=== PATIENT | female | born 1955 | race African-American/Black ===

== ENCOUNTER → 2016-09-04 | Outpatient (CLI) | payer OTHER ==
[~2016-09-04] MED LIST: REGADENOSON INJ 0.4 MG/5 ML DISP.SYRIN IV ONE
== END ==
LOC: RAD 07:32
DX: R06.00 Dyspnea, unspecified (principal); I10 Essential (primary) hypertension; I50.9 Heart failure, unspecified
CPT/HCPCS: 93017; 78452; A9500; J2785; Q9969

== ENCOUNTER 2016-11-06 21:18 | Emergency (ER) | payer OTHER ==
--- NOTE | 2016-11-07 01:53 | ER Document Report ---
HPI - HPI Patient complains to provider of: fall, hip and back pain Pain Level: 5 Context: Patient is a 61-year-old female that comes emergency department for chief complaint of pain in her lower back and in her left hip and leg. Patient states about 2 days ago she was moving boxes outside and lost her balance, she states she landed on a hard surface on her left hip/buttocks. She states the pain is worsened. She took ibuprofen with no relief. She denies bowel or bladder incontinence or retention, she denies focal numbness or weakness, her only complaint is pain in the areas she struck on the ground. She denies a blood thinner. - REPRODUCTIVE Reproductive: DENIES: : - DERM Skin Color: Normal Past Medical History - General Information source: Patient - Social History Smoking Status: Never Smoker Chew tobacco use (# tins/day): No Frequency of alcohol use: None Drug Abuse: None Lives with: Family Family History: Reviewed & Not Pertinent Patient has suicidal ideation: No Patient has homicidal ideation: No - Past Medical History Cardiac Medical History: Reports: Hx Congestive Heart Failure, Hx Heart Attack, Hx Hypercholesterolemia, Hx Hypertension Denies: Hx Coronary Artery Disease Pulmonary Medical History: Reports: Hx Asthma, Hx COPD Denies: Hx Bronchitis, Hx Pneumonia, Hx Tuberculosis Neurological Medical History: Denies: Hx Cerebrovascular Accident, Hx Seizures Endocrine Medical History: Reports: Hx Diabetes Mellitus Type 2 Renal/ Medical History: Denies: Hx Peritoneal Dialysis Malignancy Medical History: Reports: Hx Ovarian Cancer, Hx Renal (Kidney) Cancer GI Medical History: Reports: Hx Irritable Bowel Musculoskeltal Medical History: Denies Hx Arthritis Past Surgical History: Reports: Hx Abdominal Surgery - bladder suspension, mass removal, Hx Appendectomy, Hx Section, Hx Cholecystectomy, Hx Gynecologic Surgery - tubal and hysterectomy mass removed from retroperitoneal, Hx Hysterectomy, Hx Orthopedic Surgery - back, Hx Tonsillectomy. Denies: Hx Pacemaker - Immunizations Hx Diphtheria, Pertussis, Tetanus Vaccination: No Vertical Provider Document - CONSTITUTIONAL General Appearance: No Apparent Distress - Patient in no distress, when she moves she moves somewhat uncomfortably, Obese - INFECTION CONTROL TRAVEL OUTSIDE OF THE [place] IN LAST 30 DAYS: No - HEENT HEENT: Atraumatic, Normocephalic - NECK Neck: Normal Inspection - RESPIRATORY Respiratory: Breath Sounds Normal, No Respiratory Distress O2 Sat by Pulse Oximetry: 97 - CARDIOVASCULAR Cardiovascular: Regular Rate, Regular Rhythm - GI/ABDOMEN Gastrointestinal: Abdomen Soft, Abdomen Non-Tender - BACK Back: Abnormal Inspection - Patient with tenderness in the bilateral lumbar paraspinal musculature, mild midline tenderness, no saddle anesthesia, normal cervical and thoracic exam, normal upper and lower extremity range of motion, strength, distal neurovascular exam. Patient has painful passive and active elevation of the legs from lying down (mildly positive straight leg raise on both sides). - MUSCULOSKELETAL/EXTREMETIES Musculoskeletal/Extremeties: MAEW, FROM, Tender - Patient with tenderness over the left proximal femoral trochanter extending to the proximal thigh, no swelling or trauma noted - NEURO Level of Consciousness: Awake, Alert, Appropriate Motor/Sensory: No Motor Deficit, No Sensory Deficit - DERM Integumentary: Warm, Dry, No Rash Course - Re-evaluation Re-evalutation: Imaging with no acute abnormalities, patient instructed to stop taking ibuprofen because of history of diabetes, hypertension, and acute renal failure , advised to drink plenty of fluids, take the pain medication, rest, follow-up with primary care. Discussed return precautions in detail. Patient states understanding and agreement. - Vital Signs Vital signs: Temp Pulse Resp BP Pulse Ox 98.1 F 61 20 151/81 H 97 11/06/16 22:10 11/06/16 22:10 11/06/16 22:10 11/06/16 22:10 11/06/16 22:10 - Diagnostic Test Radiology reviewed: Image reviewed, Reports reviewed Discharge - Discharge Clinical Impression: Left hip pain Lower back pain Qualifiers: Chronicity: acute Back pain laterality: bilateral Sciatica presence: without sciatica Qualified Code(s): M54.5 - Low back pain Condition: Stable Disposition: HOME, SELF-CARE Additional Instructions: X-rays do not show any new findings. Rest, apply heat to the area, take pain medication as directed, avoid lifting/ twisting for now. Follow-up with primary care. Take stool softener to avoid constipation on the pain medication. Return to the emergency department for any concerning or worsening symptoms including severe pain, numbness, loss of bowel or bladder control, fever, etc. Prescriptions: Docusate Sodium [Colace 100 mg Capsule] 100 mg PO DAILY #30 capsule Oxycodone HCl/Acetaminophen [Percocet 5-325 mg Tablet] 1 - 2 tab PO Q4H PRN #20 tablet PRN Reason: Forms: Elevated Blood Pressure Referrals: [facility] [Primary Care Provider] - Follow up as needed
[2016-11-07] MEDS ORDERED: HYDROCODONE/ACETAMINOPHEN 5-325 MG 6 TAB/DSPK PO PRN (03:27)
[2016-11-07 04:22] VITALS: BP 151/68
== END 2016-11-07 04:22 | disposition home or self-care (01) ==
LOC: ER 21:18
DX: M54.5 Low back pain (principal); M25.552 Pain in left hip; M79.605 Pain in left leg; W19.XXXA Unspecified fall, initial encounter; Y93.89 Activity, other specified; I25.2 Old myocardial infarction; I10 Essential (primary) hypertension; J44.9 Chronic obstructive pulmonary disease, unspecified; J45.909 Unspecified asthma, uncomplicated; E11.9 Type 2 diabetes mellitus without complications; Z98.890 Other specified postprocedural states
CPT/HCPCS: 72110; 99284

== ENCOUNTER → 2016-11-20 | Outpatient (CLI) | payer OTHER ==
[~2016-11-20] MED LIST changes: +ALBUTEROL SULFATE 0.083% NEB 2.5 MG/3 ML AMPUL NEB ONE; -REGADENOSON INJ 0.4 MG/5 ML DISP.SYRIN IV ONE
--- NOTE | 2016-11-22 09:45 | PULMONARY FUNCTION TEST ---
DATE OF SERVICE: 11/20/2016 THE VITAL CAPACITY IS SLIGHTLY DECREASED. THE EXPIRATORY FLOW RATES ARE SLIGHTLY DECREASED. THE FEV1/VC IS 78%, PREDICTED: 82% AFTER BRONCHODILATOR, EXPIRATORY FLOW RATES SHOW NO SIGNIFICANT CHANGE. IMPRESSION: GOOD PATIENT EFFORT. SLIGHT OBSTRUCTIVE DEFECT. CC: TIMUR MOYA MD > JOJO
== END ==
LOC: RT 09:07
PROVIDERS: ATTEND Internal Medicine
DX: R06.09 Other forms of dyspnea (principal)
CPT/HCPCS: 94060

== ENCOUNTER → 2017-01-31 | Outpatient (CLI) | payer OTHER ==
--- NOTE | 2017-01-31 08:43 | RADIOLOGY REPORT (SQ) ---
EXAM DESCRIPTION: LUMBAR SPINE COMPLETE COMPLETED DATE/TIME: 01/31/2017 7:54 am REASON FOR STUDY: S/P BACK SURGERY BACK PAIN COMPARISON: 11/07/2016. NUMBER OF VIEWS: Five views including obliques. TECHNIQUE: AP, lateral, oblique, and sacral radiographic images acquired of the lumbar spine. LIMITATIONS: None. FINDINGS: MINERALIZATION: Normal. SEGMENTATION: Normal. No transitional anatomy. ALIGNMENT: Normal. VERTEBRAE: Maintained height. No fracture or worrisome bone lesion. DISCS: Multilevel disc space narrowing with osteophytes. POSTERIOR ELEMENTS: Pedicles and facets are intact. No pars defect or posterior arch defects. Marke d Facet arthropathy is present. HARDWARE: Postsurgical changes noted lower lumbar spine from prior decompression. PARASPINAL SOFT TISSUES: Normal. PELVIS: Intact as visualized. No fractures or worrisome bone lesions. SI joints intact. OTHER: No other significant finding. IMPRESSION: Advanced multilevel degenerative disc disease, spondylosis, and facet arthropathy, simil ar to prior study. Postsurgical changes in the lower lumbar spine, unchanged. TECHNICAL DOCUMENTATION: JOB ID: [id number] [employer]- All Rights Reserved
== END ==
LOC: CCC 07:23
DX: M54.9 Dorsalgia, unspecified (principal); E55.9 Vitamin D deficiency, unspecified
CPT/HCPCS: 36415; 72110; 82306

== ENCOUNTER 2017-02-12 22:35 | Emergency (ER) | payer OTHER ==
[2017-02-13 00:19] LABS: ABSOLUTE EOSINOPHILS # (AUTO) 0.1 10^3/uL (0.0-0.6); ABSOLUTE LYMPHOCYTES (AUTO) 1.5 10^3/uL (0.5-4.7); ABSOLUTE MONOCYTES (AUTO) 0.5 10^3/uL (0.1-1.4); ABSOLUTE NEUT (AUTO) 3.4 10^3/uL (1.7-8.2); BASOPHILS % (AUTO) 0.5 % (0-2); EOSINOPHILS % (AUTO) 2.3 % (0-6); HEMATOCRIT 36.8 % (36.0-47.0); HEMOGLOBIN 11.5 g/dL (12.0-15.5); HGB HCT DIFFERENCE -2.3; LYMPHOCYTES % (AUTO) 26.4 % (13-45); MEAN CORPUSCULAR HEMOGLOBIN 22.3 pg (27.0-33.4); MEAN CORPUSCULAR HGB CONC 31.2 g/dL (32.0-36.0); MEAN CORPUSCULAR VOLUME 72 fl (80-97); MONOCYTES % (AUTO) 9.7 % (3-13); RED BLOOD COUNT 5.14 10^6/uL (3.72-5.28); RED CELL DISTRIBUTION WIDTH 15.5 % (11.5-14.0); SEGMENTED NEUTROPHILS % (AUTO) 61.1 % (42-78); WHITE BLOOD COUNT 5.6 10^3/uL (4.0-10.5)
--- NOTE | 2017-02-13 00:20 | RADIOLOGY REPORT (SQ) ---
EXAM DESCRIPTION: CHEST SINGLE VIEW COMPLETED DATE/TIME: 02/13/2017 12:05 am REASON FOR STUDY: shortness of breath COMPARISON: 11.20.16 EXAM PARAMETERS: NUMBER OF VIEWS: One view. TECHNIQUE: Single frontal radiographic view of the chest acquired. RADIATION DOSE: NA LIMITATIONS: None. FINDINGS: LUNGS AND PLEURA: No opacities, masses or pneumothorax. No pleural effusion. MEDIASTINUM AND HILAR STRUCTURES: No masses. Contour normal. HEART AND VASCULAR STRUCTURES: Heart normal in size. Normal vasculature. BONES: No acute findings. HARDWARE: Left central line tip at the proximal left brachiocephalic vein, stable. OTHER: No other significant finding. IMPRESSION: No acute cardiopulmonary findings. TECHNICAL DOCUMENTATION: JOB ID: [id number]
[2017-02-13 00:33] LABS: ALANINE AMINOTRANSFERASE 29 U/L (9-52); ALKALINE PHOSPHATASE 84 U/L (38-126); ANION GAP 12 (5-19); ASPARTATE AMINO TRANSFERASE 13 U/L (14-36); BILIRUBIN,DIRECT 0.3 mg/dL (0.0-0.4); BILIRUBIN,TOTAL 0.5 mg/dL (0.2-1.3); BLOOD UREA NITROGEN 17 mg/dL (7-20); CALCIUM 9.1 mg/dL (8.4-10.2); CARBON DIOXIDE 27 mmol/L (22-30); CHLORIDE 104 mmol/L (98-107); CREATININE RESULT 0.67 mg/dL (0.52-1.25); GLUCOSE 109 mg/dL (75-110); POTASSIUM 3.7 mmol/L (3.6-5.0); TOTAL PROTEIN 7.1 g/dL (6.3-8.2)
[2017-02-13] MEDS ORDERED: PREDNISONE 20 MG TABLET PO ONE (00:35)
[2017-02-13] MEDS ORDERED: IPRATROPIUM/ALBUTEROL 0.5-2.5 MG/3 ML AMPUL NEB ONE (00:36)
[2017-02-13] MEDS ORDERED: AZITHROMYCIN 250 MG TABLET PO ONE (00:39)
--- NOTE | 2017-02-13 00:41 | ER Document Report ---
ED General - General Chief Complaint: Shortness Of Breath Stated Complaint: HEADACHE Time Seen by Provider: 02/13/17 00:03 Notes: Patient is a 61-year-old female who presents with 1 months of progressively worsening shortness of breath. Describes as difficulty getting air out. She has been trying her inhalers at home without any significant improvement of her symptoms. She does have a history of COPD and asthma. She has not seen a primary care doctor regarding today's concerns. Denies any acute worsening of her symptoms today but states that she was tired of feeling this way so came to the emergency department. She has never required intubation or hospitalization for COPD. She has not had any fever, chest pain, syncope or lower extremity edema. Notes that when her breathing gets bad she tends to get a diffuse, throbbing, mild headache. Denies any headache at the time of my assessment although states she had one earlier today. TRAVEL OUTSIDE OF THE [place] IN LAST 30 DAYS: No - Related Data Allergies/Adverse Reactions: levofloxacin [From Levaquin] Allergy (Severe, Verified 11/06/16 22:16) Shortness of Breath carisoprodol [From Soma] Allergy (Verified 11/06/16 22:16) Past Medical History - General Information source: Patient - Social History Smoking Status: Former Smoker Frequency of alcohol use: None Drug Abuse: None Lives with: Spouse/Significant other Family History: Reviewed & Not Pertinent Patient has suicidal ideation: No Patient has homicidal ideation: No - Past Medical History Cardiac Medical History: Reports: Hx Congestive Heart Failure, Hx Heart Attack, Hx Hypercholesterolemia, Hx Hypertension Denies: Hx Coronary Artery Disease Pulmonary Medical History: Reports: Hx Asthma, Hx COPD Denies: Hx Bronchitis, Hx Pneumonia, Hx Tuberculosis Neurological Medical History: Denies: Hx Cerebrovascular Accident, Hx Seizures Endocrine Medical History: Reports: Hx Diabetes Mellitus Type 2 Renal/ Medical History: Denies: Hx Peritoneal Dialysis Malignancy Medical History: Reports: Hx Ovarian Cancer, Hx Renal (Kidney) Cancer GI Medical History: Reports: Hx Irritable Bowel Musculoskeltal Medical History: Denies Hx Arthritis Past Surgical History: Reports: Hx Abdominal Surgery - bladder suspension, mass removal, Hx Appendectomy, Hx Section, Hx Cholecystectomy, Hx Gynecologic Surgery - tubal and hysterectomy mass removed from retroperitoneal, Hx Hysterectomy, Hx Orthopedic Surgery - back, Hx Tonsillectomy. Denies: Hx Pacemaker - Immunizations Hx Diphtheria, Pertussis, Tetanus Vaccination: No Review of Systems - Review of Systems Notes: Constitutional: Negative for fever. HENT: Negative for sore throat. Eyes: Negative for visual changes. Cardiovascular: Negative for chest pain. Respiratory: Positive for shortness of breath. Gastrointestinal: Negative for abdominal pain, vomiting or diarrhea. Genitourinary: Negative for dysuria. Musculoskeletal: Negative for back pain. Skin: Negative for rash. Neurological: Negative for headaches, weakness or numbness. 10 point ROS negative except as marked above and in HPI. Physical Exam - Vital signs Vitals: Temp Pulse Resp BP Pulse Ox 98.1 F 80 20 184/88 H 95 02/12/17 22:39 02/12/17 22:39 02/12/17 22:39 02/12/17 22:39 02/12/17 22:39 Interpretation: Hypertensive Notes: PHYSICAL EXAMINATION: GENERAL: Well-appearing, well-nourished and in no acute distress. HEAD: Atraumatic, normocephalic. EYES: Pupils equal round and reactive to light, extraocular movements intact, sclera anicteric, conjunctiva are normal. ENT: nares patent, oropharynx clear without exudates. Moist mucous membranes. NECK: Normal range of motion, supple without lymphadenopathy LUNGS: Breath sounds clear to auscultation bilaterally and equal. Expiratory wheezing in all lung hummel HEART: Regular rate and rhythm without murmurs ABDOMEN: Soft, nontender, normoactive bowel sounds. No guarding, no rebound. No masses appreciated. EXTREMITIES: Normal range of motion, no pitting or edema. No cyanosis. NEUROLOGICAL: No focal neurological deficits. Moves all extremities spontaneously and on command. PSYCH: Normal mood, normal affect. SKIN: Warm, Dry, normal turgor, no rashes or lesions noted. Course - Re-evaluation Re-evalutation: 02/13/17 00:39 Patient presents with a mild exacerbation of their baseline COPD. Mild wheezing at time of presentation but vitals do not show significant hypoxemia or tachypnea. No retractions. Patient did clinically improve after receiving nebulizers here in the emergency department. Chest x-ray without evidence of an acute pneumonia. Laboratories do not show acute kidney injury or significant leukocytosis. Patient able to ambulate without any respiratory distress. Based on patient's overall reassuring assessment, I believe they are stable for outpatient management with steroids and oral antibiotics. Patient has nebulizers at home. I do not suspect an acute alternative pathology at this time based on history and exam including acute pulmonary embolus, ACS, pneumothorax, or aortic dissection. At this time will discharge with return precautions and follow-up recommendations. Verbal discharge instructions given a the bedside and opportunity for questions given. Medication warnings reviewed. Patient is in agreement with this plan and has verbalized understanding of return precautions and the need for primary care follow-up in the next 24-72 hours. - Vital Signs Vital signs: Temp Pulse Resp BP Pulse Ox 98.3 F 80 13 134/73 H 97 02/13/17 00:07 02/12/17 22:39 02/13/17 01:01 02/13/17 01:01 02/13/17 01:01 - Laboratory Result Diagrams: 02/13/17 00:05 02/13/17 00:05 Laboratory results interpreted by me: 02/13/17 02/13/17 00:05 00:05 Hgb 11.5 L MCV 72 L MCH 22.3 L MCHC 31.2 L RDW 15.5 H AST 13 L - Diagnostic Test Radiology reviewed: Image reviewed, Reports reviewed Radiology results interpreted by me: 02/13/17 00:42 Chest x-ray: No acute infiltrate or pneumothorax Discharge - Discharge Clinical Impression: COPD exacerbation Condition: Good Disposition: HOME, SELF-CARE Additional Instructions: You were seen for a COPD exacerbation. Your symptoms improved with treatment here in the emergency department. However, it is very important that you return to the emergency department immediately if you began to have worsening difficulty breathing that does not respond to your normal home nebulizers. You are also being sent home on a five-day course of steroids that you should start taking tomorrow. Please also take the antibiotics as prescribed. Please also follow closely with your primary care physician. You should eturn to emergency department if you develop fever greater than 101, persistent cough, persistent vomiting, pass out, or any other symptoms that are concerning to you. Prescriptions: Azithromycin 250 mg PO DAILY #4 tablet Prednisone [Deltasone 20 mg Tablet] 3 tab PO DAILY 5 Days
[2017-02-13 01:15] VITALS: BP 134/73
--- NOTE | 2017-02-13 08:31 | EKG REPORT ---
SEVERITY:- ABNORMAL ECG - SINUS RHYTHM LEFT VENTRICULAR HYPERTROPHY : Confirmed by: María De Leon 13-Feb-2017 08:30:32
== END 2017-02-13 01:15 | disposition home or self-care (01) ==
LOC: ER 22:35
DX: J44.1 Chronic obstructive pulmonary disease with (acute) exacerbation (principal); R06.02 Shortness of breath; R51 Headache; Z87.891 Personal history of nicotine dependence
CPT/HCPCS: 93005; 94640; 99285; 36415; 85025; 80053; 83880; 71010; 93010; J7512; J7620

== ENCOUNTER → 2017-05-01 | Outpatient (CLI) | payer OTHER ==
--- NOTE | 2017-05-01 15:58 | XCELERA REPORT ---
[address] [address] Lower Extremity Venous Evaluation Name: MAXINE DON Age: 61 yrs Gender: Female : 1955 Patient Status: Outpatient Patient Location: Study Date: 05/01/2017 11:09 AM Procedure: Color flow and duplex imaging bilaterally of the veins of the lower extremities as well as the Common Femoral veins. Reason For Study: BLE EDEMA Ordering Physician: KARLI CONNELLY Performed By: Cindy Will Right Sided Venous Evaluation Normal vessel filling wall to wall, compression and augmentation as well as Colour flow down to the infrageniculate veins. Left Sided Venous Evaluation Normal vessel filling wall to wall, compression and augmentation as well as Colour flow down to the infrageniculate veins. Interpretation Summary No duplex evidence of DVT or obstruction in the bilateral lower extremities. : KARLI CONNELLY > Magdaleno Jefferson
== END ==
LOC: SP 10:54
PROVIDERS: ATTEND Family Medicine
DX: R60.1 Generalized edema (principal)
CPT/HCPCS: 93970

== ENCOUNTER 2017-05-03 21:27 | Inpatient (IN) | payer OTHER ==
[2017-05-03] MEDS ORDERED: IPRATROPIUM/ALBUTEROL 0.5-2.5 MG/3 ML AMPUL NEB ONE (22:24)
[2017-05-03] MEDS ORDERED: METHYLPREDNISOLONE INJ 125 MG/2 ML SDV IV ONE (22:24)
[2017-05-03 22:58] LABS: ABSOLUTE EOSINOPHILS # (AUTO) 0.2 10^3/uL (0.0-0.6); ABSOLUTE LYMPHOCYTES (AUTO) 1.4 10^3/uL (0.5-4.7); ABSOLUTE MONOCYTES (AUTO) 0.6 10^3/uL (0.1-1.4); ABSOLUTE NEUT (AUTO) 2.5 10^3/uL (1.7-8.2); EOSINOPHILS % (AUTO) 5.1 % (0-6); HEMOGLOBIN 11.4 g/dL (12.0-15.5); HGB HCT DIFFERENCE -1.8; LYMPHOCYTES % (AUTO) 29.7 % (13-45); MEAN CORPUSCULAR HEMOGLOBIN 23.2 pg (27.0-33.4); MEAN CORPUSCULAR HGB CONC 31.6 g/dL (32.0-36.0); MEAN CORPUSCULAR VOLUME 73 fl (80-97); MONOCYTES % (AUTO) 11.6 % (3-13); RED CELL DISTRIBUTION WIDTH 15.6 % (11.5-14.0); SEGMENTED NEUTROPHILS % (AUTO) 52.6 % (42-78); WHITE BLOOD COUNT 4.8 10^3/uL (4.0-10.5)
[2017-05-03] MEDS: MAGNESIUM SULFATE/D5W 1 GM/100 ML RTUPB IV SCH ×2 (23:07→23:38)
[2017-05-03 23:09] LABS: ANION GAP 10 (5-19); BLOOD UREA NITROGEN 17 mg/dL (7-20); CALCIUM 9.6 mg/dL (8.4-10.2); CARBON DIOXIDE 29 mmol/L (22-30); CHLORIDE 104 mmol/L (98-107); CREATININE RESULT 0.65 mg/dL (0.52-1.25); GLUCOSE 102 mg/dL (75-110); POTASSIUM 3.8 mmol/L (3.6-5.0); SODIUM 143.2 mmol/L (137-145)
--- NOTE | 2017-05-03 23:15 | EKG REPORT ---
SEVERITY:- ABNORMAL ECG - SINUS RHYTHM CONSIDER LEFT VENTRICULAR HYPERTROPHY : Confirmed by: María De Leon 03-May-2017 23:15:24
--- NOTE | 2017-05-03 23:15 | RADIOLOGY REPORT (SQ) ---
EXAM DESCRIPTION: CHEST SINGLE VIEW COMPLETED DATE/TIME: 05/03/2017 11:04 pm REASON FOR STUDY: sob COMPARISON: 02/12/2017. NUMBER OF VIEWS: One view. TECHNIQUE: Single frontal radiographic view of the chest acquired. LIMITATIONS: None. FINDINGS: LUNGS AND PLEURA: No opacities, masses or pneumothorax. No pleural effusion. MEDIASTINUM AND HILAR STRUCTURES: No masses. Contour normal. HEART AND VASCULAR STRUCTURES: Heart normal in size. Normal vasculature. BONES: No acute findings. HARDWARE: Central line remains in place. OTHER: No other significant finding. IMPRESSION: NO SIGNIFICANT RADIOGRAPHIC FINDING IN THE CHEST. TECHNICAL DOCUMENTATION: JOB ID: [id number] [facility] [employer]- All Rights Reserved
[2017-05-03 23:22] LABS: TROPONIN I < 0.012 ng/mL
--- NOTE | 2017-05-03 23:25 | ER Document Report ---
ED General - General Chief Complaint: Shortness Of Breath Stated Complaint: TROUBLE BREATHING Time Seen by Provider: 05/03/17 21:53 Notes: Patient is a 61-year-old female with past medical history of COPD, hypertension , who presents with 3 days of progressively worsening shortness of breath. States that she has had severe wheezing at home that has not been responsive to her home albuterol treatments. Exertion significantly worsens her shortness of breath. She denies any chest pain, pleuritic pain or hemoptysis. Has a history of similar symptoms in the past due to COPD exacerbations. She has not seen a primary care doctor regarding today's concerns. She does also note bilateral lower extremity edema that is unchanged today and is been informed that this is due to chronic venous insufficiency as opposed to CHF. TRAVEL OUTSIDE OF THE [place] IN LAST 30 DAYS: No - Related Data Allergies/Adverse Reactions: levofloxacin [From Levaquin] Allergy (Severe, Verified 05/03/17 23:25) Shortness of Breath carisoprodol [From Soma] Allergy (Verified 05/03/17 23:25) Past Medical History - General Information source: Patient - Social History Smoking Status: Former Smoker Frequency of alcohol use: None Drug Abuse: None Lives with: Alone Family History: Reviewed & Not Pertinent Patient has suicidal ideation: No Patient has homicidal ideation: No - Past Medical History Cardiac Medical History: Reports: Hx Congestive Heart Failure, Hx Heart Attack, Hx Hypercholesterolemia, Hx Hypertension Denies: Hx Coronary Artery Disease Pulmonary Medical History: Reports: Hx Asthma, Hx COPD Denies: Hx Bronchitis, Hx Pneumonia, Hx Tuberculosis Neurological Medical History: Denies: Hx Cerebrovascular Accident, Hx Seizures Endocrine Medical History: Reports: Hx Diabetes Mellitus Type 2 Renal/ Medical History: Denies: Hx Peritoneal Dialysis Malignancy Medical History: Reports: Hx Ovarian Cancer, Hx Renal (Kidney) Cancer GI Medical History: Reports: Hx Irritable Bowel Musculoskeltal Medical History: Denies Hx Arthritis Past Surgical History: Reports: Hx Abdominal Surgery - bladder suspension, mass removal, Hx Appendectomy, Hx Section, Hx Cholecystectomy, Hx Gynecologic Surgery - tubal and hysterectomy mass removed from retroperitoneal, Hx Hysterectomy, Hx Orthopedic Surgery - back, Hx Tonsillectomy. Denies: Hx Pacemaker - Immunizations Hx Diphtheria, Pertussis, Tetanus Vaccination: No Review of Systems - Review of Systems Notes: Constitutional: Negative for fever. HENT: Negative for sore throat. Eyes: Negative for visual changes. Cardiovascular: Negative for chest pain. Respiratory: Positive for shortness of breath. Gastrointestinal: Negative for abdominal pain, vomiting or diarrhea. Genitourinary: Negative for dysuria. Musculoskeletal: Negative for back pain. Skin: Negative for rash. Neurological: Negative for headaches, weakness or numbness. 10 point ROS negative except as marked above and in HPI. Physical Exam - Vital signs Vitals: Temp Pulse Resp BP Pulse Ox 98.6 F 73 18 156/87 H 98 05/03/17 21:30 05/03/17 21:30 05/03/17 21:30 05/03/17 21:30 05/03/17 21:30 Interpretation: Hypertensive Notes: PHYSICAL EXAMINATION: GENERAL: Appears uncomfortable, moderately dyspneic HEAD: Atraumatic, normocephalic. EYES: Pupils equal round and reactive to light, extraocular movements intact, sclera anicteric, conjunctiva are normal. ENT: nares patent, oropharynx clear without exudates. Moderately dry mucous membranes. NECK: Normal range of motion, supple without lymphadenopathy LUNGS: Diffuse wheezing in all lung hummel, moderately diminished air movement throughout. No distress. HEART: Regular rate and rhythm without murmurs ABDOMEN: Soft, nontender, normoactive bowel sounds. No guarding, no rebound. No masses appreciated. EXTREMITIES: Normal range of motion, 4+ pitting edema in the bilateral lower extremities is equal and symmetric.. No cyanosis. NEUROLOGICAL: No focal neurological deficits. Moves all extremities spontaneously and on command. PSYCH: Normal mood, normal affect. SKIN: Warm, Dry, normal turgor, no rashes or lesions noted. Course - Re-evaluation Re-evalutation: 05/03/17 23:25 Patient presents with diffuse expiratory wheezing in all lung hummel, moderately diminished air movement throughout. Her initial respiratory was 20- 22 and saturating 100% room air. Suspect likely COPD exacerbation. Patient was started on magnesium, Solu-Medrol and continuous nebulizers. Will continue to monitor closely as although patient's vitals do not suggest a severe exacerbation, her overall clinical picture and appearance as well as lung examination is worrisome for an acute COPD exacerbation with a potential for clinical worsening. 0020 Patient continues to be severely wheezy on exam although continues to move air appropriately. She has not had any significant improvement despite our interventions. Chest x-ray is clear without evidence of an acute pneumothorax or infiltrate. Will continue to monitor. 0040-patient again continues to be severely wheezy, vitals however remain within normal limits, labs unremarkable. Patient was ambulated and her initial heart rate was 62 and rapidly climbed to 228 with ambulation of less than 100 feet in distance. She however did not desaturate although did become quite tachypneic. 0120-I have discussed this case with the hospitalist Dr. Francisco Perez to discuss possible admission. We have agreed that given her normal vitals and reassuring evaluation but continued concerning lung findings and overall appearance that we should continue to monitor here in the emergency department for 1 more hour. We will then re-ambulate the patient and see how she does. If she continues to have persistent tachycardia with ambulation will plan for hospitalization. 05/04/17 02:47 Patient again became severely tachycardic with rate of 124 with ambition from her room to the nursing station and again appeared very uncomfortable. I discussed with Dr. Perez who will admit. - Vital Signs Vital signs: Temp Pulse Resp BP Pulse Ox 98.6 F 56 L 20 140/74 H 100 05/03/17 21:30 05/03/17 23:00 05/03/17 23:00 05/03/17 23:00 05/03/17 23:00 - Laboratory Result Diagrams: 05/03/17 22:45 05/03/17 22:45 Laboratory results interpreted by me: 05/03/17 22:45 Hgb 11.4 L MCV 73 L MCH 23.2 L MCHC 31.6 L RDW 15.6 H - Diagnostic Test Radiology reviewed: Image reviewed, Reports reviewed Radiology results interpreted by me: 05/04/17 02:47 Chest x-ray: No acute infiltrate or pneumothorax - EKG Interpretation by Me Additional EKG results interpreted by me: 05/04/17 02:48 Normal sinus rhythm. Rate 72. No ST elevations or depressions. QTC is 456. Critical Care Note - Critical Care Note Total time excluding time spent on procedures (mins): 37 Comments: Critical care time spent obtaining history from patient or surrogate, discussions with consultants, development of treatment plan with patient or surrogate, evaluation of patient's response to treatment, examination of patient , ordering and performing treatments and interventions, ordering and review of laboratory studies, re-evaluation of patient's condition, ordering and review of radiographic studies and review of old charts Discharge - Discharge Clinical Impression: COPD exacerbation Condition: Good Disposition: ADMITTED OBSERVATION Admitting Provider: Augusto Cortez Chris Unit Admitted: Telemetry
[2017-05-03] MEDS ORDERED: ALBUTEROL SULFATE 0.083% NEB 2.5 MG/3 ML AMPUL NEB ONE (23:51)
[2017-05-04] MEDS ORDERED: CEFTRIAXONE 1 GM/D5W RTU 1 GM/50 ML RTUPB IV ONE (01:32)
[2017-05-04] MEDS ORDERED: AZITHROMYCIN 250 MG TABLET PO ONE (01:32)
[2017-05-04] MEDS ORDERED: ACETAMINOPHEN 325 MG TABLET PO PRN (02:44)
[2017-05-04] MEDS ORDERED: GUAIFENESIN SYRP 200 MG/10 ML UDC PO PRN (02:44)
[2017-05-04] MEDS ORDERED: CHLORPHENIRAMINE MALEATE 4 MG TABLET PO ONE (02:44)
[2017-05-04] MEDS: DILTIAZEM HCL 60 MG TABLET PO SCH ×4 (03:31→20:39)
[2017-05-04] MEDS ORDERED: CHLORPHENIRAMINE MALEATE 4 MG TABLET ONE (04:34)
[2017-05-04] MEDS ORDERED: FLUTICASONE NASAL SPRAY 50 MCG/SPRY 120 SPRAY/16 GM ONE (04:35)
[2017-05-04 05:05] LABS: APPEARANCE,URINE CLEAR; BILIRUBIN,URINE NEGATIVE (NEGATIVE); GLUCOSE, URINE 50 mg/dL (NEGATIVE); KETONES,URINE NEGATIVE (NEGATIVE); LEUKOCYTE ESTERASE,URINE NEGATIVE (NEGATIVE); NITRITE,URINE NEGATIVE (NEGATIVE); PROTEIN,URINE NEGATIVE (NEGATIVE); UROBILINOGEN,URINE NEGATIVE mg/dL (<2.0)
[2017-05-04] MEDS: HEPARIN SOD (PORCINE) 5,000 UNIT/ML 1 ML SYRINGE SUBCUT SCH ×3 (05:08→21:47)
[2017-05-04] MEDS ORDERED: HYDRALAZINE HCL INJ/PF 20 MG/1 ML SDV IV PRN (05:41)
--- NOTE | 2017-05-04 05:54 | PDOC H&P ---
History of Present Illness Admission Date/PCP: 05/04/17 02:55 Patient complains of: Shortness of breath History of Present Illness: MAXINE DON is a 61 year old female with a history of cholecystectomy, appendectomy, morbid obesity, obstructive sleep apnea, diabetes, hypertension, COPD and chronic bronchitis who would been her usual state of health until approximately 24 hours prior to presentation having subjective fever and chills shortness of breath and a nonproductive cough prompting to seek evaluation emergency room where she is found to be in respiratory distress requiring continuous albuterol nebulizer and stress dose steroids. She is somewhat improved though continues to have global wheeze and rhonchi with tachycardia in the 140s with minimal exertion greater than 1 hour after albuterol. She denies postnasal drip, uncontrolled GERD, recent change in medications. She is exposed to a grandchild who has pneumonia. Past Medical History Cardiac Medical History: Reports: Congestive Heart Failure, Myocardial Infarction, Hyperlipidema, Hypertension Denies: Coronary Artery Disease Pulmonary Medical History: Reports: Asthma, Chronic Obstructive Pulmonary Disease (COPD) Denies: Bronchitis, Pneumonia, Tuberculosis Neurological Medical History: Denies: Seizures Endocrine Medical History: Reports: Diabetes Mellitus Type 2 Malignancy Medical History: Reports: Ovarian Cancer, Renal (Kidney) Cancer Musculoskeltal Medical History: Denies: Arthritis Hematology: Reports: Anemia - hx of Past Surgical History Past Surgical History: Reports: Appendectomy, Section, Cholecystectomy , Hysterectomy, Orthopedic Surgery - back, Tonsillectomy Denies: Pacemaker Social History Information Source: Patient, [facility] Records Lives with: Family Smoking Status: Former Smoker Frequency of Alcohol Use: None Hx Recreational Drug Use: No Drugs: None Hx Prescription Drug Abuse: No - Advance Directive Resuscitation Status: Full Code Family History Family History: COPD Parental Family History Reviewed: Yes Children Family History Reviewed: Yes Sibling(s) Family History Reviewed.: Yes Medication/Allergy Home Medications: Albuterol Sulfate 2.5 mg IN Q6H PRN 09/09/15 Atorvastatin Calcium 20 mg PO QHS 09/09/15 Ergocalciferol (Vitamin D2) [Vitamin D] 50,000 unit PO Q7D 09/09/15 Metoprolol Succinate 12.5 mg PO DAILY 09/09/15 Tramadol HCl [Ultram] 24 mg PO Q6HP PRN #30 tablet 09/11/15 Lisinopril 20 mg PO DAILY 10/02/15 Docusate Sodium [Colace 100 mg Capsule] 100 mg PO DAILY #30 capsule 11/07/16 Oxycodone HCl/Acetaminophen [Percocet 5-325 mg Tablet] 1 - 2 tab PO Q4H PRN #20 tablet 11/07/16 Azithromycin 250 mg PO DAILY #4 tablet 02/13/17 Prednisone [Deltasone 20 mg Tablet] 3 tab PO DAILY 5 Days tablet 02/13/17 Allergies/Adverse Reactions: levofloxacin [From Levaquin] Allergy (Severe, Verified 05/03/17 23:25) Shortness of Breath carisoprodol [From Soma] Allergy (Verified 05/03/17 23:25) Review of Systems Constitutional: PRESENT: fatigue, fever(s), weakness, weight gain Eyes: ABSENT: visual disturbances Ears: ABSENT: hearing changes Cardiovascular: ABSENT: chest pain, dyspnea on exertion, edema, orthropnea, palpitations Respiratory: PRESENT: cough, dyspnea. ABSENT: sputum Gastrointestinal: ABSENT: abdominal pain, constipation, diarrhea, hematemesis, hematochezia, nausea, vomiting Genitourinary: ABSENT: dysuria, hematuria Musculoskeletal: ABSENT: joint swelling Integumentary: ABSENT: rash, wounds Neurological: ABSENT: abnormal gait, abnormal speech, confusion, dizziness, focal weakness, syncope Psychiatric: ABSENT: anxiety, depression, homidical ideation, suicidal ideation Endocrine: ABSENT: cold intolerance, heat intolerance, polydipsia, polyuria Hematologic/Lymphatic: ABSENT: easy bleeding, easy bruising Physical Exam Vital Signs: Temp Pulse Resp BP Pulse Ox 98.2 F 78 22 H 182/88 H 93 05/04/17 04:39 05/04/17 04:44 05/04/17 04:39 05/04/17 04:39 05/04/17 04:39 Intake & Output 05/02/17 05/03/17 05/04/17 11:59 11:59 11:59 Weight 135.6 kg General appearance: PRESENT: cooperative, morbidly obese, obese, severe distress. ABSENT: hard of hearing, thin Head exam: PRESENT: atraumatic, normocephalic Eye exam: PRESENT: conjunctiva pink, EOMI, PERRLA. ABSENT: scleral icterus Ear exam: PRESENT: normal external ear exam Mouth exam: PRESENT: moist, tongue midline Neck exam: ABSENT: carotid bruit, JVD, lymphadenopathy, thyromegaly Respiratory exam: PRESENT: accessory muscle use, crackles, prolonged expiratory phas, rales, retraction, rhonchi, symmetrical, tachypnea Cardiovascular exam: PRESENT: RRR. ABSENT: diastolic murmur, rubs, systolic murmur Pulses: PRESENT: normal dorsalis pedis pul Vascular exam: PRESENT: normal capillary refill GI/Abdominal exam: PRESENT: normal bowel sounds, soft. ABSENT: distended, guarding, mass, organolmegaly, rebound, tenderness Rectal exam: PRESENT: deferred Extremities exam: PRESENT: full ROM. ABSENT: calf tenderness, clubbing, pedal edema Neurological exam: PRESENT: alert, awake, oriented to person, oriented to place , oriented to time, oriented to situation, CN II-XII grossly intact. ABSENT: motor sensory deficit Psychiatric exam: PRESENT: appropriate affect, normal mood. ABSENT: homicidal ideation, suicidal ideation Skin exam: PRESENT: dry, intact, warm. ABSENT: cyanosis, rash Results Laboratory Results: 05/04/17 04:10 Urine Color YELLOW Urine Appearance CLEAR Urine pH 5.0 Ur Specific [place] 1.010 Urine Protein NEGATIVE Urine Glucose (UA) 50 H Urine Ketones NEGATIVE Urine Blood NEGATIVE Urine Nitrite NEGATIVE Ur Leukocyte Esterase NEGATIVE Urine WBC (Auto) 2 Urine RBC (Auto) 0 Impressions: Chest X-Ray 05/03/17 22:23 IMPRESSION: NO SIGNIFICANT RADIOGRAPHIC FINDING IN THE CHEST. Assessment & Plan - Diagnosis (1) Pneumonia Is this a current diagnosis for this admission?: Yes Plan: Empiric antibiotics, incentive spirometry follow-up culture and CBC. (2) COPD exacerbation Is this a current diagnosis for this admission?: Yes Plan: Secondary to #1, flutter valve, albuterol and Atrovent, Flonase. Consider steroids (3) Diabetes Is this a current diagnosis for this admission?: Yes Plan: Home regiment plus sliding scale (4) Morbid obesity Is this a current diagnosis for this admission?: Yes Plan: Evaluate TSH. (5) Obstructive sleep apnea Is this a current diagnosis for this admission?: Yes Plan: BiPAP.
[2017-05-04 06:11] LABS: ABSOLUTE LYMPHOCYTES (AUTO) 0.6 10^3/uL (0.5-4.7); ABSOLUTE MONOCYTES (AUTO) 0.1 10^3/uL (0.1-1.4); ABSOLUTE NEUT (AUTO) 6.1 10^3/uL (1.7-8.2); BASOPHILS % (AUTO) 0.1 % (0-2); EOSINOPHILS % (AUTO) 0.1 % (0-6); HEMATOCRIT 33.9 % (36.0-47.0); HEMOGLOBIN 10.8 g/dL (12.0-15.5); HGB HCT DIFFERENCE -1.5; LYMPHOCYTES % (AUTO) 9.4 % (13-45); MEAN CORPUSCULAR HEMOGLOBIN 22.9 pg (27.0-33.4); MEAN CORPUSCULAR HGB CONC 31.8 g/dL (32.0-36.0); MEAN CORPUSCULAR VOLUME 72 fl (80-97); MONOCYTES % (AUTO) 1.2 % (3-13); RED BLOOD COUNT 4.71 10^6/uL (3.72-5.28); RED CELL DISTRIBUTION WIDTH 15.7 % (11.5-14.0); SEGMENTED NEUTROPHILS % (AUTO) 89.2 % (42-78); WHITE BLOOD COUNT 6.9 10^3/uL (4.0-10.5)
[2017-05-04 06:22] LABS: ANION GAP 16 (5-19); BLOOD UREA NITROGEN 15 mg/dL (7-20); CALCIUM 9.5 mg/dL (8.4-10.2); CARBON DIOXIDE 23 mmol/L (22-30); CHLORIDE 106 mmol/L (98-107); CREATININE RESULT 0.63 mg/dL (0.52-1.25); GLUCOSE 199 mg/dL (75-110); POTASSIUM 3.7 mmol/L (3.6-5.0); SODIUM 144.7 mmol/L (137-145)
[2017-05-04] MEDS: IPRATROPIUM/ALBUTEROL 0.5-2.5 MG/3 ML AMPUL NEB SCH ×3 (08:16→20:54)
[2017-05-04] MEDS: DOCUSATE SODIUM 100 MG CAPSULE PO SCH (11:00)
[2017-05-04] MEDS: GUAIFENESIN 600 MG TABLET.SA PO SCH ×2 (11:01→21:42)
[2017-05-04] MEDS: CEFTRIAXONE 1 GM/D5W RTU 1 GM/50 ML RTUPB IV SCH (11:02)
[2017-05-04] MEDS: LISINOPRIL 10 MG TABLET PO SCH (11:03)
[2017-05-04] MEDS: FLUTICASONE NASAL SPRAY 50 MCG/SPRY 120 SPRAY/16 GM NASL SCH ×2 (11:03→21:44)
[2017-05-04] MEDS: AZITHROMYCIN 500 MG in DEXTROSE 5%-WATER 250 ML IV SCH (11:48)
[2017-05-04] MEDS ORDERED: DEXTROSE 40% GEL 15 GM TUBE PO PRN ×2 (11:58)
[2017-05-04] MEDS ORDERED: DEXTROSE 50%-WATER 25 GM/50 ML DISP.SYRIN IV PRN ×2 (11:58)
[2017-05-04] MEDS ORDERED: GLUCAGON,HUMAN RECOMB 1 MG INJ IM PRN (11:58)
[2017-05-04] MEDS: INSULIN LISPRO 100 UNIT/ML 3 ML VIAL SUBCUT PRN ×3 (12:22→21:47)
[2017-05-04] MEDS ORDERED: METHYLPREDNISOLONE INJ 40 MG/1 ML SDV IV ONE (12:30)
[2017-05-04] MEDS: ATORVASTATIN CALCIUM 20 MG TABLET PO SCH (21:42)
[2017-05-04] MEDS: METHYLPREDNISOLONE INJ 40 MG/1 ML SDV IV SCH (21:43)
[2017-05-05] MEDS: IPRATROPIUM/ALBUTEROL 0.5-2.5 MG/3 ML AMPUL NEB SCH ×4 (01:43→20:56)
[2017-05-05] MEDS: DILTIAZEM HCL 60 MG TABLET PO SCH ×2 (02:06→09:32)
[2017-05-05 04:42] LABS: ABSOLUTE LYMPHOCYTES (AUTO) 0.9 10^3/uL (0.5-4.7); ABSOLUTE MONOCYTES (AUTO) 0.2 10^3/uL (0.1-1.4); ABSOLUTE NEUT (AUTO) 8.5 10^3/uL (1.7-8.2); BASOPHILS % (AUTO) 0.2 % (0-2); HEMATOCRIT 34.9 % (36.0-47.0); HEMOGLOBIN 11.1 g/dL (12.0-15.5); HGB HCT DIFFERENCE -1.6; LYMPHOCYTES % (AUTO) 9.4 % (13-45); MEAN CORPUSCULAR HEMOGLOBIN 23.4 pg (27.0-33.4); MEAN CORPUSCULAR HGB CONC 31.8 g/dL (32.0-36.0); MEAN CORPUSCULAR VOLUME 74 fl (80-97); MONOCYTES % (AUTO) 1.9 % (3-13); RED BLOOD COUNT 4.76 10^6/uL (3.72-5.28); RED CELL DISTRIBUTION WIDTH 15.4 % (11.5-14.0); SEGMENTED NEUTROPHILS % (AUTO) 88.5 % (42-78); WHITE BLOOD COUNT 9.6 10^3/uL (4.0-10.5)
[2017-05-05 04:56] LABS: ANION GAP 13 (5-19); BLOOD UREA NITROGEN 19 mg/dL (7-20); CALCIUM 9.6 mg/dL (8.4-10.2); CARBON DIOXIDE 25 mmol/L (22-30); CHLORIDE 106 mmol/L (98-107); CREATININE RESULT 0.66 mg/dL (0.52-1.25); GLUCOSE 162 mg/dL (75-110); MAGNESIUM 2.3 mg/dL (1.6-2.3)
[2017-05-05 05:06] LABS: POTASSIUM 4.8 mmol/L (3.6-5.0)
[2017-05-05] MEDS: METHYLPREDNISOLONE INJ 40 MG/1 ML SDV IV SCH ×3 (06:04→21:47)
[2017-05-05] MEDS: HEPARIN SOD (PORCINE) 5,000 UNIT/ML 1 ML SYRINGE SUBCUT SCH ×3 (06:04→21:48)
[2017-05-05] MEDS: DOCUSATE SODIUM 100 MG CAPSULE PO SCH (09:17)
[2017-05-05] MEDS: GUAIFENESIN 600 MG TABLET.SA PO SCH ×2 (09:17→21:45)
[2017-05-05] MEDS: CEFTRIAXONE 1 GM/D5W RTU 1 GM/50 ML RTUPB IV SCH (09:18)
[2017-05-05] MEDS: LISINOPRIL 10 MG TABLET PO SCH (09:20)
[2017-05-05] MEDS: FLUTICASONE NASAL SPRAY 50 MCG/SPRY 120 SPRAY/16 GM NASL SCH ×2 (09:20→21:46)
[2017-05-05] MEDS: INSULIN LISPRO 100 UNIT/ML 3 ML VIAL SUBCUT PRN ×3 (09:32→21:48)
[2017-05-05] MEDS: AZITHROMYCIN 500 MG in DEXTROSE 5%-WATER 250 ML IV SCH (10:37)
--- NOTE | 2017-05-05 12:57 | PDOC PROGRESS REPORT ---
Subjective Progress Note for:: 05/05/17 Subjective:: The patient is a 61-year-old morbidly obese female who has a history of chronic dyspnea. She also is concerned about progressive lower extremity edema. She sees the [facility] in [place]. She has been placed on Lasix in the past that has led to acute renal failure. Looking through the records at [facility] it appears that the patient has had a fairly thorough evaluation. She had an echocardiogram in August 2016. This demonstrated an ejection fraction of 70% with grade 1 diastolic dysfunction. On September 04, 2016 the patient had a Cardiolite stress test which was negative for ischemia. The patient had pulmonary function testing in October 2016 which is essentially normal. The only did I found or pre-and post spirometry data. I did not see lung volume testing or diffusion capacity. Prior to this hospitalization the patient had bilateral lower extremity venous Dopplers which were negative. The patient presents with increasing dyspnea and wheezing. She also has had fevers and chills. She is currently being treated for pneumonia, but, her admission chest x-ray is unremarkable. The patient also has a history of obstructive sleep apnea. She states that she is continuing to fall asleep during the day and she is wondering if her pressure is adequate. I asked her if her machine has been calibrated. She is currently without insurance and does not have a way to have her machine evaluated. Physical Exam Vital Signs: Temp Pulse Resp BP Pulse Ox 97.3 F 62 29 H 144/73 H 96 05/05/17 07:14 05/05/17 07:59 05/05/17 07:59 05/05/17 07:14 05/05/17 07:59 Intake & Output 05/04/17 05/05/17 05/06/17 06:59 06:59 06:59 Intake Total 0 Output Total 1950 Balance 130 Weight 135.6 kg 141.5 kg General appearance: PRESENT: no acute distress, cooperative Head exam: PRESENT: atraumatic Eye exam: PRESENT: EOMI Mouth exam: PRESENT: moist Respiratory exam: PRESENT: wheezes - Wheezing on exam is much less pronounced today. Cardiovascular exam: PRESENT: RRR GI/Abdominal exam: PRESENT: normal bowel sounds, soft - obese Rectal exam: PRESENT: deferred Musculoskeletal exam: PRESENT: full ROM Neurological exam: PRESENT: alert, awake Psychiatric exam: PRESENT: appropriate affect Skin exam: PRESENT: intact, normal color, warm Results Laboratory Results: 05/05/17 04:27 05/05/17 04:27 05/05/17 05/05/17 05/05/17 04:27 04:27 04:27 WBC 9.6 RBC 4.76 Hgb 11.1 L Hct 34.9 L MCV 74 L MCH 23.4 L MCHC 31.8 L RDW 15.4 H Plt Count 190 Seg Neutrophils % 88.5 H Lymphocytes % 9.4 L Monocytes % 1.9 L Eosinophils % 0.0 Basophils % 0.2 Absolute Neutrophils 8.5 H Absolute Lymphocytes 0.9 Absolute Monocytes 0.2 Absolute Eosinophils 0.0 Absolute Basophils 0.0 Sodium 144.0 Potassium 4.8 D Chloride 106 Carbon Dioxide 25 Anion Gap 13 BUN 19 Creatinine 0.66 Est GFR ( Amer) > 60 Est GFR (Non-Af Amer) > 60 Glucose 162 H Calcium 9.6 Magnesium 2.3 TSH 0.21 L Impressions: Chest X-Ray 05/03/17 22:23 IMPRESSION: NO SIGNIFICANT RADIOGRAPHIC FINDING IN THE CHEST. Assessment & Plan - Diagnosis (1) Asthma with exacerbation Is this a current diagnosis for this admission?: Yes Plan: The patient was doing poorly yesterday so I added intravenous corticosteroids. The patient does have normal pulmonary function testing at baseline. Therefore , she does not appear to have COPD but very well could have underlying asthma. She denied any allergic triggers. I would also continue antibiotics for bronchitis. (2) Morbid obesity Is this a current diagnosis for this admission?: Yes Plan: She is currently following a 1500 kcal diet. I have instructed her to decrease her caloric intake to 1200 kcal since she is very inactive. (3) Obstructive sleep apnea Is this a current diagnosis for this admission?: Yes Plan: The patient is currently on BiPAP while she is here. She feels that this is beneficial. She is working on getting insurance. She may need readjustment of her CPAP machine particularly if she has gained weight since she was given a CPAP machine. (4) Diabetes Is this a current diagnosis for this admission?: Yes Plan: Continue sliding-scale insulin. - Time Time Spent with patient: 25-34 minutes - Inpatient Certification Medical Necessity: Need Close Monitoring Due to Risk of Patient Decompensation, Need for Nebulizer Therapy and Monitoring of Response, Need for IV Antibiotics
[2017-05-05] MEDS ORDERED: DOCUSATE SODIUM 100 MG CAPSULE PO PRN (12:59)
--- NOTE | 2017-05-05 12:59 | Progress Note ---
Provider Note Provider Note: The patient's TSH is low. I have ordered a T3 and T4 for the morning. Further evaluation may be required.
[2017-05-05 13:54] LABS: ANION GAP 15 (5-19); BLOOD UREA NITROGEN 19 mg/dL (7-20); CALCIUM 10.4 mg/dL (8.4-10.2); CARBON DIOXIDE 26 mmol/L (22-30); CHLORIDE 103 mmol/L (98-107); CREATININE RESULT 0.69 mg/dL (0.52-1.25); GLUCOSE 162 mg/dL (75-110); MAGNESIUM 2.3 mg/dL (1.6-2.3); POTASSIUM 4.6 mmol/L (3.6-5.0); SODIUM 143.6 mmol/L (137-145)
--- NOTE | 2017-05-05 18:06 | Progress Note ---
Provider Note Provider Note: When I rounded on the patient this afternoon she seemed dramatically better. She states that she is feeling better. She was able to ambulate 3 laps around the unit. We again discussed the possibility of asthma. In contrast which he told me this morning she states that she is allergic to cats and dogs. She has been skin tested. She also lives with 2 smokers and she thinks that this could be triggering her breathing problems. In addition, the patient was placed on diltiazem upon admission for tachycardia. The tachycardia was likely in response to her respiratory distress. Due to bradycardia I did stop the diltiazem. She came into the hospital on metoprolol, but, I would not discharge her on metoprolol as this is not a very cardiac selective beta- josue and could be aggravating her asthma. She should be on an alternate agent for her hypertension. TSH was very low today. T3 and T4 pending for tomorrow.
[2017-05-05] MEDS: METFORMIN HCL 500 MG TABLET PO SCH (18:22)
[2017-05-05] MEDS: ATORVASTATIN CALCIUM 20 MG TABLET PO SCH (21:44)
[2017-05-05] MEDS: BUDESONIDE/FORMOTEROL 160-4.5 MCG 60 PUFF/6 GM MDI IH SCH (21:45)
[2017-05-06] MEDS: IPRATROPIUM/ALBUTEROL 0.5-2.5 MG/3 ML AMPUL NEB SCH ×4 (02:10→19:50)
[2017-05-06 05:24] LABS: FREE T3 2.72 pg/mL (2.77-5.27)
[2017-05-06] MEDS: METHYLPREDNISOLONE INJ 40 MG/1 ML SDV IV SCH ×3 (05:49→21:48)
[2017-05-06] MEDS: HEPARIN SOD (PORCINE) 5,000 UNIT/ML 1 ML SYRINGE SUBCUT SCH ×3 (05:49→21:48)
[2017-05-06] MEDS ORDERED: FUROSEMIDE 40 MG TABLET PO SCH (08:00)
[2017-05-06] MEDS: LISINOPRIL 10 MG TABLET PO SCH (09:15)
[2017-05-06] MEDS: GUAIFENESIN 600 MG TABLET.SA PO SCH ×2 (09:15→21:42)
[2017-05-06] MEDS: METFORMIN HCL 500 MG TABLET PO SCH ×2 (09:16→17:27)
[2017-05-06] MEDS: CEFTRIAXONE 1 GM/D5W RTU 1 GM/50 ML RTUPB IV SCH (09:18)
[2017-05-06] MEDS: FLUTICASONE NASAL SPRAY 50 MCG/SPRY 120 SPRAY/16 GM NASL SCH ×2 (09:35→21:43)
[2017-05-06] MEDS: BUDESONIDE/FORMOTEROL 160-4.5 MCG 60 PUFF/6 GM MDI IH SCH ×2 (09:36→21:43)
[2017-05-06] MEDS: TIOTROPIUM BROMIDE IH SCH (09:37)
[2017-05-06] MEDS ORDERED: LEVOTHYROXINE SODIUM 0.025 MG TABLET PO SCH (10:00)
[2017-05-06] MEDS ORDERED: (PENDING PHARMACY ID) (Tiotropium Bromide [Spiriva Respimat] 2 PUFF) IH SCH (10:00)
[2017-05-06] MEDS: INSULIN LISPRO 100 UNIT/ML 3 ML VIAL SUBCUT PRN (11:55)
[2017-05-06] MEDS: AZITHROMYCIN 500 MG in DEXTROSE 5%-WATER 250 ML IV SCH (12:02)
[2017-05-06 13:23] LABS: ANION GAP 14 (5-19); BLOOD UREA NITROGEN 24 mg/dL (7-20); CALCIUM 10.3 mg/dL (8.4-10.2); CARBON DIOXIDE 25 mmol/L (22-30); CHLORIDE 104 mmol/L (98-107); CREATININE RESULT 0.68 mg/dL (0.52-1.25); GLUCOSE 158 mg/dL (75-110); MAGNESIUM 2.3 mg/dL (1.6-2.3); POTASSIUM 4.6 mmol/L (3.6-5.0); SODIUM 143.1 mmol/L (137-145)
--- NOTE | 2017-05-06 19:08 | PDOC PROGRESS REPORT ---
Subjective Progress Note for:: 05/06/17 Subjective:: Patient is lying in bed in no acute distress. Patient states that she is still having some shortness of breath. Patient is also complaining of constipation. Explained to patient that her thyroid is low and she will need replacement for hypothyroidism. Physical Exam Vital Signs: Temp Pulse Resp BP Pulse Ox 97.3 F 62 21 H 136/68 H 98 05/06/17 02:00 05/06/17 14:00 05/06/17 13:24 05/06/17 02:00 05/06/17 13:24 Intake & Output 05/05/17 05/06/17 05/07/17 06:59 06:59 06:59 Intake Total 2080 2210 1260 Output Total 1950 2100 1100 Balance 130 110 160 Weight 141.5 kg 141.5 kg General appearance: PRESENT: morbidly obese Head exam: PRESENT: normocephalic Eye exam: PRESENT: EOMI Neck exam: PRESENT: full ROM Respiratory exam: PRESENT: clear to auscultation otilia, decreased breath sounds, unlabored Cardiovascular exam: PRESENT: RRR GI/Abdominal exam: PRESENT: distended, normal bowel sounds Rectal exam: PRESENT: deferred Musculoskeletal exam: PRESENT: full ROM Neurological exam: PRESENT: CN II-XII grossly intact Psychiatric exam: PRESENT: normal mood Skin exam: PRESENT: warm Results Laboratory Results: 05/05/17 04:27 05/06/17 04:26 05/06/17 05/06/17 04:26 04:26 Sodium 143.1 Potassium 4.6 Chloride 104 Carbon Dioxide 25 Anion Gap 14 BUN 24 H Creatinine 0.68 Est GFR ( Amer) > 60 Est GFR (Non-Af Amer) > 60 Glucose 158 H Calcium 10.3 H Magnesium 2.3 Free T4 0.75 L Free T3 pg/mL 2.72 L Impressions: Chest X-Ray 05/03/17 22:23 IMPRESSION: NO SIGNIFICANT RADIOGRAPHIC FINDING IN THE CHEST. Assessment & Plan - Diagnosis (1) Asthma with exacerbation Is this a current diagnosis for this admission?: Yes Plan: She is on corticosteroids IV. Patient had a normal PFTs so this is more consistent with asthma. Patient is being continued on antibiotics and nebs. Patient still complains of being short of breath with exertion. Patient did have a cardiac echo done in August of last year which showed an EF of 70% with grade 1 diastolic dysfunction. (2) Diabetes Qualifiers: Diabetes mellitus type: type 2 Is this a current diagnosis for this admission?: Yes Plan: [place] sliding scale insulin (3) Morbid obesity Is this a current diagnosis for this admission?: Yes Plan: Patient counseled on activity and diet. However patient inability to lose weight may be due to her hypothyroidism for which she has been started on levothyroxine on this admission. (4) Obstructive sleep apnea Is this a current diagnosis for this admission?: Yes Plan: On BiPAP however she does use CPAP at home. (5) Constipation Is this a current diagnosis for this admission?: Yes Plan: Patient last had a bowel movement on May 02 her constipation may be due to her hypothyroidism. (6) Diastolic heart failure Qualifiers: Heart failure chronicity: chronic Qualified Code(s): I50.32 - Chronic diastolic (congestive) heart failure Is this a current diagnosis for this admission?: Yes Plan: She has a history of grade 1 diastolic dysfunction this may be contributing to her respiratory status. We will switch her Lasix to 40 mg IV twice daily. - Time Time Spent with patient: 15-24 minutes Anticipated discharge: Home Within: within 48 hours
[2017-05-06] MEDS ORDERED: SORBITOL 70% SOLUTION 30 ML UDC PO ONE (19:30)
[2017-05-06] MEDS ORDERED: BISACODYL 5 MG TABEC PO ONE (19:30)
[2017-05-06] MEDS: ATORVASTATIN CALCIUM 20 MG TABLET PO SCH (21:42)
[2017-05-06] MEDS: FUROSEMIDE INJ/PF 40 MG/4 ML SDV IV SCH (21:48)
[2017-05-07] MEDS: IPRATROPIUM/ALBUTEROL 0.5-2.5 MG/3 ML AMPUL NEB SCH ×4 (02:03→19:52)
[2017-05-07] MEDS: METHYLPREDNISOLONE INJ 40 MG/1 ML SDV IV SCH ×3 (05:18→22:44)
[2017-05-07] MEDS: LEVOTHYROXINE SODIUM 0.025 MG TABLET PO SCH (05:18)
[2017-05-07] MEDS: HEPARIN SOD (PORCINE) 5,000 UNIT/ML 1 ML SYRINGE SUBCUT SCH ×3 (05:18→22:45)
[2017-05-07] MEDS: METFORMIN HCL 500 MG TABLET PO SCH ×2 (09:58→17:16)
[2017-05-07] MEDS: GUAIFENESIN 600 MG TABLET.SA PO SCH ×2 (09:58→22:44)
[2017-05-07] MEDS: LISINOPRIL 10 MG TABLET PO SCH (09:59)
[2017-05-07] MEDS: POTASSIUM CHLORIDE 20 MEQ/15 ML UDCUP PO SCH (10:00)
[2017-05-07] MEDS: AZITHROMYCIN 250 MG TABLET PO SCH (10:00)
[2017-05-07] MEDS: FLUTICASONE NASAL SPRAY 50 MCG/SPRY 120 SPRAY/16 GM NASL SCH ×2 (10:02→22:44)
[2017-05-07] MEDS: TIOTROPIUM BROMIDE IH SCH (10:03)
[2017-05-07] MEDS: BUDESONIDE/FORMOTEROL 160-4.5 MCG 60 PUFF/6 GM MDI IH SCH ×2 (10:03→22:44)
[2017-05-07] MEDS: FUROSEMIDE INJ/PF 40 MG/4 ML SDV IV SCH ×2 (10:05→22:44)
[2017-05-07] MEDS: CEFTRIAXONE 1 GM/D5W RTU 1 GM/50 ML RTUPB IV SCH (10:05)
[2017-05-07 13:52] LABS: ANION GAP 14 (5-19); BLOOD UREA NITROGEN 30 mg/dL (7-20); CALCIUM 10.5 mg/dL (8.4-10.2); CARBON DIOXIDE 28 mmol/L (22-30); CHLORIDE 100 mmol/L (98-107); CREATININE RESULT 0.78 mg/dL (0.52-1.25); GLUCOSE 91 mg/dL (75-110); MAGNESIUM 2.3 mg/dL (1.6-2.3); POTASSIUM 4.4 mmol/L (3.6-5.0); SODIUM 142.4 mmol/L (137-145)
[2017-05-07] MEDS ORDERED: MAGNESIUM HYDROXIDE SUSP 30 ML UDCUP PO PRN (15:02)
--- NOTE | 2017-05-07 15:05 | PDOC PROGRESS REPORT ---
Subjective Progress Note for:: 05/07/17 Subjective:: She is sitting up in recliner. Daughter at bedside. Patient states she walked around the hallway several times. He states that her legs no longer hurt. She still becomes winded after exerting herself. Physical Exam Vital Signs: Temp Pulse Resp BP Pulse Ox 97.9 F 66 18 125/63 98 05/07/17 12:30 05/07/17 13:55 05/07/17 13:55 05/07/17 12:30 05/07/17 13:55 Intake & Output 05/06/17 05/07/17 05/08/17 06:59 06:59 06:59 Intake Total 2210 0 Output Total 2099 2009 Balance 110 260 Weight 141.5 kg 141.5 kg General appearance: PRESENT: morbidly obese Head exam: PRESENT: normocephalic Respiratory exam: PRESENT: clear to auscultation otilia, prolonged expiratory phas , unlabored Cardiovascular exam: PRESENT: RRR GI/Abdominal exam: PRESENT: normal bowel sounds, soft, tenderness Rectal exam: PRESENT: deferred Extremities exam: PRESENT: full ROM, pedal edema Musculoskeletal exam: PRESENT: normal inspection Neurological exam: PRESENT: alert, awake, oriented to person, oriented to place , oriented to time, CN II-XII grossly intact Psychiatric exam: PRESENT: normal mood Skin exam: PRESENT: warm Results Laboratory Results: 05/05/17 04:27 05/07/17 13:14 05/07/17 13:14 Sodium 142.4 Potassium 4.4 Chloride 100 Carbon Dioxide 28 Anion Gap 14 BUN 30 H Creatinine 0.78 Est GFR ( Amer) > 60 Est GFR (Non-Af Amer) > 60 Glucose 91 Calcium 10.5 H Magnesium 2.3 Impressions: Chest X-Ray 05/03/17 22:23 IMPRESSION: NO SIGNIFICANT RADIOGRAPHIC FINDING IN THE CHEST. Assessment & Plan - Diagnosis (1) Asthma with exacerbation Is this a current diagnosis for this admission?: Yes Plan: She is on corticosteroids IV. Patient had a normal PFTs so this is more consistent with asthma. Patient is being continued on antibiotics and nebs. Patient still complains of being short of breath with exertion however this may be partly due to her excessive weight. Patient did have a cardiac echo done in August of last year which showed an EF of 70% with grade 1 diastolic dysfunction-patient is stable from this stand point. (2) Diabetes Qualifiers: Diabetes mellitus type: type 2 Is this a current diagnosis for this admission?: Yes Plan: Well controlled on sliding scale. (3) Morbid obesity Is this a current diagnosis for this admission?: Yes Plan: Patient counseled on activity and diet (decreased caloric intake). However patient inability to lose weight may be due to her hypothyroidism. Continue synthyroid. (4) Obstructive sleep apnea Is this a current diagnosis for this admission?: Yes Plan: On BiPAP in the hospital; however she does use CPAP at home. (5) Constipation Is this a current diagnosis for this admission?: Yes Plan: Will give MOM. This could be partly due to her hypothyroidism. (6) Diastolic heart failure Qualifiers: Heart failure chronicity: chronic Qualified Code(s): I50.32 - Chronic diastolic (congestive) heart failure Is this a current diagnosis for this admission?: Yes Plan: She has a history of grade 1 diastolic dysfunction this may be contributing to her respiratory status however patient's BNP was not elevated. Will continue IV lasix. (7) Hypothyroid Qualifiers: Hypothyroidism type: acquired Qualified Code(s): E03.9 - Hypothyroidism, unspecified Is this a current diagnosis for this admission?: Yes Plan: Patient was started on levothyroxine during this hospitalization. - Time Time Spent with patient: 15-24 minutes Anticipated discharge: Home - Patient will need to be transitioned to po steroids and lasix. Within: within 24 hours - Plan Summary Plan Summary: Patient will need to be transitioned to po steroids and lasix.
[2017-05-07] MEDS: ATORVASTATIN CALCIUM 20 MG TABLET PO SCH (22:44)
[2017-05-08] MEDS: IPRATROPIUM/ALBUTEROL 0.5-2.5 MG/3 ML AMPUL NEB SCH ×4 (02:27→19:50)
[2017-05-08] MEDS: HEPARIN SOD (PORCINE) 5,000 UNIT/ML 1 ML SYRINGE SUBCUT SCH ×3 (06:07→21:21)
[2017-05-08] MEDS: LEVOTHYROXINE SODIUM 0.025 MG TABLET PO SCH (06:07)
[2017-05-08] MEDS: METHYLPREDNISOLONE INJ 40 MG/1 ML SDV IV SCH ×3 (06:07→21:15)
[2017-05-08] MEDS: FUROSEMIDE INJ/PF 40 MG/4 ML SDV IV SCH (10:50)
[2017-05-08] MEDS: CEFTRIAXONE 1 GM/D5W RTU 1 GM/50 ML RTUPB IV SCH (10:50)
[2017-05-08] MEDS: AZITHROMYCIN 250 MG TABLET PO SCH (10:51)
[2017-05-08] MEDS: LISINOPRIL 10 MG TABLET PO SCH (10:51)
[2017-05-08] MEDS: GUAIFENESIN 600 MG TABLET.SA PO SCH ×2 (10:51→21:14)
[2017-05-08] MEDS: TIOTROPIUM BROMIDE IH SCH (10:52)
[2017-05-08] MEDS: METFORMIN HCL 500 MG TABLET PO SCH ×2 (10:52→17:46)
[2017-05-08] MEDS: FLUTICASONE NASAL SPRAY 50 MCG/SPRY 120 SPRAY/16 GM NASL SCH ×2 (10:52→21:22)
[2017-05-08] MEDS: BUDESONIDE/FORMOTEROL 160-4.5 MCG 60 PUFF/6 GM MDI IH SCH (10:53)
[2017-05-08] MEDS: POTASSIUM CHLORIDE 20 MEQ/15 ML UDCUP PO SCH (10:53)
[2017-05-08] MEDS: INSULIN LISPRO 100 UNIT/ML 3 ML VIAL SUBCUT PRN (12:08)
[2017-05-08] MEDS: BUDESONIDE NEB 0.5 MG/2 ML AMPUL NEB SCH (19:49)
[2017-05-08] MEDS: MONTELUKAST SODIUM 10 MG TABLET PO SCH (21:14)
[2017-05-08] MEDS: ATORVASTATIN CALCIUM 20 MG TABLET PO SCH (21:15)
--- NOTE | 2017-05-09 00:04 | PDOC PROGRESS REPORT ---
Subjective Progress Note for:: 05/08/17 Subjective:: She is sitting up in chair and doing well. Patient asking if she could actually have a shower. Patient states she is still having some wheezing and still feeling as if she is having difficult time eating out after she has exerted herself. Overall she states she is feeling better. Physical Exam Vital Signs: Temp Pulse Resp BP Pulse Ox 97.3 F 62 21 H 150/66 H 98 05/08/17 20:00 05/08/17 20:00 05/08/17 21:20 05/08/17 20:00 05/08/17 21:20 Intake & Output 05/07/17 05/08/17 05/09/17 06:59 06:59 06:59 Intake Total 2270 1100 1670 Output Total 2010 700 Balance 962 819 7567 Weight 141.5 kg 142.3 kg General appearance: PRESENT: no acute distress, cooperative, morbidly obese Head exam: PRESENT: normocephalic Eye exam: PRESENT: EOMI Respiratory exam: PRESENT: prolonged expiratory phas, unlabored, wheezes. ABSENT: accessory muscle use Cardiovascular exam: PRESENT: RRR GI/Abdominal exam: PRESENT: normal bowel sounds, soft. ABSENT: tenderness Rectal exam: PRESENT: deferred Musculoskeletal exam: PRESENT: ambulatory Neurological exam: PRESENT: alert, awake, oriented to person, oriented to place , oriented to time, CN II-XII grossly intact Psychiatric exam: PRESENT: normal mood Results Laboratory Results: 05/05/17 04:27 05/07/17 13:14 Impressions: Chest X-Ray 05/03/17 22:23 IMPRESSION: NO SIGNIFICANT RADIOGRAPHIC FINDING IN THE CHEST. Assessment & Plan - Diagnosis (1) Asthma with exacerbation Qualifiers: Asthma severity: unspecified severity Qualified Code(s): J45.901 - Unspecified asthma with (acute) exacerbation Is this a current diagnosis for this admission?: Yes Plan: She is on corticosteroids IV. Patient had a normal PFTs so this is more consistent with asthma. Patient is being continued on antibiotics, pulmicort and nebs. Patient still complains of being short of breath with exertion however this may be partly due to her excessive weight. Patient did have a cardiac echo done in August of last year which showed an EF of 70% with grade 1 diastolic dysfunction-patient is stable from this stand point. (2) Diabetes Qualifiers: Diabetes mellitus type: type 2 Is this a current diagnosis for this admission?: Yes Plan: Well controlled on sliding scale and metformin. (3) Morbid obesity Is this a current diagnosis for this admission?: Yes Plan: Patient counseled on activity and diet (decreased caloric intake). However patient inability to lose weight may be due to her hypothyroidism. Continue synthyroid. Patient requesting to speak to the architectural administrative assistant. (4) Obstructive sleep apnea Is this a current diagnosis for this admission?: Yes Plan: On BiPAP in the hospital; however she does use CPAP at home. Stable. (5) Constipation Is this a current diagnosis for this admission?: Yes Plan: Will give MOM. This could be partly due to her hypothyroidism. (6) Diastolic heart failure Qualifiers: Heart failure chronicity: chronic Qualified Code(s): I50.32 - Chronic diastolic (congestive) heart failure Is this a current diagnosis for this admission?: Yes Plan: She has a history of grade 1 diastolic dysfunction this may be contributing to her respiratory status however patient's BNP was not elevated. Patient switched back to oral lasix. (7) Hypothyroid Qualifiers: Hypothyroidism type: acquired Qualified Code(s): E03.9 - Hypothyroidism, unspecified Is this a current diagnosis for this admission?: Yes Plan: Patient was started on levothyroxine during this hospitalization. Patient T4 and T3 are all low. - Time Time Spent with patient: Less than 15 minutes Anticipated discharge: Home Within: within 24 hours - Patient improving. She is concerned about wheezing however she is not in distress and should be able to be discharged in a day or so.
[2017-05-09] MEDS: IPRATROPIUM/ALBUTEROL 0.5-2.5 MG/3 ML AMPUL NEB SCH ×4 (01:58→20:04)
[2017-05-09] MEDS: LEVOTHYROXINE SODIUM 0.025 MG TABLET PO SCH (05:23)
[2017-05-09] MEDS: METHYLPREDNISOLONE INJ 40 MG/1 ML SDV IV SCH (05:23)
[2017-05-09] MEDS: HEPARIN SOD (PORCINE) 5,000 UNIT/ML 1 ML SYRINGE SUBCUT SCH ×3 (05:24→22:24)
[2017-05-09] MEDS: BUDESONIDE NEB 0.5 MG/2 ML AMPUL NEB SCH ×2 (07:51→20:04)
[2017-05-09] MEDS: FLUTICASONE NASAL SPRAY 50 MCG/SPRY 120 SPRAY/16 GM NASL SCH ×2 (10:57→22:56)
[2017-05-09] MEDS: TIOTROPIUM BROMIDE IH SCH (10:57)
[2017-05-09] MEDS: POTASSIUM CHLORIDE 20 MEQ/15 ML UDCUP PO SCH (10:58)
[2017-05-09] MEDS: CEFTRIAXONE 1 GM/D5W RTU 1 GM/50 ML RTUPB IV SCH (10:58)
[2017-05-09] MEDS: AZITHROMYCIN 250 MG TABLET PO SCH (10:59)
[2017-05-09] MEDS: GUAIFENESIN 600 MG TABLET.SA PO SCH ×2 (10:59→22:23)
[2017-05-09] MEDS: METFORMIN HCL 500 MG TABLET PO SCH ×2 (10:59→17:54)
[2017-05-09] MEDS: LISINOPRIL 10 MG TABLET PO SCH (11:00)
--- NOTE | 2017-05-09 12:39 | PDOC PROGRESS REPORT ---
Subjective Progress Note for:: 05/09/17 Subjective:: This is a follow-up visit for acute asthma exacerbation. The patient states that overall she feels better. She states that she has been ambulating the halls and feels slightly short of breath with ambulating and she definitely notices that her heart rate increases. We discussed in detail her medical history. She notes that she has a history of [place] back in 2013. She thinks she has a history of diastolic congestive heart failure and questions if this is the reason why she has lower extremity swelling. She states she is been on Lasix for over a year and has seen little difference. We also discussed her thyroid status and her new medication of Synthroid. The patient denies any active chest pain or shortness of breath at rest. She is concerned and convinced that she likely has COPD as opposed to simply asthma and states that she had been a smoker for 28 years. Physical Exam Vital Signs: Temp Pulse Resp BP Pulse Ox 98.1 F 62 20 138/69 H 99 05/09/17 11:52 05/09/17 11:52 05/09/17 11:52 05/09/17 11:52 05/09/17 11:52 Intake & Output 05/08/17 05/09/17 05/10/17 06:59 06:59 06:59 Intake Total 1100 2070 Output Total 700 850 Balance 400 1220 Weight 142.3 kg 143.2 kg GENERAL: This is a well-developed well-nourished morbidly obese female resting in her recliner currently in no acute distress. HEART: Regular rate and rhythm. 1/6 systolic ejection murmur. No rubs or gallops. LUNGS: Coarse breath sounds bilaterally with equal rise and fall of the chest. ABDOMEN: Soft, nontender, nondistended with normoactive bowel sounds EXTREMETIES: No clubbing, cyanosis. 2+ pitting edema. 1+ peripheral pulses bilaterally. NEURO: Awake, alert and oriented 3. Cranial nerves II through XII are grossly intact. Results Laboratory Results: 05/05/17 04:27 05/07/17 13:14 05/04/17 05:11 Blood Blood Culture - Final NO GROWTH IN 5 DAYS Impressions: Chest X-Ray 05/03/17 22:23 IMPRESSION: NO SIGNIFICANT RADIOGRAPHIC FINDING IN THE CHEST. Assessment & Plan - Diagnosis (1) Asthma with exacerbation Qualifiers: Asthma severity: unspecified severity Qualified Code(s): J45.901 - Unspecified asthma with (acute) exacerbation Is this a current diagnosis for this admission?: Yes Plan: The patient is much improved as compared to notes previous in the chart. She still has coarse breath sounds bilaterally. She is currently on Solu-Medrol 40 mg every 8 hours. We will reduce this down to every 12 hours today. We will plan on changing her to prednisone p.o. in the morning. I have encouraged the patient to follow with her outpatient physician. When she is over this respiratory illness she can consider repeat PFTs and reevaluation by outpatient pulmonology. She did have the benefit of seeing Dr. Kulkarni here at the beginning of her stay (she is pulmonary critical care). Dr. Kulkarni seem to feel that this was mostly asthma since her PFTs were normal. The patient is certainly welcome to a second opinion. (2) Diabetes Qualifiers: Diabetes mellitus type: type 2 Diabetes mellitus complication status: without complication Diabetes mellitus termite control representative insulin use: without termite control representative use Qualified Code(s): E11.9 - Type 2 diabetes mellitus without complications Is this a current diagnosis for this admission?: Yes Plan: Continue metformin. Continue ADA diet. Continue sliding scale insulin. Blood sugars seem to be under reasonable control. (3) Diastolic heart failure Qualifiers: Heart failure chronicity: chronic Qualified Code(s): I50.32 - Chronic diastolic (congestive) heart failure Is this a current diagnosis for this admission?: Yes Plan: The patient is not in acute exacerbation of her heart failure. Continue lisinopril and atorvastatin. Last echo was done in August 2016. She had an EF of 70% at that time with a grade 1 diastolic dysfunction. The views on the study were difficult secondary to body habitus. The patient is at Lasix 40 mg every morning at home we will restart this here. (4) Hypothyroid Qualifiers: Hypothyroidism type: acquired Qualified Code(s): E03.9 - Hypothyroidism, unspecified Is this a current diagnosis for this admission?: Yes Plan: This is a new diagnosis. Continue current dose of Synthroid. Follow-up for repeat thyroid function tests in 3 months as an outpatient. (5) Morbid obesity Is this a current diagnosis for this admission?: Yes Plan: Weight loss through dietary changes and exercise. Most recently the patient states that she placed herself on a 1500-calorie diet. Her efforts are recognized; however, patient likely needs to be on a 1200-calorie a day diet especially since she is largely sedentary. (6) Obstructive sleep apnea Is this a current diagnosis for this admission?: Yes Plan: Continue nightly bilevel Pap. - Time Time Spent with patient: 25-34 minutes Within: within 24 hours - Inpatient Certification Medical Necessity: Need Close Monitoring Due to Risk of Patient Decompensation
[2017-05-09] MEDS ORDERED: METHYLPREDNISOLONE INJ 40 MG/1 ML SDV IV SCH (22:00)
[2017-05-09] MEDS: ATORVASTATIN CALCIUM 20 MG TABLET PO SCH (22:23)
[2017-05-09] MEDS: MONTELUKAST SODIUM 10 MG TABLET PO SCH (22:23)
[2017-05-10] MEDS: IPRATROPIUM/ALBUTEROL 0.5-2.5 MG/3 ML AMPUL NEB SCH ×4 (02:44→19:37)
[2017-05-10] MEDS: LEVOTHYROXINE SODIUM 0.025 MG TABLET PO SCH (06:04)
[2017-05-10] MEDS: HEPARIN SOD (PORCINE) 5,000 UNIT/ML 1 ML SYRINGE SUBCUT SCH ×3 (06:04→22:21)
[2017-05-10] MEDS: BUDESONIDE NEB 0.5 MG/2 ML AMPUL NEB SCH ×2 (08:49→19:37)
[2017-05-10] MEDS ORDERED: ERGOCALCIFEROL (VITAMIN D2) 50000 UNIT (1.25 MG) CAPSULE PO SCH (10:00)
[2017-05-10] MEDS: AZITHROMYCIN 250 MG TABLET PO SCH (10:05)
[2017-05-10] MEDS: GUAIFENESIN 600 MG TABLET.SA PO SCH ×2 (10:06→22:16)
[2017-05-10] MEDS: PREDNISONE 20 MG TABLET PO SCH (10:06)
[2017-05-10] MEDS: LISINOPRIL 10 MG TABLET PO SCH (10:07)
[2017-05-10] MEDS: METFORMIN HCL 500 MG TABLET PO SCH ×2 (10:07→17:54)
[2017-05-10] MEDS: FUROSEMIDE 40 MG TABLET PO SCH (10:07)
[2017-05-10] MEDS: CEFTRIAXONE 1 GM/D5W RTU 1 GM/50 ML RTUPB IV SCH (10:08)
[2017-05-10] MEDS: POTASSIUM CHLORIDE 20 MEQ/15 ML UDCUP PO SCH (10:08)
[2017-05-10] MEDS: FLUTICASONE NASAL SPRAY 50 MCG/SPRY 120 SPRAY/16 GM NASL SCH ×2 (10:08→22:15)
[2017-05-10] MEDS: TIOTROPIUM BROMIDE IH SCH (10:09)
--- NOTE | 2017-05-10 17:36 | PDOC PROGRESS REPORT ---
Subjective Progress Note for:: 05/10/17 Subjective:: This is a follow-up visit for acute asthma exacerbation. The patient states that overall she feels better. She states that she has been ambulating the halls and feels slightly short of breath with ambulating and she definitely notices that her heart rate increases. Mild pulmonary hypertension her echocardiogram shows some. This was discussed with Dr. De Leon who read the cardiac echo and recommended follow-up CT of the chest. She also now has grade 2 diastolic dysfunction. The patient feels that the swelling in her legs have gone down. Physical Exam Vital Signs: Temp Pulse Resp BP Pulse Ox 97.7 F 62 20 131/65 H 97 05/10/17 11:41 05/10/17 14:19 05/10/17 14:19 05/10/17 11:41 05/10/17 14:19 Intake & Output 05/09/17 05/10/17 05/11/17 06:59 06:59 06:59 Intake Total 2070 2830 Output Total 850 400 Balance 1220 2430 Weight 143.2 kg 143.3 kg GENERAL: This is a well-developed well-nourished morbidly obese female resting in her recliner currently in no acute distress. HEART: Regular rate and rhythm. 1/6 systolic ejection murmur. No rubs or gallops. LUNGS: Coarse breath sounds bilaterally with equal rise and fall of the chest. ABDOMEN: Soft, nontender, nondistended with normoactive bowel sounds EXTREMETIES: No clubbing, cyanosis. 2+ pitting edema. 1+ peripheral pulses bilaterally. NEURO: Awake, alert and oriented 3. Cranial nerves II through XII are grossly intact. Results Laboratory Results: 05/05/17 04:27 05/07/17 13:14 Impressions: Chest X-Ray 05/03/17 22:23 IMPRESSION: NO SIGNIFICANT RADIOGRAPHIC FINDING IN THE CHEST. Assessment & Plan - Diagnosis (1) Asthma with exacerbation Qualifiers: Asthma severity: unspecified severity Qualified Code(s): J45.901 - Unspecified asthma with (acute) exacerbation Is this a current diagnosis for this admission?: Yes Plan: The patient is much improved as compared to notes previous in the chart. She still has coarse breath sounds bilaterally. Continue prednisone. Will obtain CTA of the chest. (2) Diabetes Qualifiers: Diabetes mellitus type: type 2 Diabetes mellitus complication status: without complication Diabetes mellitus exterminator helper termite insulin use: without penitentiary use Qualified Code(s): E11.9 - Type 2 diabetes mellitus without complications Is this a current diagnosis for this admission?: Yes Plan: Continue metformin. Continue ADA diet. Continue sliding scale insulin. Blood sugars seem to be under reasonable control. (3) Diastolic heart failure Qualifiers: Heart failure chronicity: chronic Qualified Code(s): I50.32 - Chronic diastolic (congestive) heart failure Is this a current diagnosis for this admission?: Yes Plan: The patient is not in acute exacerbation of her heart failure. Continue lisinopril and atorvastatin. Last echo was done in August 2016. Echocardiogram done on this visit shows grade 2 diastolic dysfunction with mild pulmonary hypertension. (4) Hypothyroid Qualifiers: Hypothyroidism type: acquired Qualified Code(s): E03.9 - Hypothyroidism, unspecified Is this a current diagnosis for this admission?: Yes Plan: This is a new diagnosis. Continue current dose of Synthroid. Follow-up for repeat thyroid function tests in 3 months as an outpatient. (5) Morbid obesity Is this a current diagnosis for this admission?: Yes Plan: Weight loss through dietary changes and exercise. Most recently the patient states that she placed herself on a 1500-calorie diet. Her efforts are recognized; however, patient likely needs to be on a 1200-calorie a day diet especially since she is largely sedentary. (6) Obstructive sleep apnea Is this a current diagnosis for this admission?: Yes Plan: Continue nightly bilevel Pap. - Time Time Spent with patient: 15-24 minutes
[2017-05-10] MEDS: ATORVASTATIN CALCIUM 20 MG TABLET PO SCH (22:15)
[2017-05-10] MEDS: MONTELUKAST SODIUM 10 MG TABLET PO SCH (22:16)
--- NOTE | 2017-05-11 00:59 | RADIOLOGY REPORT (SQ) ---
EXAM DESCRIPTION: CTA CHEST COMPLETED DATE/TIME: 05/10/2017 11:02 pm REASON FOR STUDY: snyder COMPARISON: Chest x-ray 05/03/2017. CT chest 05/29/2012. TECHNIQUE: CT scan of the chest performed using helical scanning technique with dynamic intravenous contrast injection. Images reviewed with lung, soft tissue and bone windows. Reconstructed coronal and sagittal MPR images reviewed. Additional 3 dimensional post-processing performed to develop Maximal Intensity Projection images (MA P). All images stored on PACS. All CT scanners at this facility use dose modulation, iterative reconstruction, and/or weight based d osing when appropriate to reduce radiation dose to as low as reasonably achievable (ALARA). [facility]: Dose Right [facility]: CareDose [facility]: Dose Right [facility]: Teradose 4D [facility]: Metconnex CONTRAST TYPE AND DOSE: contrast/concentration: Isovue 300.00 mg/ml; Total Contrast Delivered: 161.0 ml; Total Saline Delivered: 220.0 ml The 1st time the study was performed the intravenous contrast infiltrated. The study was repeated. Contrast bolus optimized for the pulmonary arteries. Not diagnostic for the aorta. RENAL FUNCTION: Creatinine 0.78 RADIATION DOSE: Up-to-date CT equipment and radiation dose reduction techniques were employed. CTDIv ol: 33.1 - 39.9 mGy. DLP: 1529 mGy-cm. . LIMITATIONS: None. FINDINGS: LUNGS AND PLEURA: No consolidation, pleural effusion or pneumothorax. AORTA AND GREAT VESSELS: No aneurysm. Contrast bolus not optimized for the aorta. HEART: Mild cardiomegaly. No pericardial effusion. No significant coronary artery calcifications. PULMONARY ARTERIES: No emboli visualized in the main pulmonary arteries or the segmental branches. HILAR AND MEDIASTINAL STRUCTURES: No identified masses or abnormal nodes. HARDWARE: There is a left-sided Port-A-Cath with the tip at the SVC. UPPER ABDOMEN: The visualized liver is enlarged and has diffuse decreased attenuation, most consisten t with fatty infiltration. The patient is status post cholecystectomy. BONES: Degenerative changes in the spine. 3D MIPS: Confirm above findings. OTHER: Soft tissue stranding and increased density in the anterior left chest wall adjacent to the le ft-sided Port-A-Cath and is soft tissue stranding with increased density in the soft tissues of the left breast. IMPRESSION: No pulmonary emboli. Mild cardiomegaly. Hepatomegaly and fatty infiltration of the liver. Soft tissue stranding and increased density in the anterior left chest wall adjacent to the left-side d Port-A-Cath extending into the soft tissues of the left breast, may represent extravasated intraven ous contrast. Please correlate with clinical exam. Followup to resolution recommended. COMMENT: Pertinent findings on the imaging study reported as a CRITICAL RESULT to Dr. Rodriguez at0 0:45 hrs on 05/11/2017. Category of Critical Result: Soft tissue stranding and increased density in the anterior left chest w all adjacent to the left-sided Port-A-Cath extending into the soft tissues of the left breast, may re present extravasated intravenous contrast. Please correlate with clinical exam. Followup to resoluti on recommended. Quality ID # [id number]: Final reports with documentation of one or more dose reduction techniques (e.g., Au tomated exposure control, adjustment of the mA and/or kV according to patient size, use of iterative reconstruction technique) TECHNICAL DOCUMENTATION: JOB ID: [id number] [place]-64 2010 [employer]- All Rights Reserved
[2017-05-11] MEDS: IPRATROPIUM/ALBUTEROL 0.5-2.5 MG/3 ML AMPUL NEB SCH ×3 (02:12→13:51)
[2017-05-11] MEDS: LEVOTHYROXINE SODIUM 0.025 MG TABLET PO SCH (05:26)
[2017-05-11] MEDS: HEPARIN SOD (PORCINE) 5,000 UNIT/ML 1 ML SYRINGE SUBCUT SCH ×2 (05:31→15:10)
[2017-05-11] MEDS: BUDESONIDE NEB 0.5 MG/2 ML AMPUL NEB SCH (08:28)
[2017-05-11] MEDS: FLUTICASONE NASAL SPRAY 50 MCG/SPRY 120 SPRAY/16 GM NASL SCH (10:09)
[2017-05-11] MEDS: FUROSEMIDE 40 MG TABLET PO SCH (10:09)
[2017-05-11] MEDS: POTASSIUM CHLORIDE 20 MEQ/15 ML UDCUP PO SCH (10:09)
[2017-05-11] MEDS: LISINOPRIL 10 MG TABLET PO SCH (10:10)
[2017-05-11] MEDS: GUAIFENESIN 600 MG TABLET.SA PO SCH (10:10)
[2017-05-11] MEDS: PREDNISONE 20 MG TABLET PO SCH (10:10)
[2017-05-11] MEDS: TIOTROPIUM BROMIDE IH SCH (10:11)
--- NOTE | 2017-05-11 13:40 | PDOC DISCHARGE SUMMARY ---
General - Admit/Disc Date/PCP Admission Date/Primary Care Provider: 05/04/17 02:44 Discharge Date: 05/11/17 - Discharge Diagnosis (1) Asthma with exacerbation Is this a current diagnosis for this admission?: Yes Summary: The patient has greatly improved. Continue tapering doses of steroids. Establish care with Dr. Sandoval as an outpatient. Continue Symbicort, Singulair , Spiriva, as needed albuterol and Flonase (2) Diabetes Is this a current diagnosis for this admission?: Yes Summary: Continue home metformin. (3) Diastolic heart failure Is this a current diagnosis for this admission?: Yes Summary: Cardiac echo showed a normal EF with grade 2 diastolic dysfunction. The patient is no longer in acute exacerbation. Continue daily Lasix. (4) Hypothyroid Is this a current diagnosis for this admission?: Yes Summary: Continue Synthroid. Follow-up thyroid panel in 3 months. (5) Morbid obesity Is this a current diagnosis for this admission?: Yes Summary: Weight loss through dietary changes and exercise. (6) Obstructive sleep apnea Is this a current diagnosis for this admission?: Yes Summary: Patient wears CPAP at night. It is been years since she has had a sleep study. She should follow-up for repeat sleep study to ensure she does not need bilevel Pap at this point. She was on bilevel Pap here in the hospital. (7) Pulmonary hypertension Is this a current diagnosis for this admission?: Yes Summary: Mild pulmonary hypertension seen on cardiac echo. This was discussed with Dr. De Leon who recommended CTA of the chest. CT of the chest was done and is negative. Establish care with Dr. Sandoval as an outpatient. - Additional Information Resuscitation Status: Full Code Home Medications: Ergocalciferol (Vitamin D2) [Vitamin D] 20,000 unit PO DAILY 09/09/15 Budesonide/Formoterol Fumarate [Symbicort HFA 160-4.5 mcg Inhaler 6 gm] 2 puff IH Q12 05/04/17 Docusate Sodium [Colace 100 mg Capsule] 100 mg PO DAILYP PRN 05/04/17 Furosemide [Lasix 40 mg Tablet] 40 mg PO QAM 05/04/17 Isosorbide Mononitrate [Imdur 30 mg Tablet.er] 30 mg PO DAILY 05/04/17 Metformin HCl 500 mg PO BID 05/04/17 Tiotropium [place] [Spiriva Respimat] 2 puff IH DAILY 05/04/17 Tramadol HCl [Ultram 50 mg Tablet] 50 mg PO DAILYP PRN 05/04/17 Amlodipine Besylate [Norvasc 5 mg Tablet] 5 mg PO Q12H 05/05/17 Proventil Hfa 1 puff IH Q6HP PRN 05/07/17 Atorvastatin Calcium [Lipitor 20 mg Tablet] 20 mg PO QHS #0 tablet 05/11/17 Fluticasone Propionate [Flonase Nasal [place] 50 Mcg/[place] 16 gm] 2 spray NASL Q12 #1 spray.pump 05/11/17 Guaifenesin [Mucinex Sr 600 mg Tablet.sa] 1,200 mg PO Q12 #14 tablet.sa Levothyroxine Sodium [Synthroid 0.025 mg Tablet] 0.025 mg PO Q6AM #30 tablet 06/17 Lisinopril [Prinivil 10 mg Tablet] 20 mg PO DAILY #30 tablet 05/11/17 Montelukast Sodium [Singulair 10 mg Tablet] 10 mg PO QHS #30 tablet 05/11/17 Potassium Chloride [Kaon-Cl 20 Meq/15 ml Udcup] 20 meq PO DAILY #14 udc Prednisone [Deltasone 20 mg Tablet] 40 mg PO ASDIR PRN #15 tablet 05/11/17 History of Present Illness History of Present Illness: MAXINE DON is a 61 year old female Hospital Course Hospital Course: Patient was admitted to the hospital and put on oxygen via nasal cannula with nightly BiPAP. The patient overall did well over the course of the next several days. She was started on Solu-Medrol. She was initially followed by attending Nellie Kulkarni. Dr. Kulkarni is pulmonary critical care physician by [facility] and evaluated the patient's most recent pulmonary function tests. Her sentiment was that the patient likely had an asthma exacerbation as opposed to COPD because her PFTs were essentially normal. Patient was treated also with Symbicort and Singulair. Flonase and Robitussin were also added to her regimen. The patient tolerated this well and her breathing gradually improved. Ultimately she was able to be weaned from the oxygen and ambulate the halls. Unfortunately when ambulating the halls the patient was able to maintain her oxygen saturation but her heart rate magalie to the 120s. Echocardiogram was done which showed pulmonary hypertension that was considered to be mild as well as grade 2 diastolic dysfunction. The patient was resumed on her home dose of Lasix and this helped her to feel better. CTA of the chest was obtained to rule out any PE. This was negative. The patient did not require oxygen for several days. At this point the patient has been medically optimized and is ready for discharge with appropriate follow-up. We discussed follow-up at length for the last 3 days of her stay. I believe she will need to be seen as an outpatient. Dr. Sandoval is available here in town or Dr. Rodgers. Patient's blood pressure was controlled with lisinopril. Many of her home antihypertensives were resumed at discharge with the exception of metoprolol. This was done because her resting pulse fell to the 40s Consistently. Physical Exam Vital Signs: Temp Pulse Resp BP Pulse Ox 97.7 F 89 20 129/66 H 99 05/11/17 07:27 05/11/17 10:15 05/11/17 08:30 05/11/17 10:15 05/11/17 08:30 Intake & Output 05/10/17 05/11/17 05/12/17 06:59 06:59 06:59 Intake Total 2830 1920 Output Total 400 1550 Balance 2430 370 Weight 143.3 kg 140 kg GENERAL: This is a well-developed well-nourished morbidly obese female resting in her recliner currently in no acute distress. HEART: Regular rate and rhythm. 1/6 systolic ejection murmur. No rubs or gallops. LUNGS: Coarse breath sounds bilaterally with equal rise and fall of the chest. ABDOMEN: Soft, nontender, nondistended with normoactive bowel sounds EXTREMETIES: No clubbing, cyanosis. 2+ pitting edema. 1+ peripheral pulses bilaterally. NEURO: Awake, alert and oriented 3. Cranial nerves II through XII are grossly intact. Results Laboratory Results: 05/05/17 04:27 05/07/17 13:14 Impressions: Chest X-Ray 05/03/17 22:23 IMPRESSION: NO SIGNIFICANT RADIOGRAPHIC FINDING IN THE CHEST. Chest/Abdomen CTA 05/10/17 00:00 IMPRESSION: No pulmonary emboli. Mild cardiomegaly. Hepatomegaly and fatty infiltration of the liver. Soft tissue stranding and increased density in the anterior left chest wall adjacent to the left-sided Port-A-Cath extending into the soft tissues of the left breast, may represent extravasated intravenous contrast. Please correlate with clinical exam. Followup to resolution recommended. Qualifiers PATEINT BEING DISCHARGED WITH ANY OF THE FOLLOWING DIAGNOSIS?: No Plan Time Spent: Greater than 30 Minutes
[2017-05-11 15:24] VITALS: BP 129/66
== END 2017-05-11 15:40 | disposition home or self-care (01) | DRG 202 ==
LOC: ER 21:27 → EH 05-04 02:44 → UNDOADMIN 05-04 02:55 → 4N 05-04 04:33 → EH 05-04 04:33
PROVIDERS: ADMIT Internal Medicine; ATTEND Internal Medicine
DX: J45.901 Unspecified asthma with (acute) exacerbation (principal); I50.32 Chronic diastolic (congestive) heart failure; Z68.42 Body mass index [BMI] 45.0-49.9, adult; E11.9 Type 2 diabetes mellitus without complications; E03.9 Hypothyroidism, unspecified; E66.01 Morbid (severe) obesity due to excess calories; E78.5 Hyperlipidemia, unspecified; G47.33 Obstructive sleep apnea (adult) (pediatric); Z79.899 Other long term (current) drug therapy; Z88.1 Allergy status to other antibiotic agents; Z88.8 Allergy status to other drugs, medicaments and biological substances; I25.2 Old myocardial infarction; Z85.43 Personal history of malignant neoplasm of ovary; Z85.528 Personal history of other malignant neoplasm of kidney; Z90.49 Acquired absence of other specified parts of digestive tract; Z90.710 Acquired absence of both cervix and uterus; Z87.891 Personal history of nicotine dependence
CPT/HCPCS: 36415; 71010; 71275; 80048; 81001; 82962; 83735; 83880; 84439; 84443; 84481; 84484; 85025; 87040; 93005; 93010; 93306; 94640; 94660; 94667; 94668; 94799; 96365; 96367; 96375; 99291; J0360; J0456; J0696; J1642; J1644; J1815; J1940; J2920; J2930; J3475; J3490; J7060; J7512; J7620

== ENCOUNTER → 2017-05-29 | Outpatient (CLI) | payer OTHER ==
[2017-05-29 12:11] LABS: ALANINE AMINOTRANSFERASE 33 U/L (9-52); ALKALINE PHOSPHATASE 69 U/L (38-126); ANION GAP 11 (5-19); ASPARTATE AMINO TRANSFERASE 15 U/L (14-36); BILIRUBIN,DIRECT 0.6 mg/dL (0.0-0.4); BILIRUBIN,TOTAL 0.9 mg/dL (0.2-1.3); BLOOD UREA NITROGEN 14 mg/dL (7-20); CALCIUM 9.4 mg/dL (8.4-10.2); CARBON DIOXIDE 27 mmol/L (22-30); CHLORIDE 105 mmol/L (98-107); CREATININE RESULT 0.66 mg/dL (0.52-1.25); GLUCOSE 110 mg/dL (75-110); POTASSIUM 3.8 mmol/L (3.6-5.0); SODIUM 143.2 mmol/L (137-145); TOTAL PROTEIN 6.6 g/dL (6.3-8.2)
[2017-05-29 12:42] LABS: THYROID STIMULATING HORMONE 0.44 uIU/mL (0.47-4.68)
[2017-06-02 07:13] LABS: GLYCOMARK RESULT 23.5 ug/mL (.)
== END ==
LOC: CCC 10:26
DX: E11.8 Type 2 diabetes mellitus with unspecified complications (principal); E03.9 Hypothyroidism, unspecified
CPT/HCPCS: 36415; 80053; 84378; 84439; 84443; 84481

== ENCOUNTER → 2017-06-18 | Outpatient (CLI) | payer MEDICAID ==
--- NOTE | 2017-06-18 08:46 | WOMENS IMAGING REPORT ---
EXAM DESCRIPTION: BILAT SCREENING MAMMO W/CAD COMPLETED DATE/TIME: 06/18/2017 8:25 am REASON FOR STUDY: ROUTINE SCREENING; Z12.31 Z12.31 ENCNTR SCREEN MAMMOGRAM FOR MALIGNANT NEOPLASM O F ELIU COMPARISON: None. TECHNIQUE: Standard craniocaudal and mediolateral oblique views of each breast recorded using digita l acquisition. LIMITATIONS: None. FINDINGS: No masses, calcifications or architectural distortion. No areas of suspicion. Read with the assistance of CAD. .[facility] - R2 Cenova Version 1.3 .[facility] - R2 Cenova Version 1.3 .[facility] - R2 Cenova Version 2.4 .[facility] [place] - R2 Cenova Version 2.4 .[facility] - R2 [employer]nut Version 9.2 IMPRESSION: NORMAL MAMMOGRAM. BIRADS 1. BREAST DENSITY: b. There are scattered areas of fibroglandular density. BIRAD: 1 NEGATIVE RECOMMENDATION: ROUTINE SCREENING Please consider yearly bilateral screening tomosynthesis in June 2018 COMMENT: The patient has been notified of the results by letter per [place] requirements. Additional no tification policies are in place for contacting patient with suspicious or incomplete findings. Quality ID #[id number]: The [employer] recommends an annual screening mammogram for women aged 40 years or over. This facility utilizes a reminder system to ensure that all patients receive reminder letters, and/or direct phone calls for appointments. This includes reminders for routine scr eening mammograms, diagnostic mammograms, or other Breast Imaging Interventions when appropriate. Th is patient will be placed in the appropriate reminder system. The [employer] (ACR) has developed recommendations for screening MRI of the breast s in certain patient populations, to be used in conjunction with mammography. Breast MRI surveillanc e may be appropriate for women with more than 20% lifetime risk of developing breast cancer as deter mined by genetic testing, significant family history of the disease, or history of mantle radiation f or Hodgkins Disease. ACR Practice Guidelines 2008. TECHNICAL DOCUMENTATION: FINDING NUMBER: (1) ASSESSMENT: (1) JOB ID: [id number] [employer]- All Rights Reserved
== END ==
LOC: WI 08:12
PROVIDERS: ATTEND Physician Assistant
DX: Z12.31 Encounter for screening mammogram for malignant neoplasm of breast (principal)
CPT/HCPCS: 77067; G0202

== ENCOUNTER 2017-10-13 07:20 | Day surgery (SDC) | payer MEDICAID, OTHER ==
[~2017-10-13 07:20] MED LIST changes: -ALBUTEROL SULFATE 0.083% NEB 2.5 MG/3 ML AMPUL NEB ONE; +PROPOFOL INJ 200 MG/20 ML VIAL IV ONE
[2017-10-13 09:31] VITALS: BP 129/75
--- NOTE | 2017-10-13 12:44 | Operative Report ---
Operative Report DATE OF SURGERY: 10/13/17 Operative Report: The risks, benefits and alternatives of the procedure including risks of bleeding, perforation requiring surgery are explained to the patient in detail and informed consent is obtained. Patient was taken back to the endoscopy suite and placed in the left, lateral decubital position. Timeout was called. Propofol medications administered. A rectal examination is done which did not reveal any masses, tears or fissures. An Olympus videoscope was inserted into the patient's rectum. The scope was then carefully advanced all the way to the cecum. The cecum was identified by the usual anatomical landmarks including the ileocecal valve as well as the appendiceal office. Photodocumentation is obtained. The scope was then sequentially pulled back via the various segments of the colon including the ascending colon, hepatic flexure, transverse colon, splenic flexure, descending colon, splenic to the rectosigmoid portions of the colon. Retroflexion maneuver is performed. The risks benefits and alternatives of the procedure explained to the patient in detail and informed consent is obtained.A GIF Olympus video scope was inserted into the patient's mouth and hypopharynx, the esophagus is identified intubated and insufflated, the scope was then advanced through the esophagus stomach and duodenum ,retroflexion maneuver is done, the esophagus stomach and first and second portions of the duodenum examined PREOPERATIVE DIAGNOSIS: Abdominal pain. Change of bowel habits POSTOPERATIVE DIAGNOSIS: Gastritis status post biopsy rule out Helicobacter pylori. Hiatal hernia. Right-sided colonic inflammation status post biopsy rule out lymphocytic, microscopic, collagenous colitis. OPERATION: Colonoscopy with biopsy. EGD with biopsy SURGEON: SAMARA KELLEY ANESTHESIA: LMAC TISSUE REMOVED OR ALTERED: As noted above. COMPLICATIONS: None. ESTIMATED BLOOD LOSS: None. INTRAOPERATIVE FINDINGS: As noted above. PROCEDURE: Patient tolerated procedure well. No immediate postprocedure complications are noted. Patient discharged in good condition. Discharge date 10/13/2017. Discharge diet: Regular. Discharge activity: Regular. 2-3 week follow-up to discuss findings. Patient is instructed to call the office or proceed to the emergency room should there be any further problems or questions. We will await pathology.
== END 2017-10-13 09:35 | disposition home or self-care (01) ==
LOC: END 07:20
PROVIDERS: ATTEND Internal Medicine Gastroenterology
PROC: 0DB68ZX Excision of Stomach, Via Natural or Artificial Opening Endoscopic, Diagnostic (ICD-10-PCS; principal; 2017-10-13 09:00)
PROC: 0DBF8ZX Excision of Right Large Intestine, Via Natural or Artificial Opening Endoscopic, Diagnostic (ICD-10-PCS; 2017-10-13 09:00)
DX: K44.9 Diaphragmatic hernia without obstruction or gangrene (principal); K52.9 Noninfective gastroenteritis and colitis, unspecified; K29.50 Unspecified chronic gastritis without bleeding; I11.0 Hypertensive heart disease with heart failure; I50.9 Heart failure, unspecified; E11.9 Type 2 diabetes mellitus without complications; I27.20 Pulmonary hypertension, unspecified; E66.01 Morbid (severe) obesity due to excess calories; E03.9 Hypothyroidism, unspecified; J45.40 Moderate persistent asthma, uncomplicated; Z68.42 Body mass index [BMI] 45.0-49.9, adult; Z87.891 Personal history of nicotine dependence; I25.2 Old myocardial infarction; Z85.43 Personal history of malignant neoplasm of ovary; Z85.53 Personal history of malignant neoplasm of renal pelvis; Z85.6 Personal history of leukemia
CPT/HCPCS: 43239; 45380; 82962; 88342 ×2; 88305 ×2; J2704; 813

== ENCOUNTER → 2017-12-11 | Outpatient (CLI) | payer MEDICAID ==
--- NOTE | 2017-12-11 17:08 | RADIOLOGY REPORT (SQ) ---
EXAM DESCRIPTION: TIBIA FIBULA LEFT COMPLETED DATE/TIME: 12/11/2017 3:39 pm REASON FOR STUDY: PAIN IN LEFT LOWER LEG M79.662 PAIN IN LEFT LOWER LEG COMPARISON: None. NUMBER OF VIEWS: Two views. TECHNIQUE: Two radiographic images acquired of the left tibia and fibula to include the knee and ank le in at least one projection. LIMITATIONS: None. FINDINGS: MINERALIZATION: Normal. BONES: No acute fracture or malalignment. There is high-grade patellofemoral and medial compartment joint space narrowing with bulky bony spurr ing from osteoarthritis. Loose bodies are seen along along the posterior aspect of the knee joint in the intercondylar region. Ankle joint in the field of view is unremarkable. Prominent plantar calcaneal spur. SOFT TISSUES: No obvious swelling or foreign body. There is artifact from the patient's pant leg ove r the distal thigh OTHER: No other significant finding. IMPRESSION: No acute fracture or malalignment No soft tissue gas or radiopaque foreign body over the lower legs Advanced patellofemoral and medial compartment osteoarthritis left knee TECHNICAL DOCUMENTATION: JOB ID: [id number] [employer]- All Rights Reserved Reading location - IP/workstation name: [email or web address]
== END ==
LOC: OD 15:06
PROVIDERS: ATTEND Physician Assistant
DX: M79.662 Pain in left lower leg (principal); M17.12 Unilateral primary osteoarthritis, left knee

== ENCOUNTER → 2018-01-29 | Outpatient (CLI) | payer MEDICAID ==
--- NOTE | 2018-01-29 16:34 | RADIOLOGY REPORT (SQ) ---
EXAM DESCRIPTION: CHEST PA/LATERAL COMPLETED DATE/TIME: 01/29/2018 4:03 pm REASON FOR STUDY: Shortness of breath; Chronic obstructive pulmonary disease, unspecified COMPARISON: CT angio chest 05/10/2017 AP chest 02/12/2017 EXAM PARAMETERS: NUMBER OF VIEWS: two views TECHNIQUE: Digital Frontal and Lateral radiographic views of the chest acquired. RADIATION DOSE: NA LIMITATIONS: none FINDINGS: LUNGS AND PLEURA: No opacities, masses or pneumothorax. No pleural effusion. MEDIASTINUM AND HILAR STRUCTURES: No masses or contour abnormalities. HEART AND VASCULAR STRUCTURES: Mild cardiomegaly BONES: No acute findings. HARDWARE: Left-sided permanent central line with the tip in the superior vena cava. OTHER: No other significant finding. IMPRESSION: Mild cardiomegaly. No acute infiltrates. No pleural effusion. TECHNICAL DOCUMENTATION: JOB ID: [id number] [employer]- All Rights Reserved Reading location - IP/workstation name: [email or web address]
== END ==
LOC: RAD 15:33
PROVIDERS: ATTEND Physician Assistant Medical
DX: J44.9 Chronic obstructive pulmonary disease, unspecified (principal); R06.02 Shortness of breath
CPT/HCPCS: 71046

== ENCOUNTER → 2018-02-09 | Outpatient (CLI) | payer MEDICAID ==
--- NOTE | 2018-02-09 11:11 | RADIOLOGY REPORT (SQ) ---
EXAM DESCRIPTION: CT CHEST WITH COMPLETED DATE/TIME: 02/09/2018 10:49 am REASON FOR STUDY: PRSNL HX OF NERI NEOPLM OF LYMPHOID, HEMAPOIETIC REL TISS Z85.79 PRSNL HX OF Halle CASTAÑEDA NEOPLM OF LYMPHOID, HEMAPOIETIC RE COMPARISON: 05/10/2017 TECHNIQUE: CT scan of the chest performed using helical scanning technique with dynamic intravenous contrast injection. Images reviewed with lung, soft tissue and bone windows. Reconstructed coronal and sagittal MPR images reviewed. All images stored on PACS. All CT scanners at this facility use dose modulation, iterative reconstruction, and/or weight based d osing when appropriate to reduce radiation dose to as low as reasonably achievable (ALARA). [facility]: Dose Right [facility]: CareDose [facility]: Dose Right [facility]: Teradose 4D [facility]: [employer] CONTRAST TYPE AND DOSE: 100 mL Isovue 370- low osmolar. RENAL FUNCTION: Creatinine 0.6 RADIATION DOSE: . LIMITATIONS: None. FINDINGS: LUNGS AND PLEURA: No opacities, nodules, masses. No pneumothorax. No effusions. HILAR AND MEDIASTINAL STRUCTURES: No identified masses or abnormal nodes. HEART AND VASCULAR STRUCTURES: No aneurysm or dissection. No central pulmonary emboli. No pericardi al effusion. HARDWARE: None in the chest. UPPER ABDOMEN: See separate report of the CT of the abdomen. THYROID AND OTHER SOFT TISSUES: No masses. No adenopathy. BONES: Mid and lower thoracic spondylosis. OTHER: No other significant finding. IMPRESSION: Thoracic spondylosis. No acute findings in the chest. TECHNICAL DOCUMENTATION: JOB ID: [id number] Quality ID # [id number]: Final reports with documentation of one or more dose reduction techniques (e.g., Au tomated exposure control, adjustment of the mA and/or kV according to patient size, use of iterative reconstruction technique) 2010 [employer]- All Rights Reserved Reading location - IP/workstation name: [email or web address]
--- NOTE | 2018-02-09 11:26 | RADIOLOGY REPORT (SQ) ---
EXAM DESCRIPTION: CT ABD/PELVIS WITH IV ONLY COMPLETED DATE/TIME: 02/09/2018 10:49 am REASON FOR STUDY: PRSNL HX OF NERI NEOPLM OF LYMPHOID, HEMAPOIETIC REL TISS Z85.79 PRSNL HX OF Halle CASTAÑEDA NEOPLM OF LYMPHOID, HEMAPOIETIC RE COMPARISON: None. TECHNIQUE: CT scan of the abdomen and pelvis performed using helical scanning technique with dynamic intravenous contrast injection. No oral contrast. Images reviewed with lung, soft tissue, and bone windows. Reconstructed coronal and sagittal MPR images reviewed. Delayed images for evaluation of the urinary system also acquired. All images stored on PACS. All CT scanners at this facility use dose modulation, iterative reconstruction, and/or weight based d osing when appropriate to reduce radiation dose to as low as reasonably achievable (ALARA). [facility]: Dose Right [facility]: CareDose [facility]: Dose Right [facility]: Teradose 4D [facility]: [employer] CONTRAST TYPE AND DOSE: contrast/concentration: Isovue 370.00 mg/ml; Total Contrast Delivered: 100.0 ml; Total Saline Delivered: 72.0 ml RENAL FUNCTION: Creatinine 0.6 RADIATION DOSE: CT Rad equipment meets quality standard of care and radiation dose reduction techniq ues were employed. CTDIvol: 21.8 - 30.0 mGy. DLP: 5673 mGy-cm.. LIMITATIONS: None. FINDINGS: LOWER CHEST: See separate report of the CT of the chest. LIVER: Normal size. No masses. No dilated ducts. SPLEEN: Normal size. No focal lesions. PANCREAS: No masses. No significant calcifications. No adjacent inflammation or peripancreatic fluid collections. Pancreatic duct not dilated. GALLBLADDER: Surgical clips are present in the gallbladder fossa. ADRENAL GLANDS: No significant masses or asymmetry. RIGHT KIDNEY AND URETER: No solid masses. There is a tiny nonobstructing lower calyceal calculus. No hydronephrosis or hydroureter. LEFT KIDNEY AND URETER: No solid masses. No significant calcifications. No hydronephrosis or hydr oureter. AORTA AND VESSELS: No aneurysm. No dissection. Renal arteries, SMA, celiac without stenosis. RETROPERITONEUM: No retroperitoneal adenopathy, hemorrhage or masses. BOWEL AND PERITONEAL CAVITY: No masses or inflammatory changes. No free fluid or peritoneal masses. APPENDIX: Not identified. PELVIS: Questionable bladder wall thickening versus nondistention. ABDOMINAL WALL: No masses. No hernias. BONES: Lower thoracic and upper lumbar spondylosis. No osseous lesions. OTHER: No other significant finding. IMPRESSION: 1. Questionable bladder wall thickening versus nondistention. Correlate for cystitis. 2. Lower thoracic and upper lumbar spondylosis. TECHNICAL DOCUMENTATION: JOB ID: [id number] Quality ID # [id number]: Final reports with documentation of one or more dose reduction techniques (e.g., Au tomated exposure control, adjustment of the mA and/or kV according to patient size, use of iterative reconstruction technique) 2010 [employer]- All Rights Reserved Reading location - IP/workstation name: [email or web address]
== END ==
LOC: RAD 10:08
PROVIDERS: ATTEND Internal Medicine Medical Oncology
DX: Z85.79 Personal history of other malignant neoplasms of lymphoid, hematopoietic and related tissues (principal); M47.894 Other spondylosis, thoracic region; M47.896 Other spondylosis, lumbar region
CPT/HCPCS: 71260; 74177; 82565

== ENCOUNTER 2018-02-17 10:31 | Observation (INO) | payer MEDICAID ==
--- NOTE | 2018-02-17 10:57 | ER Document Report ---
ED Medical Screen (RME) - General Chief Complaint: Chest Pain Stated Complaint: CHEST PAIN Notes: Patient presents with sharp left sided chest pain that started since Friday of this past week has progressively become worse. Pain is worse with sharp breath that has been radiating down her left arm. She also has been experiencing shortness of breath. States she has history of blood clots and was on anticoagulation but this was back in 1993. She states she is allergic to IV contrast. Recent CT chest/abd/pelvis per patient last Friday, hx of Hodgkin disease. I have greeted and performed a rapid initial assessment of this patient. A comprehensive ED assessment and evaluation of the patient, analysis of test results and completion of the medical decision making process will be conducted by additional ED providers. PHYSICAL EXAMINATION: GENERAL: Well-appearing, well-nourished and in mild distress, obsese. HEAD: Atraumatic, normocephalic. EYES: Pupils equal round extraocular movements intact, conjunctiva are normal. ENT: Nares patent NECK: Normal range of motion LUNGS: No respiratory distress Musculoskeletal: Normal range of motion NEUROLOGICAL: Normal speech, normal gait. PSYCH: Normal mood, normal affect. SKIN: Warm, Dry, normal turgor, no rashes or lesions noted. TRAVEL OUTSIDE OF THE [place] IN LAST 30 DAYS: No - Related Data Allergies/Adverse Reactions: Iodinated Contrast- Oral and IV Dye Allergy (Severe, Verified 02/17/18 10:46) hives, palpitations, and SOB levofloxacin [From Levaquin] Allergy (Severe, Verified 02/17/18 10:46) Shortness of Breath carisoprodol [From Soma] Allergy (Verified 02/17/18 10:46) Difficulty breathing Past Medical History - Social History Chew tobacco use (# tins/day): No Frequency of alcohol use: None Drug Abuse: None - Past Medical History Cardiac Medical History: Reports: Hx Congestive Heart Failure, Hx Heart Attack, Hx Hypercholesterolemia, Hx Hypertension Denies: Hx Coronary Artery Disease Pulmonary Medical History: Reports: Hx Asthma, Hx COPD Denies: Hx Bronchitis, Hx Pneumonia, Hx Tuberculosis Neurological Medical History: Denies: Hx Cerebrovascular Accident, Hx Seizures Endocrine Medical History: Reports: Hx Diabetes Mellitus Type 2 Renal/ Medical History: Denies: Hx Peritoneal Dialysis Malignancy Medical History: Reports: Hx Ovarian Cancer, Hx Renal (Kidney) Cancer GI Medical History: Reports: Hx Irritable Bowel Musculoskeltal Medical History: Denies Hx Arthritis Past Surgical History: Reports: Hx Abdominal Surgery - bladder suspension, mass removal, Hx Appendectomy, Hx Section, Hx Cholecystectomy, Hx Gynecologic Surgery - tubal and hysterectomy mass removed from retroperitoneal, Hx Hysterectomy, Hx Orthopedic Surgery - back, Hx Tonsillectomy. Denies: Hx Pacemaker - Immunizations Hx Diphtheria, Pertussis, Tetanus Vaccination: No Influenza Administration Date for 06/2017 - 10/2017 Season: 06/01/17 Physical Exam - Vital signs Vitals: Temp Pulse Resp BP Pulse Ox 98.6 F 62 20 174/82 H 99 02/17/18 10:36 02/17/18 10:36 02/17/18 10:36 02/17/18 10:36 02/17/18 10:36 Course - Vital Signs Vital signs: Temp Pulse Resp BP Pulse Ox 98.6 F 62 20 174/82 H 99 02/17/18 10:36 02/17/18 10:36 02/17/18 10:36 02/17/18 10:36 02/17/18 10:36 Doctor's Discharge - Discharge Referrals: TALHA RUSSO MD [Primary Care Provider] - Follow up as needed
[2018-02-17 11:28] LABS: ABSOLUTE EOSINOPHILS # (AUTO) 0.2 10^3/uL (0.0-0.6); ABSOLUTE LYMPHOCYTES (AUTO) 0.9 10^3/uL (0.5-4.7); ABSOLUTE MONOCYTES (AUTO) 0.4 10^3/uL (0.1-1.4); ABSOLUTE NEUT (AUTO) 2.4 10^3/uL (1.7-8.2); BASOPHILS % (AUTO) 0.8 % (0-2); EOSINOPHILS % (AUTO) 4.1 % (0-6); HEMATOCRIT 35.8 % (36.0-47.0); HEMOGLOBIN 11.3 g/dL (12.0-15.5); LYMPHOCYTES % (AUTO) 23.3 % (13-45); MEAN CORPUSCULAR HEMOGLOBIN 22.7 pg (27.0-33.4); MEAN CORPUSCULAR HGB CONC 31.7 g/dL (32.0-36.0); MEAN CORPUSCULAR VOLUME 71 fl (80-97); MONOCYTES % (AUTO) 10.3 % (3-13); PLATELET COUNT 219 10^3/uL (150-450); RED BLOOD COUNT 5.01 10^6/uL (3.72-5.28); RED CELL DISTRIBUTION WIDTH 15.9 % (11.5-14.0); SEGMENTED NEUTROPHILS % (AUTO) 61.5 % (42-78); TOTAL CELLS COUNTED % (AUTO) 100 %; WHITE BLOOD COUNT 3.9 10^3/uL (4.0-10.5)
--- NOTE | 2018-02-17 11:58 | RADIOLOGY REPORT (SQ) ---
EXAM DESCRIPTION: CHEST SINGLE VIEW COMPLETED DATE/TIME: 02/17/2018 11:25 am REASON FOR STUDY: chest pain COMPARISON: None. EXAM PARAMETERS: NUMBER OF VIEWS: One view. TECHNIQUE: Single frontal radiographic view of the chest acquired. RADIATION DOSE: NA LIMITATIONS: None. FINDINGS: LUNGS AND PLEURA: No opacities, masses or pneumothorax. No pleural effusion. MEDIASTINUM AND HILAR STRUCTURES: No masses. Contour normal. HEART AND VASCULAR STRUCTURES: Heart normal in size. Normal vasculature. BONES: No acute findings. HARDWARE: Central line on the left. Position unchanged. OTHER: No other significant finding. IMPRESSION: NO ACUTE RADIOGRAPHIC FINDING IN THE CHEST. TECHNICAL DOCUMENTATION: JOB ID: [id number] [employer]- All Rights Reserved Reading location - IP/workstation name: [email or web address]
[2018-02-17 12:04] LABS: INTERNATIONAL RATION (INR) 0.92; PROTHROMBIN TIME 12.9 SEC (11.4-15.4)
[2018-02-17 12:17] LABS: ALANINE AMINOTRANSFERASE 16 U/L (9-52); ALBUMIN 3.9 g/dL (3.5-5.0); ALKALINE PHOSPHATASE 69 U/L (38-126); ANION GAP 11 (5-19); ASPARTATE AMINO TRANSFERASE 14 U/L (14-36); BILIRUBIN,DIRECT 0.4 mg/dL (0.0-0.4); BILIRUBIN,TOTAL 0.5 mg/dL (0.2-1.3); BLOOD UREA NITROGEN 16 mg/dL (7-20); CALCIUM 9.7 mg/dL (8.4-10.2); CARBON DIOXIDE 29 mmol/L (22-30); CHLORIDE 106 mmol/L (98-107); GLUCOSE 106 mg/dL (75-110); POTASSIUM 4.5 mmol/L (3.6-5.0); SODIUM 146.1 mmol/L (137-145); TOTAL PROTEIN 6.7 g/dL (6.3-8.2)
[2018-02-17] MEDS ORDERED: ONDANSETRON HCL INJ/PF 4 MG/2 ML SDV IV ONE (12:42)
[2018-02-17] MEDS ORDERED: FENTANYL CITRATE INJ/PF 100 MCG/2 ML AMPUL IV ONE (12:42)
[2018-02-17] MEDS ORDERED: ALBUTEROL SULFATE 0.083% NEB 2.5 MG/3 ML AMPUL NEB ONE (13:25)
--- NOTE | 2018-02-17 14:45 | ER Document Report ---
ED General - General Chief Complaint: Chest Pain Stated Complaint: CHEST PAIN Time Seen by Provider: 02/17/18 10:59 Notes: 62-year-old female patient emergency department with a several day history of left-sided chest pain. Patient states that she has had a heart attack in the past. Has also had pulmonary embolism. Had a CT scan of the chest abdomen pelvis to evaluate for leukemia. Patient is a cancer survivor. States that after the CT scan she developed some rash and flushing. Was treated with some Benadryl. [place] like her heart was racing at time. Since that time she has been having some left-sided chest pain. She takes nitrates but it does not seem to have helped. Patient was concerned that she could potentially be having a heart attack and maybe even a blood clot. Patient did have a blood clot in 1993. Patient had a nuclear stress test approximately 1 month ago. Denies any fevers, chills, sweats. Has any asymmetrical leg swelling but does have chronic lower extremity edema. TRAVEL OUTSIDE OF THE [place] IN LAST 30 DAYS: No - HPI Onset: Yesterday Onset/Duration: Gradual - Related Data Allergies/Adverse Reactions: Iodinated Contrast- Oral and IV Dye Allergy (Severe, Verified 02/17/18 10:46) hives, palpitations, and SOB levofloxacin [From Levaquin] Allergy (Severe, Verified 02/17/18 10:46) Shortness of Breath carisoprodol [From Soma] Allergy (Verified 02/17/18 10:46) Difficulty breathing Past Medical History - General Information source: Patient - Social History Smoking Status: Never Smoker Chew tobacco use (# tins/day): No Frequency of alcohol use: None Drug Abuse: None Lives with: Family Family History: COPD Patient has suicidal ideation: No Patient has homicidal ideation: No - Past Medical History Cardiac Medical History: Reports: Hx Congestive Heart Failure, Hx Heart Attack, Hx Hypercholesterolemia, Hx Hypertension Denies: Hx Coronary Artery Disease Pulmonary Medical History: Reports: Hx Asthma, Hx COPD Denies: Hx Bronchitis, Hx Pneumonia, Hx Tuberculosis Neurological Medical History: Denies: Hx Cerebrovascular Accident, Hx Seizures Endocrine Medical History: Reports: Hx Diabetes Mellitus Type 2 Renal/ Medical History: Denies: Hx Peritoneal Dialysis Malignancy Medical History: Reports: Hx Ovarian Cancer, Hx Renal (Kidney) Cancer GI Medical History: Reports: Hx Irritable Bowel Musculoskeltal Medical History: Denies Hx Arthritis Past Surgical History: Reports: Hx Abdominal Surgery - bladder suspension, mass removal, Hx Appendectomy, Hx Section, Hx Cholecystectomy, Hx Gynecologic Surgery - tubal and hysterectomy mass removed from retroperitoneal, Hx Hysterectomy, Hx Orthopedic Surgery - back, Hx Tonsillectomy. Denies: Hx Pacemaker - Immunizations Hx Diphtheria, Pertussis, Tetanus Vaccination: No Review of Systems - Review of Systems Constitutional: No symptoms reported EENT: No symptoms reported Cardiovascular: Chest pain. denies: Palpitations, Heart racing Respiratory: Short of breath, Wheezing. denies: Hurts to breathe Gastrointestinal: No symptoms reported Genitourinary: No symptoms reported Female Genitourinary: No symptoms reported Musculoskeletal: Leg swelling, Ankle swelling. denies: Back pain, Joint pain Skin: No symptoms reported Hematologic/Lymphatic: No symptoms reported Neurological/Psychological: No symptoms reported Physical Exam - Vital signs Vitals: Temp Pulse Resp BP Pulse Ox 98.6 F 62 20 174/82 H 99 02/17/18 10:36 02/17/18 10:36 02/17/18 10:36 02/17/18 10:36 02/17/18 10:36 Interpretation: Normal - General General appearance: Appears well, Alert - HEENT Head: Normocephalic, Atraumatic Eyes: Normal Pupils: PERRL - Respiratory Respiratory status: No respiratory distress Chest status: Nontender Breath sounds: Wheezing Chest palpation: Normal - Cardiovascular Rhythm: Regular Heart sounds: Normal auscultation Murmur: Yes Systolic murmur grade 1-6: 3 - Abdominal Inspection: Normal Distension: No distension Bowel sounds: Normal Tenderness: Nontender Organomegaly: No organomegaly - Back Back: Normal, Nontender - Extremities General upper extremity: Normal inspection, Nontender, Normal color, Normal ROM , Normal temperature General lower extremity: Normal inspection, Nontender, Edema, Normal color, Normal ROM, Normal temperature, Normal weight bearing. No: Lawrence's sign - Neurological Neuro grossly intact: Yes Cognition: Normal Orientation: AAOx4 Dorcas Coma Scale Eye Opening: Spontaneous [place] Coma Scale Verbal: Oriented Dorcas Coma Scale Motor: Obeys Commands [place] Coma Scale Total: 15 Speech: Normal Motor strength normal: LUE, RUE, LLE, RLE Sensory: Normal - Psychological Associated symptoms: Normal affect, Normal mood - Skin Skin Temperature: Warm Skin Moisture: Dry Skin Color: Normal Course - Re-evaluation Re-evalutation: 02/17/18 15:22 Talked with the patient's stitch cleaner, Dr. De Leon. Even though she had a recent stress test he feels like she should like to be admitted due to her risk factors. Patient may benefit from diagnostic cardiac catheterization. Apparently this is available at this facility at this time. I have consulted with the hospitalist for admission. Hospitalist to follow-up on the VQ scan results. Hospitalist follow-up on the repeat troponin. Will place for admission at this time. 02/17/18 15:44 - Vital Signs Vital signs: Temp Pulse Resp BP Pulse Ox 98.6 F 62 20 174/82 H 100 02/17/18 10:36 02/17/18 10:36 02/17/18 10:36 02/17/18 10:36 02/17/18 11:50 - Laboratory Result Diagrams: 02/17/18 11:00 02/17/18 11:46 Laboratory results interpreted by me: 02/17/18 02/17/18 02/17/18 11:00 11:46 11:46 WBC 3.9 L Hgb 11.3 L Hct 35.8 L MCV 71 L MCH 22.7 L MCHC 31.7 L RDW 15.9 H D-Dimer 0.68 H Sodium 146.1 H Discharge - Discharge Clinical Impression: Chest pain Qualifiers: Chest pain type: unspecified Qualified Code(s): R07.9 - Chest pain, unspecified Condition: Good Disposition: ADMITTED INPATIENT Admitting Provider: Hospitalist - [facility] Admitted: Telemetry Referrals: TALHA RUSSO MD [ACTIVE STAFF] - Follow up as needed
--- NOTE | 2018-02-17 16:09 | RADIOLOGY REPORT (SQ) ---
EXAM DESCRIPTION: NM LUNG VENT/PERF SCAN COMPLETED DATE/TIME: 02/17/2018 4:01 pm REASON FOR STUDY: sob/hx of blood clots in lungs, sharp chest pain COMPARISON: None. RADIONUCLIDE AND DOSE: 5.09 millicuries TC-99m MAA Intravenous 30.9 millicuries TC-99m DTPA Inhaled aerosol TECHNIQUE: Eight views of the lungs acquired post ventilation of DTPA aerosol. Eight matching views of the lungs acquired following injection of MAA. LIMITATIONS: None. FINDINGS: VENTILATION: Symmetric and homogeneous distribution of DTPA aerosol during ventilatory pha se. No significant areas of photopenia. PERFUSION: Perfusion images with normal homogenous activity and no wedge-shaped or segmental defects. No ventilation-perfusion mismatches. OTHER: No other significant finding. IMPRESSION: NORMAL VENTILATION-PERFUSION LUNG SCAN. NEGATIVE FOR PULMONARY EMBOLI. TECHNICAL DOCUMENTATION: JOB ID: [id number] [employer]- All Rights Reserved Reading location - IP/workstation name: [email or web address]
[2018-02-17] MEDS ORDERED: ONDANSETRON HCL INJ/PF 4 MG/2 ML SDV IV PRN (16:32)
[2018-02-17] MEDS ORDERED: NITROGLYCERIN 0.4 MG/TAB 25 TAB/BOTTLE SL PRN (16:32)
--- NOTE | 2018-02-17 17:09 | PDOC H&P ---
History of Present Illness Admission Date/PCP: 02/17/18 16:12 VANI ELLSWORTH PA-C Patient complains of: Chest pain History of Present Illness: MAXINE DON is a 62 year old female who presents with chest pain. She is rather anxious lady who says she has had a heart attack in the past but said she had a cardiac catheterization 2 years ago that was completely normal with the exception of some pulmonary hypertension. She said she had a PE in 1993. She started having chest pain yesterday the left side of her chest and she said occasionally she feels in her left arm. It is not brought on by exertion. She has pain at rest. She does not look particularly distressed when she says she is having pain while observed at rest. She went to her oncologist's office for follow-up appointment today and was complaining of the chest pain there so her oncologist told her to come here to get evaluated. She apparently had a normal stress test 1 month ago, but her transformer coil winder was contacted and recommended that she be admitted for further workup. Her troponins have been normal. She had a VQ scan in the ER that was normal. Past Medical History Cardiac Medical History: Reports: Congestive Heart Failure, Myocardial Infarction, Hyperlipidema, Hypertension Denies: Coronary Artery Disease Pulmonary Medical History: Reports: Asthma, Chronic Obstructive Pulmonary Disease (COPD) Denies: Bronchitis, Pneumonia, Tuberculosis Neurological Medical History: Denies: Seizures Endocrine Medical History: Reports: Diabetes Mellitus Type 2 Malignancy Medical History: Reports: Ovarian Cancer, Renal (Kidney) Cancer Musculoskeltal Medical History: Denies: Arthritis Hematology: Reports: Anemia - hx of Past Surgical History Past Surgical History: Reports: Appendectomy, Section, Cholecystectomy , Hysterectomy, Orthopedic Surgery - back, Tonsillectomy Denies: Pacemaker Social History Lives with: Family Smoking Status: Never Smoker Frequency of Alcohol Use: None Hx Recreational Drug Use: No Drugs: None Hx Prescription Drug Abuse: No Family History Family History: COPD Parental Family History Reviewed: Yes - Noncontributory Children Family History Reviewed: NA Sibling(s) Family History Reviewed.: NA Medication/Allergy Home Medications: Albuterol Sulfate [Proair Hfa Inhalation Aerosol 8.5 gm Mdi] 2 puff IH QID 02/17 Amlodipine Besylate [Norvasc 5 mg Tablet] 5 mg PO Q12 02/17/18 Isosorbide Mononitrate [Isosorbide Mononitrate ER] 30 mg PO QAM 02/17/18 Levothyroxine Sodium [Synthroid 0.025 mg Tablet] 0.025 mg PO DAILY 02/17/18 Metoprolol Succinate [Toprol Xl] 12.5 mg PO Q12 02/17/18 Montelukast Sodium [Singulair 10 mg Tablet] 10 mg PO QHS 02/17/18 Omeprazole 40 mg PO DAILY 02/17/18 Spironolactone [Aldactone 25 mg Tablet] 25 mg PO DAILY 02/17/18 Allergies/Adverse Reactions: Iodinated Contrast- Oral and IV Dye Allergy (Severe, Verified 02/17/18 10:46) hives, palpitations, and SOB levofloxacin [From Levaquin] Allergy (Severe, Verified 02/17/18 10:46) Shortness of Breath carisoprodol [From Soma] Allergy (Verified 02/17/18 10:46) Difficulty breathing Physical Exam Vital Signs: Temp Pulse Resp BP Pulse Ox 98.6 F 62 20 174/82 H 100 02/17/18 10:36 02/17/18 10:36 02/17/18 10:36 02/17/18 10:36 02/17/18 11:50 General appearance: PRESENT: no acute distress, cooperative, other - Calm but simultaneously anxious Head exam: PRESENT: atraumatic, normocephalic Eye exam: PRESENT: conjunctiva pink, PERRLA. ABSENT: conjunctival injection, periorbital swelling, scleral icterus Ear exam: PRESENT: normal external ear exam Mouth exam: PRESENT: moist, tongue midline Teeth exam: PRESENT: edentulous Throat exam: ABSENT: post pharyngeal erythema, tonsillogmegaly Neck exam: PRESENT: full ROM. ABSENT: carotid bruit, JVD, lymphadenopathy, tenderness Respiratory exam: PRESENT: unlabored. ABSENT: accessory muscle use, chest wall tenderness, clear to auscultation otilia, crackles, decreased breath sounds, prolonged expiratory phas, rales, rhonchi, stridor, tachypnea, wheezes Cardiovascular exam: PRESENT: RRR, +S1, +S2. ABSENT: bradycardia, clicks, diastolic murmur, gallop, irregular rhythm Pulses: PRESENT: normal carotid pulses, normal radial pulses Vascular exam: PRESENT: normal capillary refill GI/Abdominal exam: PRESENT: soft. ABSENT: ascites, diminished bowel sounds, distended, firm, guarding, rebound Rectal exam: PRESENT: deferred Extremities exam: ABSENT: calf tenderness, clubbing, joint swelling, pedal edema Musculoskeletal exam: PRESENT: ambulatory, full ROM. ABSENT: deformity Neurological exam: PRESENT: alert, awake, oriented to person, oriented to place , oriented to time, oriented to situation, CN II-XII grossly intact Psychiatric exam: PRESENT: anxious Skin exam: PRESENT: abrasion, cyanosis, warm Results Laboratory Results: Reviewed EKG Comments: Sinus rhythm with no signs of acute ischemia Impressions: Chest X-Ray 02/17/18 10:43 IMPRESSION: NO ACUTE RADIOGRAPHIC FINDING IN THE CHEST. Lung Scan-VQ NM 02/17/18 10:55 IMPRESSION: NORMAL VENTILATION-PERFUSION LUNG SCAN. NEGATIVE FOR PULMONARY EMBOLI. Status: Imported from PACS Assessment & Plan - Diagnosis (1) Chest pain Qualifiers: Chest pain type: unspecified Qualified Code(s): R07.9 - Chest pain, unspecified Is this a current diagnosis for this admission?: Yes Plan: Her transformer coil winder wanted her admitted for a workup, so we will consult him. We will trend her troponins and keep on a diagnostic cardiac sonographer. Will let her transformer coil winder decide whether or not he wants to perform another stress test, or get a cardiac catheterization. We will look to see if she has had a recent echocardiogram. - Time Time Spent: 50 to 70 Minutes Medications reviewed and adjusted accordingly: Yes Anticipated discharge: Home Within: within 24 hours
--- NOTE | 2018-02-17 19:54 | PDOC CONSULTATION ---
Consultation Consult Date: 02/17/18 Attending physician:: STEPHANIE BARROW Consult reason:: Chest pain History of Present Illness Admission Date/PCP: 02/17/18 16:12 VANI ELLSWORTH PA-C Patient complains of: Chest pain History of Present Illness: MAXINE DON is a 62 year old female who presents with chest pain. She is rather anxious lady who says she has had a heart attack in the past but said she had a cardiac catheterization 2 years ago that was completely normal with the exception of some pulmonary hypertension. She said she had a PE in 1993. She started having chest pain yesterday the left side of her chest and she said occasionally she feels in her left arm. It is not brought on by exertion. She has pain at rest. She does not look particularly distressed when she says she is having pain while observed at rest. She went to her oncologist's office for follow-up appointment today and was complaining of the chest pain there so her oncologist told her to come here to get evaluated. She apparently had a normal stress test 1 month ago, but her community specialist was contacted and recommended that she be admitted for further workup. Her troponins have been normal. She had a VQ scan in the ER that was normal. This history was reviewed. Patient claims that her symptoms started after she had a CT scan of the abdomen chest and pelvis, to follow-up on non-Hodgkin's lymphoma. Patient did not have a stress test last month but her stress test that I have in my office record is from August 2017. This was performed at the [facility]. Patient did have a 2D echocardiogram in November 2017 which showed normal LVEF, some diastolic dysfunction. Past Medical History Cardiac Medical History: Reports: Congestive Heart Failure, Myocardial Infarction, Hyperlipidema, Hypertension Denies: Coronary Artery Disease Pulmonary Medical History: Reports: Asthma, Chronic Obstructive Pulmonary Disease (COPD) Denies: Bronchitis, Pneumonia, Tuberculosis Neurological Medical History: Denies: Seizures Endocrine Medical History: Reports: Diabetes Mellitus Type 2 Malignancy Medical History: Reports: Ovarian Cancer, Renal (Kidney) Cancer Musculoskeltal Medical History: Denies: Arthritis Hematology: Reports: Anemia Past Surgical History Past Surgical History: Reports: Appendectomy, Section, Cholecystectomy , Hysterectomy, Orthopedic Surgery - back, Tonsillectomy Denies: Pacemaker Social History Information Source: Patient Lives with: Family Smoking Status: Former Smoker Frequency of Alcohol Use: None Hx Recreational Drug Use: No Drugs: None Hx Prescription Drug Abuse: No - Advance Directive Resuscitation Status: Full Code Surrogate healthcare decision maker:: Patient's daughter is the surrogate decision-maker Family History Family History: COPD Parental Family History Reviewed: Yes Children Family History Reviewed: Yes Sibling(s) Family History Reviewed.: Yes Medication/Allergy Home Medications: Albuterol Sulfate [Proair Hfa Inhalation Aerosol 8.5 gm Mdi] 2 puff IH QID 02/17 Amlodipine Besylate [Norvasc 5 mg Tablet] 5 mg PO Q12 02/17/18 Isosorbide Mononitrate [Isosorbide Mononitrate ER] 30 mg PO QAM 02/17/18 Levothyroxine Sodium [Synthroid 0.025 mg Tablet] 0.025 mg PO DAILY 02/17/18 Metoprolol Succinate [Toprol Xl] 12.5 mg PO Q12 02/17/18 Montelukast Sodium [Singulair 10 mg Tablet] 10 mg PO QHS 02/17/18 Omeprazole 40 mg PO DAILY 02/17/18 Spironolactone [Aldactone 25 mg Tablet] 25 mg PO DAILY 02/17/18 Allergies/Adverse Reactions: Iodinated Contrast- Oral and IV Dye Allergy (Severe, Verified 02/17/18 10:46) hives, palpitations, and SOB levofloxacin [From Levaquin] Allergy (Severe, Verified 02/17/18 10:46) Shortness of Breath carisoprodol [From Soma] Allergy (Verified 02/17/18 10:46) Difficulty breathing Review of Systems Review of Systems: Please see history of present illness and past medical history as wall. Constitutional: No fever or chills reported. Head : No recent chronic headaches, recent head injury. Eyes: No recent eye pain, diplopia, redness, discharge, acute visual changes. Ears: No recent chronic ear pain, acute hearing loss, ear discharge. Oral cavity: No recent ulcerations, bleeding, oral cavity discomfort. Neck: No recent acute neck pain reported. Hematologic: No recent easy bruising or bleeding. Lymphatic: No recent lymph node enlargement reported. History of non-Hodgkin's lymphoma being followed by oncologist. Cardiovascular system review: See history of present illness. Respiratory system review: No hemoptysis or blood clots in the lungs reported. Mild Shortness of breath on exertion Gastrointestinal system review: Negative for any recent acute hematemesis, melena. Genitourinary system review: No recent acute or chronic hematuria, flank pain, UTI etc. reported. Skin system review: Negative for any recent abnormal bruising, no rash, no pruritus reported. Neurologic: No prior history of strokes, mini strokes, seizure disorder. Psychologic: No history of major psychosis or major depression reported. Musculoskeletal: Minor aches and pains reported. No acute joint swelling reported. Endocrine: No recent polyuria, polydipsia, recent heat or cold intolerance. Physical Exam Vital Signs: Temp Pulse Resp BP Pulse Ox 98.4 F 63 20 164/67 H 99 02/17/18 17:31 02/17/18 17:31 02/17/18 17:31 02/17/18 17:31 02/17/18 17:31 Intake & Output 02/16/18 02/17/18 02/18/18 06:59 06:59 06:59 Weight 132.8 kg Exam: GENERAL: well-nourished and in no acute distress. Alert and oriented x3 HEAD: Atraumatic, normocephalic. EYES: Pupils equal round and reactive to light, extraocular movements intact, sclera anicteric, conjunctiva are normal. ENT: TMs normal, nares patent, oropharynx clear without exudates. Moist mucous membranes. No oral ulcerations or bleeding gums noted NECK: supple without lymphadenopathy. Trachea is central. No cervical or axillary lymphadenopathy noted. Carotids are 2+, JVD WNL LUNGS: Respiration seems nonlabored, no significant accessory muscle action noted. Breath sounds clear to auscultation bilaterally and equal noted. No wheezes rales or rhonchi noted. No significant dullness noted on percussion. CHEST: Palpation of the chest wall shows no significant chest wall tenderness. 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 ABDOMEN: Soft, no significant tenderness appreciated, normoactive bowel sounds. No guarding, no rebound. No rigidity noted . No masses appreciated. EXTREMITIES: Pedal pulses are 1-2+, no calf tenderness noted. No clubbing or cyanosis. negative pedal edema noted NEUROLOGICAL: Focused neurological exam showed no significant neurologic deficit. Normal speech, no focal weakness appreciated. PSYCH: Normal mood, normal affect. Judgment and insight within normal limits. SKIN: No significant ecchymosis, skin is noted to be warm. MUSCULOSKELETAL EXAM: No significant acute joint swelling noted. Results Laboratory Results: 02/17/18 16:30 Troponin I < 0.012 EKG Comments: Showed sinus rhythm, no acute ST-T wave changes were noted. Impressions: Chest X-Ray 02/17/18 10:43 IMPRESSION: NO ACUTE RADIOGRAPHIC FINDING IN THE CHEST. Lung Scan-VQ NM 02/17/18 10:55 IMPRESSION: NORMAL VENTILATION-PERFUSION LUNG SCAN. NEGATIVE FOR PULMONARY EMBOLI. Assessment & Plan - Diagnosis (1) Chest pain Qualifiers: Chest pain type: unspecified Qualified Code(s): R07.9 - Chest pain, unspecified Is this a current diagnosis for this admission?: Yes (2) Morbid obesity Is this a current diagnosis for this admission?: Yes (3) Obstructive sleep apnea Is this a current diagnosis for this admission?: Yes (4) Hypertension Qualifiers: Hypertension type: essential hypertension Qualified Code(s): I10 - Essential (primary) hypertension Is this a current diagnosis for this admission?: Yes (5) Pulmonary hypertension Is this a current diagnosis for this admission?: Yes - Notes Notes: Chest pain: Patient has chest pain which is atypical. Pleuritic in nature. VQ scan is negative. Possibly musculoskeletal, possible gastroesophageal reflux, possible cardiac ischemia. At this point, patient stress test was 6 months ago. Patient describes allergic reaction to contrast agent. Will schedule patient for a nuclear stress test. In the meantime will try patient on empiric proton pump inhibitor and also nonsteroidal anti-inflammatory medication. Sleep apnea syndrome: Patient describes history of severe sleep apnea syndrome. Patient will benefit from institution of CPAP therapy while she is at the hospital. Patient was encouraged to bring her CPAP machine. Hypertension: Currently stable. Blood pressure goal should be 135/85 or less. Pulmonary hypertension: Possibly related to obesity hypoventilation syndrome, sleep apnea syndrome. Pulmonary thromboembolism been ruled out. - Time Time Spent: 30 to 50 Minutes - CODE STATUS was discussed, patient remains full code. Surrogate decision-maker patient's daughter. Multiple medical problems were addressed. More than 50% of the time spent coordinating care, discussing management plans with involved caregivers. Management plans discussed with involved personnels. Medical decision making was of moderate to high complexity , patient's has multiple comorbidities. Medications reviewed and adjusted accordingly: Yes
[2018-02-17] MEDS ORDERED: ASPIRIN 81 MG TABLET, CHEWABLE PO ONE (19:56)
[2018-02-17] MEDS: PANTOPRAZOLE SODIUM 40 MG VIAL IV SCH (21:43)
[2018-02-17] MEDS: ALBUTEROL SULFATE HFA (90 MCG/PUFF) 200 PUFF/8.5 GM MDI IH SCH (21:44)
[2018-02-17] MEDS: AMLODIPINE BESYLATE 5 MG TABLET PO SCH (21:51)
[2018-02-17] MEDS: METOPROLOL SUCCINATE 25 MG TAB.SR.24H PO SCH (21:51)
[2018-02-17] MEDS ORDERED: ATORVASTATIN CALCIUM 80 MG TABLET PO SCH (22:00)
[2018-02-17] MEDS ORDERED: MONTELUKAST SODIUM 10 MG TABLET PO SCH (22:00)
--- NOTE | 2018-02-17 22:42 | EKG REPORT ---
SEVERITY:- ABNORMAL ECG - SINUS BRADYCARDIA CONSIDER LEFT VENTRICULAR HYPERTROPHY ANTERIOR Q WAVES, POSSIBLY DUE TO LVH : Confirmed by: María De Leon 17-Feb-2018 22:42:00
--- NOTE | 2018-02-17 22:44 | EKG REPORT ---
SEVERITY:- ABNORMAL ECG - SINUS BRADYCARDIA CONSIDER LEFT VENTRICULAR HYPERTROPHY ANTERIOR Q WAVES, POSSIBLY DUE TO LVH : Confirmed by: María De Leon 17-Feb-2018 22:43:10
[2018-02-18 05:41] LABS: ANION GAP 11 (5-19); BLOOD UREA NITROGEN 14 mg/dL (7-20); CALCIUM 9.6 mg/dL (8.4-10.2); CARBON DIOXIDE 29 mmol/L (22-30); CHLORIDE 105 mmol/L (98-107); CHOLESTEROL 171.31 mg/dL (0-200); GLUCOSE 105 mg/dL (75-110); POTASSIUM 4.1 mmol/L (3.6-5.0); SODIUM 145.3 mmol/L (137-145); TRIGLYCERIDES 132 mg/dL (<150)
[2018-02-18 05:53] LABS: DIRECT LDL 118 mg/dL (<100)
[2018-02-18] MEDS ORDERED: LANSOPRAZOLE 30 MG TAB.RAP.DR PO SCH (06:00)
[2018-02-18] MEDS ORDERED: ISOSORBIDE MONONITRATE 30 MG TAB.ER.24H PO SCH (08:00)
[2018-02-18] MEDS: NAPROXEN 375 MG TABLET PO SCH ×2 (09:33→17:26)
[2018-02-18] MEDS: ALBUTEROL SULFATE HFA (90 MCG/PUFF) 200 PUFF/8.5 GM MDI IH SCH ×3 (09:34→17:26)
[2018-02-18] MEDS: PANTOPRAZOLE SODIUM 40 MG VIAL IV SCH (09:35)
[2018-02-18] MEDS: METOPROLOL SUCCINATE 25 MG TAB.SR.24H PO SCH (09:37)
[2018-02-18] MEDS: AMLODIPINE BESYLATE 5 MG TABLET PO SCH (09:37)
--- NOTE | 2018-02-18 09:38 | EKG REPORT ---
SEVERITY:- ABNORMAL ECG - SINUS BRADYCARDIA CONSIDER ANTEROSEPTAL INFARCT : Confirmed by: María De Leon 18-Feb-2018 09:37:45
[2018-02-18] MEDS ORDERED: SPIRONOLACTONE 25 MG TABLET PO SCH (10:00)
[2018-02-18] MEDS ORDERED: LEVOTHYROXINE SODIUM 0.025 MG TABLET PO SCH (10:00)
[2018-02-18] MEDS ORDERED: ASPIRIN 325 MG TABLET, ENT COATED PO SCH (10:00)
[2018-02-18] MEDS ORDERED: ASPIRIN 81 MG TABLET, CHEWABLE PO SCH (10:00)
--- NOTE | 2018-02-18 12:34 | PDOC PROGRESS REPORT ---
Subjective Progress Note for:: 02/18/18 Subjective:: Patient seems to be doing better with gradual improvement. Pt is denying any chest arm or neck discomfort. Patient denying any PND, orthopnea. Patient denied any sustained palpitations, dizziness, syncope, near syncope. Patient denying any fever chills. Patient denying any other significant discomfort. Patient is maintaining sinus rhythm. Review of systems: Rest review of systems negative. Medications: Medications have been reviewed. Reason For Visit: CHEST PAIN Physical Exam Vital Signs: Temp Pulse Resp BP Pulse Ox 98.2 F 59 L 18 121/61 100 02/18/18 11:49 02/18/18 11:49 02/18/18 11:49 02/18/18 11:49 02/18/18 11:49 Intake & Output 02/17/18 02/18/18 02/19/18 06:59 06:59 06:59 Intake Total 384 Output Total 2 Balance 382 Weight 132.8 kg Exam: GENERAL: well-nourished and in no acute distress. Alert and oriented x3 HEAD: Atraumatic, normocephalic. EYES: Pupils equal round and reactive to light, extraocular movements intact, sclera anicteric, conjunctiva are normal. ENT: TMs normal, nares patent, oropharynx clear without exudates. Moist mucous membranes. No oral ulcerations or bleeding gums noted NECK: supple without lymphadenopathy. Trachea is central. No cervical or axillary lymphadenopathy noted. Carotids are 2+, JVD WNL LUNGS: Respiration seems nonlabored, no significant accessory muscle action noted. Breath sounds clear to auscultation bilaterally and equal noted. No wheezes rales or rhonchi noted. No significant dullness noted on percussion. CHEST: Palpation of the chest wall shows no significant chest wall tenderness. 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 ABDOMEN: Soft, no significant tenderness appreciated, normoactive bowel sounds. No guarding, no rebound. No rigidity noted . No masses appreciated. EXTREMITIES: Pedal pulses are 1-2+, no calf tenderness noted. No clubbing or cyanosis. negative pedal edema noted NEUROLOGICAL: Focused neurological exam showed no significant neurologic deficit. Normal speech, no focal weakness appreciated. PSYCH: Normal mood, normal affect. Judgment and insight within normal limits. SKIN: No significant ecchymosis, skin is noted to be warm. MUSCULOSKELETAL EXAM: No significant acute joint swelling noted. Results Laboratory Results: 02/18/18 04:38 02/18/18 04:38 Sodium 145.3 H Potassium 4.1 Chloride 105 Carbon Dioxide 29 Anion Gap 11 BUN 14 Creatinine 0.65 Est GFR ( Amer) > 60 Est GFR (Non-Af Amer) > 60 Glucose 105 Calcium 9.6 Triglycerides 132 Cholesterol 171.31 LDL Cholesterol Direct 118 H VLDL Cholesterol 26.0 HDL Cholesterol 33 L 02/17/18 02/18/18 22:30 04:38 Troponin I < 0.012 < 0.012 EKG Comments: Shows sinus rhythm without any sustained tachycardia or bradycardia Impressions: Chest X-Ray 02/17/18 10:43 IMPRESSION: NO ACUTE RADIOGRAPHIC FINDING IN THE CHEST. Lung Scan-VQ NM 02/17/18 10:55 IMPRESSION: NORMAL VENTILATION-PERFUSION LUNG SCAN. NEGATIVE FOR PULMONARY EMBOLI. Assessment & Plan - Diagnosis (1) Chest pain Qualifiers: Chest pain type: unspecified Qualified Code(s): R07.9 - Chest pain, unspecified Is this a current diagnosis for this admission?: Yes (2) Morbid obesity Is this a current diagnosis for this admission?: Yes (3) Obstructive sleep apnea Is this a current diagnosis for this admission?: Yes (4) Hypertension Qualifiers: Hypertension type: essential hypertension Qualified Code(s): I10 - Essential (primary) hypertension Is this a current diagnosis for this admission?: Yes (5) Pulmonary hypertension Is this a current diagnosis for this admission?: Yes (6) Dyspnea on exertion Is this a current diagnosis for this admission?: Yes - Notes Notes: Chest pain: Patient has chest pain which is atypical. Pleuritic in nature. VQ scan is negative. Possibly musculoskeletal, possible gastroesophageal reflux. Patient's office records was reviewed. It seems she had a cardiac CT angiogram performed at [facility] and was negative for any CAD. At this point given negative enzymes, feel that it is best to treat patient for presumed musculoskeletal discomfort and gastroesophageal reflux disease. Patient was started on proton pump inhibitor and also Naprosyn. She just got the first dose of Naprosyn. Patient was encouraged to ambulate. If she remains fine, she could be discharged either later on today or tomorrow depending on how patient feels. Sleep apnea syndrome: Patient describes history of severe sleep apnea syndrome. Patient will benefit from institution of CPAP therapy while she is at the hospital. Patient was encouraged to bring her CPAP machine. Patient actually did bring her CPAP machine and used it last night. Hypertension: Currently stable. Blood pressure goal should be 135/85 or less. Pulmonary hypertension: Possibly related to obesity hypoventilation syndrome, sleep apnea syndrome. Pulmonary thromboembolism been ruled out. Obesity: Patient has been encouraged in gradual weight loss. Dyspnea on exertion: This is multifactorial. Most likely related to weight and diastolic dysfunction. Patient encouraged them gradually increasing her activities and also try to lose weight. - Time Time with patient: Greater than 35 minutes - Significant time spent discussing previous cardiac evaluation. CODE STATUS was discussed, patient remains full code. Surrogate decision-maker patient's daughter, Radhika Cortez. Multiple medical problems were addressed. More than 50% of the time spent coordinating care, discussing management plans with involved caregivers. Management plans discussed with involved personnels. Medical decision making was of moderate to high complexity, patient's has multiple comorbidities. Medications reviewed and adjusted accordingly: Yes
[2018-02-18 16:15] VITALS: BP 94/43
--- NOTE | 2018-02-18 20:03 | PDOC DISCHARGE SUMMARY ---
General - Admit/Disc Date/PCP Admission Date/Primary Care Provider: 02/17/18 16:33 VANI ELLSWORTH PA-C Discharge Date: 02/18/18 - Discharge Diagnosis (1) Chest pain Is this a current diagnosis for this admission?: Yes Summary: Her troponins have all been negative and she had no evidence on ECG monitoring for ischemia. She had CT angiography of her coronaries last month and that was completely normal and she had a stress test a few months ago that was completely normal. Her home coordinator decided that she did not need a stress test that she could go home on her usual medications. She also had a VQ scan that was negative. - Additional Information Resuscitation Status: Full Code Discharge Diet: Cardiac Discharge Activity: Activity As Tolerated Home Medications: Albuterol Sulfate [Proair HFA Inhalation Aerosol 8.5 gm MDI] 2 puff IH QID 02/17 Amlodipine Besylate [Norvasc 5 mg Tablet] 5 mg PO Q12 02/17/18 Isosorbide Mononitrate [Isosorbide Mononitrate ER] 30 mg PO QAM 02/17/18 Metoprolol Succinate [Toprol Xl] 12.5 mg PO Q12 02/17/18 Montelukast Sodium [Singulair 10 mg Tablet] 10 mg PO QHS 02/17/18 Omeprazole 40 mg PO DAILY 02/17/18 Spironolactone [Aldactone 25 mg Tablet] 25 mg PO DAILY 02/17/18 Aspirin [Aspirin 81 mg Chewable Tablet] 81 mg PO DAILY tab.chew 02/18/18 History of Present Illness History of Present Illness: MAXINE DON is a 62 year old female who presents with chest pain. She is rather anxious lady who says she has had a heart attack in the past but said she had a cardiac catheterization 2 years ago that was completely normal with the exception of some pulmonary hypertension. She said she had a PE in 1993. She started having chest pain yesterday the left side of her chest and she said occasionally she feels in her left arm. It is not brought on by exertion. She has pain at rest. She does not look particularly distressed when she says she is having pain while observed at rest. She went to her oncologist's office for follow-up appointment today and was complaining of the chest pain there so her oncologist told her to come here to get evaluated. She apparently had a normal stress test 1 month ago, but her home coordinator was contacted and recommended that she be admitted for further workup. Her troponins have been normal. She had a VQ scan in the ER that was normal. Hospital Course Hospital Course: Her troponins were negative she had no signs of ischemia on ECG monitoring. Because of the normal testing that she had done recently as noted above, her home coordinator decided not to do a stress test because he did not think it was indicated at this time. She is not having any pain now. She will go home on her usual medications. Her labs and examination were reassuring and she was discharged in good condition. Physical Exam Vital Signs: Temp Pulse Resp BP Pulse Ox 97.7 F 51 L 18 94/43 L 97 02/18/18 17:46 02/18/18 17:46 02/18/18 17:46 02/18/18 17:46 02/18/18 17:46 Intake & Output 02/17/18 02/18/18 02/19/18 06:59 06:59 06:59 Intake Total 384 Output Total 2 Balance 382 Weight 132.8 kg General appearance: PRESENT: no acute distress, morbidly obese, well-developed Head exam: PRESENT: atraumatic, normocephalic Respiratory exam: PRESENT: clear to auscultation otilia. ABSENT: rales, rhonchi, wheezes Cardiovascular exam: PRESENT: RRR. ABSENT: diastolic murmur, rubs, systolic murmur GI/Abdominal exam: PRESENT: normal bowel sounds, soft. ABSENT: distended, guarding, mass, organolmegaly, rebound, tenderness Extremities exam: PRESENT: full ROM. ABSENT: calf tenderness, clubbing, pedal edema Neurological exam: PRESENT: alert, awake, oriented to person, oriented to place , oriented to time Results Laboratory Results: 02/18/18 04:38 02/18/18 04:38 Sodium 145.3 H Potassium 4.1 Chloride 105 Carbon Dioxide 29 Anion Gap 11 BUN 14 Creatinine 0.65 Est GFR ( Amer) > 60 Est GFR (Non-Af Amer) > 60 Glucose 105 Calcium 9.6 Triglycerides 132 Cholesterol 171.31 LDL Cholesterol Direct 118 H VLDL Cholesterol 26.0 HDL Cholesterol 33 L 02/17/18 02/18/18 22:30 04:38 Troponin I < 0.012 < 0.012 Impressions: Chest X-Ray 02/17/18 10:43 IMPRESSION: NO ACUTE RADIOGRAPHIC FINDING IN THE CHEST. Lung Scan-VQ NM 02/17/18 10:55 IMPRESSION: NORMAL VENTILATION-PERFUSION LUNG SCAN. NEGATIVE FOR PULMONARY EMBOLI. Qualifiers - * PATIENT BEING DISCHARGED WITH ANY OF THE FOLLOWING DIAGNOSIS: No
== END 2018-02-18 18:56 | disposition home or self-care (01) ==
LOC: ER 10:31 → UNDOADMOB 16:12 → INTOOBSV 16:12 → EH 16:12 → 5 17:22 → EH 17:22
PROVIDERS: ADMIT Internal Medicine; ATTEND Internal Medicine
DX: R07.89 Other chest pain (principal); I25.2 Old myocardial infarction; E66.01 Morbid (severe) obesity due to excess calories; G47.33 Obstructive sleep apnea (adult) (pediatric); I11.0 Hypertensive heart disease with heart failure; I50.9 Heart failure, unspecified; I27.20 Pulmonary hypertension, unspecified; R06.09 Other forms of dyspnea; R60.0 Localized edema; J44.9 Chronic obstructive pulmonary disease, unspecified; Z68.41 Body mass index [BMI] 40.0-44.9, adult; Z79.82 Long term (current) use of aspirin; Z87.891 Personal history of nicotine dependence; Z79.899 Other long term (current) drug therapy; Z86.711 Personal history of pulmonary embolism; Z90.49 Acquired absence of other specified parts of digestive tract; Z85.43 Personal history of malignant neoplasm of ovary; Z85.528 Personal history of other malignant neoplasm of kidney; Z82.5 Family history of asthma and other chronic lower respiratory diseases; Z85.72 Personal history of non-Hodgkin lymphomas; Z91.041 Radiographic dye allergy status
CPT/HCPCS: 93005 ×2; 94640; 99285; 96374; 36415 ×2; 82962; 83735; 85025; 85610; 80048; 80053; 84484 ×2; 85379; 80061; 83880; 71045; 78582; 93010 ×2; G0378 ×3; A9540; A9567; J3490 ×8; J3010; S0164 ×2

== ENCOUNTER → 2018-06-03 | Outpatient (CLI) | payer MEDICAID ==
--- NOTE | 2018-06-03 13:23 | RADIOLOGY REPORT (SQ) ---
EXAM DESCRIPTION: CHEST PA/LATERAL COMPLETED DATE/TIME: 06/03/2018 1:01 pm REASON FOR STUDY: COUGH,SHORTNESS OF BREATH R05 COUGH R06.02 SHORTNESS OF BREATH COMPARISON: 02/17/2018 NUMBER OF VIEWS: Two view. TECHNIQUE: Frontal and lateral radiographic views of the chest acquired. LIMITATIONS: None. FINDINGS: LUNGS AND PLEURA: Stable scarring in the lingula. No pleural effusion. MEDIASTINUM AND HILAR STRUCTURES: No masses. No contour abnormalities. HEART AND VASCULAR STRUCTURES: Heart enlarged without failure. Aorta normal for age. BONES: No acute findings. HARDWARE: None in the chest. OTHER: Unchanged position of left-sided port. IMPRESSION: No acute findings in the chest. TECHNICAL DOCUMENTATION: JOB ID: [id number] [employer]- All Rights Reserved Reading location - IP/workstation name: [email or web address]
== END ==
LOC: OD 12:46
PROVIDERS: ATTEND Physician Assistant Medical
DX: R05 Cough (principal); R06.02 Shortness of breath
CPT/HCPCS: 71046

== ENCOUNTER → 2018-12-10 | Outpatient (CLI) | payer MEDICAID, OTHER ==
--- NOTE | 2018-12-10 13:58 | RADIOLOGY REPORT (SQ) ---
EXAM DESCRIPTION: NM GASTRIC EMPTYING STUDY COMPLETED DATE/TIME: 12/10/2018 1:21 pm REASON FOR STUDY: NAUSEA - EPIGASTRIC PAIN R10.13 EPIGASTRIC PAIN R11.0 NAUSEA COMPARISON: None. RADIONUCLIDE AND DOSE: 2 millicuries Tc-99m Sulfur Colloid. Egg salad sandwich The route of agent administration: Oral. TECHNIQUE: 1 minute serial static imaging performed at time of meal, 1 hour, 2 hours, 3 hours, and 4 hours as needed. Once stomach reaches 90% emptying, the test is complete. Image intensity values pl otted with respect to time with linear regression algorithm. LIMITATIONS: None. FINDINGS: Patient was observed for 4 hours. Immediate post meal serves as baseline. Gastric emptying at 30 minutes was 31.3%. Gastric emptying at 60 minutes was 52.8% Gastric emptying at 90 minutes was 67.6%. Gastric emptying at 120 minutes was 77.7%. Gastric emptying at 240 minutes was 95% Normal values: 60 minutes: 30-90% retained. If less than 30%, abnormally rapid emptying. If greater than 90%, del ayed gastric emptying. 120 minutes: <60% retained. If greater than 60%, delayed gastric emptying. 240 minutes: <10% retained. If greater than 10%, delayed gastric emptying. IMPRESSION: NORMAL GASTRIC EMPTYING. TECHNICAL DOCUMENTATION: JOB ID: [id number] [employer]- All Rights Reserved rev Reading location - IP/workstation name: [email or web address]
== END ==
LOC: RAD 07:50
PROVIDERS: ATTEND Internal Medicine Gastroenterology
DX: R11.0 Nausea (principal); R10.13 Epigastric pain
CPT/HCPCS: 78264; A9541

== ENCOUNTER 2018-12-25 16:19 | Emergency (ER) | payer MEDICAID ==
[2018-12-25] MEDS ORDERED: DIPHENHYDRAMINE HCL 50 MG/ML VIAL IV ONE (16:53)
--- NOTE | 2018-12-25 16:54 | ER Document Report ---
ED Medical Screen (RME) - General Chief Complaint: Allergic Reaction Stated Complaint: POSSIBLE ALLERGIC REACTION Time Seen by Provider: 12/25/18 16:52 Primary Care Provider: SAMARA KELLEY MD [Primary Care Provider] - Follow up as needed Mode of Arrival: Ambulatory Information source: Patient Notes: Patient presents today concerned about an allergic reaction to IV dye. Patient states that she premedicated with steroids Zantac and Benadryl at 930 last night and again at 730 this morning prior to her CT scan that was performed at 10:00 today. Patient states she had a CT chest abdomen and pelvis with IV contrast. Patient states that initially after the study she had some shortness of breath. Patient states that she was discharged home and that the shortness of breath persisted in addition to chest pain nausea and she feels as though the left side of her face is swollen. Patient without any objective swelling at this time, no angioedema. hx: Non-Hodgkin's lymphoma asthma, hypertension, CHF [employer] TRAVEL OUTSIDE OF THE [place] IN LAST 30 DAYS: No - Related Data Allergies/Adverse Reactions: Iodinated Contrast- Oral and IV Dye Allergy (Severe, Verified 02/17/18 10:46) hives, palpitations, and SOB levofloxacin [From Levaquin] Allergy (Severe, Verified 02/17/18 10:46) Shortness of Breath carisoprodol [From Soma] Allergy (Verified 02/17/18 10:46) Difficulty breathing Past Medical History - Past Medical History Cardiac Medical History: Reports: Hx Congestive Heart Failure, Hx Heart Attack, Hx Hypercholesterolemia, Hx Hypertension Denies: Hx Coronary Artery Disease Pulmonary Medical History: Reports: Hx Asthma, Hx COPD Denies: Hx Bronchitis, Hx Pneumonia, Hx Tuberculosis Neurological Medical History: Denies: Hx Cerebrovascular Accident, Hx Seizures Endocrine Medical History: Reports: Hx Diabetes Mellitus Type 2 Renal/ Medical History: Denies: Hx Peritoneal Dialysis Malignancy Medical History: Reports: Hx Ovarian Cancer, Hx Renal (Kidney) Cancer GI Medical History: Reports: Hx Irritable Bowel Musculoskeltal Medical History: Denies Hx Arthritis Past Surgical History: Reports: Hx Abdominal Surgery - bladder suspension, mass removal, Hx Appendectomy, Hx Section, Hx Cholecystectomy, Hx Gyneco logic Surgery - tubal and hysterectomy mass removed from retroperitoneal, Hx Hysterectomy, Hx Orthopedic Surgery - back, Hx Tonsillectomy. Denies: Hx Pacemaker - Immunizations Hx Diphtheria, Pertussis, Tetanus Vaccination: No Influenza Administration Date for 06/2017 - 10/2017 Season: 06/01/17 Physical Exam - Vital signs Vitals: Temp Pulse Resp BP Pulse Ox 98.2 F 92 22 H 166/83 H 95 12/25/18 16:29 12/25/18 16:29 12/25/18 16:29 12/25/18 16:29 12/25/18 16:29 - HEENT Pharynx: No: Tonsillar hypertrophy, Uvular edema, Potential airway comprom. - Respiratory Respiratory status: No respiratory distress Course - Vital Signs Vital signs: Temp Pulse Resp BP Pulse Ox 98.2 F 92 22 H 166/83 H 95 12/25/18 16:29 12/25/18 16:29 12/25/18 16:29 12/25/18 16:29 12/25/18 16:29 Doctor's Discharge - Discharge Referrals: SAMARA KELLEY MD [Primary Care Provider] - Follow up as needed
--- NOTE | 2018-12-25 17:42 | RADIOLOGY REPORT (SQ) ---
EXAM DESCRIPTION: CHEST 2 VIEWS COMPLETED DATE/TIME: 12/25/2018 5:31 pm REASON FOR STUDY: janessa, bigg COMPARISON: 02/17/2018 EXAM PARAMETERS: NUMBER OF VIEWS: two views TECHNIQUE: Digital Frontal and Lateral radiographic views of the chest acquired. RADIATION DOSE: NA LIMITATIONS: none FINDINGS: LUNGS AND PLEURA: No opacities, masses or pneumothorax. No pleural effusion. MEDIASTINUM AND HILAR STRUCTURES: No masses or contour abnormalities. HEART AND VASCULAR STRUCTURES: Heart normal size. No evidence for failure. BONES: No acute findings. HARDWARE: None in the chest. OTHER: No other significant finding. IMPRESSION: NO ACUTE RADIOGRAPHIC FINDING IN THE CHEST. TECHNICAL DOCUMENTATION: JOB ID: [id number] [employer]- All Rights Reserved Reading location - IP/workstation name: [email or web address]
[2018-12-25 17:53] LABS: ABSOLUTE LYMPHOCYTES (AUTO) 0.9 10^3/uL (0.5-4.7); ABSOLUTE MONOCYTES (AUTO) 0.2 10^3/uL (0.1-1.4); ABSOLUTE NEUT (AUTO) 7.1 10^3/uL (1.7-8.2); BASOPHILS % (AUTO) 0.5 % (0-2); HEMATOCRIT 37.3 % (36.0-47.0); LYMPHOCYTES % (AUTO) 11.2 % (13-45); MEAN CORPUSCULAR HGB CONC 32.1 g/dL (32.0-36.0); MEAN CORPUSCULAR VOLUME 72 fl (80-97); PLATELET COUNT 294 10^3/uL (150-450); RED BLOOD COUNT 5.19 10^6/uL (3.72-5.28); SEGMENTED NEUTROPHILS % (AUTO) 85.3 % (42-78); TOTAL CELLS COUNTED % (AUTO) 100 %; WHITE BLOOD COUNT 8.3 10^3/uL (4.0-10.5)
[2018-12-25 18:13] LABS: ALANINE AMINOTRANSFERASE 25 U/L (9-52); ALBUMIN 4.7 g/dL (3.5-5.0); ALKALINE PHOSPHATASE 87 U/L (38-126); ANION GAP 9 (5-19); ASPARTATE AMINO TRANSFERASE 23 U/L (14-36); BILIRUBIN,DIRECT 0.4 mg/dL (0.0-0.4); BILIRUBIN,TOTAL 0.5 mg/dL (0.2-1.3); BLOOD UREA NITROGEN 15 mg/dL (7-20); CALCIUM 10.4 mg/dL (8.4-10.2); CARBON DIOXIDE 29 mmol/L (22-30); CHLORIDE 105 mmol/L (98-107); CREATINE KINASE 50 U/L (30-135); GLUCOSE 102 mg/dL (75-110); POTASSIUM 4.2 mmol/L (3.6-5.0); SODIUM 142.9 mmol/L (137-145); TOTAL PROTEIN 8.3 g/dL (6.3-8.2)
[2018-12-25 18:23] LABS: CREATINE KINASE MB 0.33 ng/mL (<4.55); NT PRO BNP 202 pg/mL (5-900)
[2018-12-25 18:24] LABS: TROPONIN I < 0.012 ng/mL
--- NOTE | 2018-12-25 20:51 | EKG REPORT ---
SEVERITY:- ABNORMAL ECG - SINUS RHYTHM ATRIAL PREMATURE COMPLEX LEFT VENTRICULAR HYPERTROPHY : Confirmed by: Ruddy Cardenas MD 25-Dec-2018 20:50:53
--- NOTE | 2018-12-25 21:35 | ER Document Report ---
ED General - General Chief Complaint: Allergic Reaction Stated Complaint: POSSIBLE ALLERGIC REACTION Time Seen by Provider: 12/25/18 16:52 Primary Care Provider: SAMARA KELLEY MD [Primary Care Provider] - Follow up as needed Mode of Arrival: Ambulatory TRAVEL OUTSIDE OF THE [place] IN LAST 30 DAYS: No - HPI Notes: Patient is a 63-year-old female presents to the emergency department. She states she feels like she is having an allergic reaction to IV dye. She does have a history of that. She had an IV contrasted scan performed at 930 this morning ordered by Dr. Templeton. She was premedicated 12 hours before, then 2 hours before. She states he had absolutely no symptoms during the exam. She states that about an hour to 90 minutes after returning home, she developed shortness of breath. She states he has had some intermittent chest pain with it as well. Her initial reaction was hives and shortness of breath. She denies any hives, no itching. She cannot really describe the chest pain to me. She states it only lasts a few seconds and it "just hurts." She has had a heart attack in the past, states this feels nothing like it. - Related Data Allergies/Adverse Reactions: Iodinated Contrast- Oral and IV Dye Allergy (Severe, Verified 02/17/18 10:46) hives, palpitations, and SOB levofloxacin [From Levaquin] Allergy (Severe, Verified 02/17/18 10:46) Shortness of Breath carisoprodol [From Soma] Allergy (Verified 02/17/18 10:46) Difficulty breathing Past Medical History - General Information source: Patient - Social History Smoking Status: Former Smoker Chew tobacco use (# tins/day): No Frequency of alcohol use: None Drug Abuse: None Family History: COPD Patient has suicidal ideation: No Patient has homicidal ideation: No - Past Medical History Cardiac Medical History: Reports: Hx Congestive Heart Failure, Hx Heart Attack, Hx Hypercholesterolemia, Hx Hypertension Denies: Hx Coronary Artery Disease Pulmonary Medical History: Reports: Hx Asthma, Hx COPD Denies: Hx Bronchitis, Hx Pneumonia, Hx Tuberculosis Neurological Medical History: Denies: Hx Cerebrovascular Accident, Hx Seizures Endocrine Medical History: Reports: Hx Diabetes Mellitus Type 2 Renal/ Medical History: Denies: Hx Peritoneal Dialysis Malignancy Medical History: Reports: Hx Ovarian Cancer, Hx Renal (Kidney) Cancer GI Medical History: Reports: Hx Irritable Bowel Musculoskeletal Medical History: Denies Hx Arthritis Past Surgical History: Reports: Hx Abdominal Surgery - bladder suspension, mass removal, Hx Appendectomy, Hx Section, Hx Cholecystectomy, Hx Gynecologic Surgery - tubal and hysterectomy mass removed from retroperitoneal, Hx Hysterectomy, Hx Orthopedic Surgery - back, Hx Tonsillectomy. Denies: Hx Pacemaker - Immunizations Hx Diphtheria, Pertussis, Tetanus Vaccination: No Review of Systems - Review of Systems Constitutional: No symptoms reported EENT: No symptoms reported Cardiovascular: See HPI Gastrointestinal: No symptoms reported Genitourinary: No symptoms reported Musculoskeletal: No symptoms reported Skin: No symptoms reported Neurological/Psychological: No symptoms reported Physical Exam - Vital signs Vitals: Temp Pulse Resp BP Pulse Ox 98.2 F 92 22 H 166/83 H 95 12/25/18 16:29 12/25/18 16:29 12/25/18 16:29 12/25/18 16:29 12/25/18 16:29 - Notes Notes: Vital signs reviewed, please refer to chart. Patient is a 63-year-old female, appears extremely anxious, no acute distress. Patient is normocephalic, atraumatic. Pupils equal round, reactive to light. Oral mucosa is moist. There is no facial or oral swelling noted. Neck is supple without meningismus. Heart is regular rate and rhythm. Lungs are clear to auscultation bilaterally. Abdomen is soft, nontender, normoactive bowel sounds throughout. Extremities without cyanosis, clubbing. She has 3+ bilateral lower extremity pitting edema, but no posterior calf tenderness. He states the edema is chronic. Peripheral pulses are equal. Skin is warm and dry. Patient is awake, alert, neurological exam is nonfocal. Course - Re-evaluation Re-evalutation: 12/25/18 21:32 Patient presents to the emergency department for evaluation. She states she is concerned she is having allergic reaction to the dye that she received. She had no instant symptoms. She has noticed swelling, no angioedema, no hives, no wheezes. My strong suspicion is that this patient is feeling more anxious than anything else. She was verbally reassured. She was maintained on the monitor and remained vitally stable. I did consider steroids in this patient, but she is a diabetic. I do not see any true allergic reaction at this time. She did have some chest pain, but it certainly did not seem anginal. Her work-up here was negative. She is to follow-up closely with primary care on Friday. She is to return to the emergency department with worsening or new concerning symptoms. 12/25/18 21:33 - Vital Signs Vital signs: Temp Pulse Resp BP Pulse Ox 98.2 F 92 12 142/75 H 95 12/25/18 16:29 12/25/18 16:29 12/25/18 20:01 12/25/18 20:01 12/25/18 20:01 - Laboratory Result Diagrams: 12/25/18 17:40 12/25/18 17:40 Laboratory results interpreted by me: 12/25/18 12/25/18 17:40 17:40 MCV 72 L MCH 23.0 L RDW 17.0 H Seg Neutrophils % 85.3 H Lymphocytes % 11.2 L Calcium 10.4 H Total Protein 8.3 H - Diagnostic Test Radiology reviewed: Reports reviewed - No acute cardiopulmonary disease - EKG Interpretation by Me Additional EKG results interpreted by me: 12/25/18 21:32 Sinus bradycardia with a rate of 55 bpm, PAC noted. Left axis deviation. Nonspecific ST changes, but no acute changes concerning for ischemia or infarction. Unchanged from prior study of February 18, 2018. Discharge - Discharge Clinical Impression: Chest pain, Anxiety Condition: Stable Disposition: HOME, SELF-CARE Instructions: Chest Pain of Unclear Cause ([facility]), Anxiety ([facility]) Additional Instructions: No clear cause was found for your symptoms today. I do not see any signs of an allergic reaction. If you develop increasing pain, difficulty breathing, or any other new or concerning symptoms, return immediately to the emergency department for evaluation. Referrals: SAMARA KELLEY MD [Primary Care Provider] - Follow up as needed
[2018-12-25 22:26] VITALS: BP 121/60
== END 2018-12-25 21:55 | disposition home or self-care (01) ==
LOC: ER 16:19
DX: R07.9 Chest pain, unspecified (principal); F41.9 Anxiety disorder, unspecified; T78.40XA Allergy, unspecified, initial encounter; R06.02 Shortness of breath; Z87.891 Personal history of nicotine dependence; I50.9 Heart failure, unspecified; I11.0 Hypertensive heart disease with heart failure; J44.9 Chronic obstructive pulmonary disease, unspecified; E11.9 Type 2 diabetes mellitus without complications
CPT/HCPCS: 93005; 99284; 36415; 82553; 82550; 85025; 80053; 84484; 83880; 71046; 93010; J1200

== ENCOUNTER → 2019-01-19 | Outpatient (CLI) | payer MEDICARE, MEDICAID ==
--- NOTE | 2019-01-20 12:22 | RADIOLOGY REPORT (SQ) ---
EXAM DESCRIPTION: PET CT SKULL/THIGH COMPLETED DATE/TIME: 01/20/2019 7:43 am REASON FOR STUDY: C82.90 FOLLICULAR LYMPHOMA, UNSPECIFIED, UNSPECIFIED SITE C82.90 FOLLICULAR LYMPH AMY, UNSPECIFIED, UNSPECIFIED SITE COMPARISON: PET-CT dated 06/30/2011, CT chest dated 02/09/2018, CT abdomen pelvis dated 02/09/2018 RADIONUCLIDE AND DOSE: 13.32 mCi F18 FDG The route of agent administration: Intravenous FASTING BLOOD SUGAR: 91 mg/dl CONTRAST TYPE AND DOSE: No CT contrast given. TECHNIQUE: Blood glucose level was verified. Above dose of FDG was injected intravenously. 2-D seg mented attenuation correction images were obtained from the base of the skull to the midthighs. Nonc ontrast CT images were obtained for attenuation correction and fusion with emission images. CT image s were performed without oral or intravenous contrast and are not sensitive for parenchymal lesions. A series of overlapping emission PET images were obtained. Images reviewed and manipulated at [facility] work station by the radiologist. Images stored on PACS. LIMITATIONS: None. FINDINGS: HEAD AND NECK: No areas of abnormal metabolic activity in the soft tissues of the head and neck. Small mandibular node previously described is no longer identified. There is a surgical clip at the site. CHEST: No areas of abnormal metabolic activity in the chest. ABDOMEN AND PELVIS: No areas of abnormal metabolic activity in the abdomen or pelvis. Expected physi ologic activity is present in the genitourinary system and bowel. Periaortic adenopathy previously d escribed has resolved. PROXIMAL LOWER EXTREMITIES: No areas of abnormal metabolic activity in the soft tissues of the lower extremities. BONES: No abnormal metabolic activity in the visualized skeleton. ADDITIONAL CT FINDINGS: No additional significant findings on the noncontrast CT images. OTHER: No other significant findings. IMPRESSION: Negative PET-CT. Areas of abnormal uptake described on prior PET-CT 2010 are no longer identified. TECHNICAL DOCUMENTATION: JOB ID: [id number] [employer]- All Rights Reserved Reading location - IP/workstation name: [email or web address]
== END ==
LOC: RAD 15:51
PROVIDERS: ATTEND Internal Medicine Medical Oncology
DX: C82.11 Follicular lymphoma grade II, lymph nodes of head, face, and neck (principal)
CPT/HCPCS: 78815; A9552

== ENCOUNTER 2019-07-05 17:13 | Emergency (ER) | payer MEDICAID ==
--- NOTE | 2019-07-05 17:58 | ER Document Report ---
ED Medical Screen (RME) - General Chief Complaint: Shortness Of Breath Stated Complaint: WHEEZING Time Seen by Provider: 07/05/19 17:53 Primary Care Provider: TALHA RUSSO MD [Primary Care Provider] - Follow up as needed Mode of Arrival: Ambulatory Information source: Patient Notes: 64-year-old female presented to ED for complaint of shortness of breath, cough, and wheezing since Friday. She states she been trying to treat herself with cough medicines and using her Pro Air and Advair. She states she has a history of asthma abdominal hernia sleep apnea she has had a appendectomy and a hysterectomy she had a history of non-Hodgkin's lymphoma and states she is in remission now she is a former smoker does not drink or use drugs. Patient is alert and oriented respirations regular nonlabored. I have greeted and performed a rapid initial assessment of this patient. A comprehensive ED assessment and evaluation of the patient, analysis of test results and completion of medical decision making process will be conducted by an additional ED providers. TRAVEL OUTSIDE OF THE [place] IN LAST 30 DAYS: No - Related Data Allergies/Adverse Reactions: Iodinated Contrast Media [Iodinated Contrast- Oral and IV Dye] Allergy (Severe, Verified 07/05/19 17:46) hives, palpitations, and SOB levofloxacin [From Levaquin] Allergy (Severe, Verified 07/05/19 17:46) Shortness of Breath carisoprodol [From Soma] Allergy (Verified 07/05/19 17:46) Difficulty breathing Home Medications: advair. proair. zofran. stomach hernia medication/dissolves in mouth. lisinopril Past Medical History - Social History Chew tobacco use (# tins/day): No Frequency of alcohol use: None Drug Abuse: None - Past Medical History Cardiac Medical History: Reports: Hx Congestive Heart Failure, Hx Heart Attack, Hx Hypercholesterolemia, Hx Hypertension Denies: Hx Coronary Artery Disease Pulmonary Medical History: Reports: Hx Asthma, Hx COPD Denies: Hx Bronchitis, Hx Pneumonia, Hx Tuberculosis Neurological Medical History: Denies: Hx Cerebrovascular Accident, Hx Seizures Endocrine Medical History: Reports: Hx Diabetes Mellitus Type 2 Renal/ Medical History: Denies: Hx Peritoneal Dialysis Malignancy Medical History: Reports: Hx Ovarian Cancer, Hx Renal (Kidney) Cancer GI Medical History: Reports: Hx Irritable Bowel Musculoskeltal Medical History: Denies Hx Arthritis Past Surgical History: Reports: Hx Abdominal Surgery - bladder suspension, mass removal, Hx Appendectomy, Hx Section, Hx Cholecystectomy, Hx Gynecol ogic Surgery - tubal and hysterectomy mass removed from retroperitoneal, Hx Hysterectomy, Hx Orthopedic Surgery - back, Hx Tonsillectomy. Denies: Hx Pacemaker - Immunizations Hx Diphtheria, Pertussis, Tetanus Vaccination: No Physical Exam - Vital signs Vitals: Temp Pulse Resp BP Pulse Ox 98.1 F 61 18 167/85 H 97 07/05/19 17:25 07/05/19 17:25 07/05/19 17:25 07/05/19 17:25 07/05/19 17:25 Course - Vital Signs Vital signs: Temp Pulse Resp BP Pulse Ox 98.1 F 61 18 167/85 H 97 07/05/19 17:25 07/05/19 17:25 07/05/19 17:25 07/05/19 17:25 07/05/19 17:25 Doctor's Discharge - Discharge Referrals: TALHA RUSSO MD [Primary Care Provider] - Follow up as needed
[2019-07-05 18:37] LABS: ABSOLUTE EOSINOPHILS # (AUTO) 0.3 10^3/uL (0.0-0.6); ABSOLUTE LYMPHOCYTES (AUTO) 1.4 10^3/uL (0.5-4.7); ABSOLUTE MONOCYTES (AUTO) 0.4 10^3/uL (0.1-1.4); ABSOLUTE NEUT (AUTO) 2.5 10^3/uL (1.7-8.2); BASOPHILS % (AUTO) 0.8 % (0-2); EOSINOPHILS % (AUTO) 5.8 % (0-6); HEMATOCRIT 36.3 % (36.0-47.0); HEMOGLOBIN 11.5 g/dL (12.0-15.5); LYMPHOCYTES % (AUTO) 30.3 % (13-45); MEAN CORPUSCULAR HEMOGLOBIN 22.8 pg (27.0-33.4); MEAN CORPUSCULAR HGB CONC 31.7 g/dL (32.0-36.0); MEAN CORPUSCULAR VOLUME 72 fl (80-97); MONOCYTES % (AUTO) 9.2 % (3-13); PLATELET COUNT 248 10^3/uL (150-450); RED BLOOD COUNT 5.06 10^6/uL (3.72-5.28); RED CELL DISTRIBUTION WIDTH 15.7 % (11.5-14.0); SEGMENTED NEUTROPHILS % (AUTO) 53.9 % (42-78); TOTAL CELLS COUNTED % (AUTO) 100 %; WHITE BLOOD COUNT 4.6 10^3/uL (4.0-10.5)
--- NOTE | 2019-07-05 18:40 | RADIOLOGY REPORT (SQ) ---
EXAM DESCRIPTION: CHEST 2 VIEWS COMPLETED DATE/TIME: 07/05/2019 6:13 pm REASON FOR STUDY: Cough congestion, history asthma non-Hodgkin's lym COMPARISON: 12/25/2018 EXAM PARAMETERS: NUMBER OF VIEWS: two views TECHNIQUE: Digital Frontal and Lateral radiographic views of the chest acquired. RADIATION DOSE: NA LIMITATIONS: none FINDINGS: LUNGS AND PLEURA: No opacities, masses or pneumothorax. No pleural effusion. MEDIASTINUM AND HILAR STRUCTURES: No masses or contour abnormalities. HEART AND VASCULAR STRUCTURES: Cardiomegaly. No pulmonary edema. BONES: No acute findings. HARDWARE: None in the chest. OTHER: No other significant finding. IMPRESSION: Cardiomegaly without pulmonary edema. TECHNICAL DOCUMENTATION: JOB ID: [id number] [employer]- All Rights Reserved Reading location - IP/workstation name: [email or web address]
[2019-07-05 18:42] LABS: APPEARANCE,URINE SLIGHTLY-CLOUDY; BILIRUBIN,URINE NEGATIVE (NEGATIVE); COLOR,URINE YELLOW; GLUCOSE, URINE NEGATIVE (NEGATIVE); KETONES,URINE NEGATIVE (NEGATIVE); PROTEIN,URINE NEGATIVE (NEGATIVE); URINE SPECIFIC GRAVITY 1.016
[2019-07-05] MEDS ORDERED: IPRATROPIUM/ALBUTEROL 0.5-2.5 MG/3 ML AMPUL NEB ONE (19:02)
[2019-07-05] MEDS ORDERED: METHYLPREDNISOLONE INJ 125 MG/2 ML SDV IV ONE (19:03)
[2019-07-05 19:04] LABS: ALBUMIN 4.3 g/dL (3.5-5.0); ALKALINE PHOSPHATASE 83 U/L (38-126); ANION GAP 12 (5-19); ASPARTATE AMINO TRANSFERASE 19 U/L (14-36); BILIRUBIN,DIRECT 0.2 mg/dL (0.0-0.4); BILIRUBIN,TOTAL 0.4 mg/dL (0.2-1.3); BLOOD UREA NITROGEN 13 mg/dL (7-20); CALCIUM 9.7 mg/dL (8.4-10.2); CARBON DIOXIDE 27 mmol/L (22-30); CHLORIDE 105 mmol/L (98-107); GLUCOSE 108 mg/dL (75-110); POTASSIUM 4.1 mmol/L (3.6-5.0); TOTAL PROTEIN 7.6 g/dL (6.3-8.2)
[2019-07-05] MEDS: MAGNESIUM SULFATE/D5W 1 GM/100 ML RTUPB IV SCH ×2 (19:24→19:29)
[2019-07-05 20:43] LABS: A TYPE INFLUENZA AG NEGATIVE (NEGATIVE); B INFLUENZA AG NEGATIVE (NEGATIVE)
--- NOTE | 2019-07-05 23:59 | ER Document Report ---
ED Respiratory Problem - General Chief Complaint: Shortness Of Breath Stated Complaint: WHEEZING Time Seen by Provider: 07/05/19 17:53 Primary Care Provider: TALHA RUSSO MD [ACTIVE STAFF] - Follow up as needed Mode of Arrival: Ambulatory Notes: Ms. Arrieta is a 64-year-old female with PMH of hypertension, MINGO on CPAP, hypothyroidism, hyperlipidemia presenting to the ED for cough and shortness of breath. Patient states this been ongoing for the past week but acutely worsened today. She states the cough is nonproductive. She was a heavy smoker and smoked 2 packs a day for approximately 23 years but quit over 20 years ago. She endorses right upper back pain. She endorses chills today with subjective fever 2 days ago. She denies any chest pain, abdominal pain. Intermittent nausea without any episodes of vomiting. Normal bowel movements without any melena. Patient denies any lightheadedness. No known ill contacts. Patient has been using her daily Advair twice a day as prescribed and albuterol as needed. Last use was approximately 6 to 7 hours ago with minimal improvement in symptoms. TRAVEL OUTSIDE OF THE [place] IN LAST 30 DAYS: No - Related Data Allergies/Adverse Reactions: Iodinated Contrast Media [Iodinated Contrast- Oral and IV Dye] Allergy (Severe, Verified 07/05/19 17:46) hives, palpitations, and SOB levofloxacin [From Levaquin] Allergy (Severe, Verified 07/05/19 17:46) Shortness of Breath carisoprodol [From Soma] Allergy (Verified 07/05/19 17:46) Difficulty breathing Home Medications: advair. proair. zofran. stomach hernia medication/dissolves in mouth. lisinopril Past Medical History - General Information source: Patient - Social History Smoking Status: Former Smoker Chew tobacco use (# tins/day): No Frequency of alcohol use: None Drug Abuse: None Family History: Reviewed & Not Pertinent, COPD Patient has suicidal ideation: No Patient has homicidal ideation: No - Past Medical History Cardiac Medical History: Reports: Hx Congestive Heart Failure, Hx Heart Attack - 2014, Hx Hypercholesterolemia, Hx Hypertension Denies: Hx Coronary Artery Disease Pulmonary Medical History: Reports: Hx Asthma, Hx COPD Denies: Hx Bronchitis, Hx Pneumonia, Hx Tuberculosis Neurological Medical History: Denies: Hx Cerebrovascular Accident, Hx Seizures Endocrine Medical History: Reports: Hx Diabetes Mellitus Type 2 Renal/ Medical History: Denies: Hx Peritoneal Dialysis Malignancy Medical History: Reports: Hx Ovarian Cancer, Hx Renal (Kidney) Cancer GI Medical History: Reports: Hx Irritable Bowel Musculoskeletal Medical History: Denies Hx Arthritis Past Surgical History: Reports: Hx Abdominal Surgery - bladder suspension, mass removal, Hx Appendectomy, Hx Section, Hx Cholecystectomy, Hx Gynecologic Surgery - tubal and hysterectomy mass removed from retroperitoneal, Hx Hysterectomy, Hx Orthopedic Surgery - back, Hx Tonsillectomy. Denies: Hx P acemaker - Immunizations Hx Diphtheria, Pertussis, Tetanus Vaccination: No Review of Systems - Review of Systems Constitutional: See HPI EENT: No symptoms reported Cardiovascular: No symptoms reported Respiratory: No symptoms reported Gastrointestinal: See HPI Genitourinary: No symptoms reported Female Genitourinary: No symptoms reported Musculoskeletal: No symptoms reported Skin: No symptoms reported Hematologic/Lymphatic: No symptoms reported Neurological/Psychological: No symptoms reported Physical Exam - Vital signs Vitals: Temp Pulse Resp BP Pulse Ox 98.1 F 61 18 167/85 H 97 07/05/19 17:25 07/05/19 17:25 07/05/19 17:25 07/05/19 17:25 07/05/19 17:25 Interpretation: Normal, Hypertensive - General General appearance: Appears well, Alert - HEENT Head: Normocephalic, Atraumatic Eyes: Normal Pupils: PERRL - Respiratory Respiratory status: No respiratory distress Chest status: Nontender Breath sounds: Decreased air movement, Nonproductive cough, Wheezing - Diffuse expiratory wheezes and coarse breath sounds. No increased work of breathing or tachypnea noted. Chest palpation: Normal - Cardiovascular Rhythm: Regular Heart sounds: Normal auscultation Murmur: No - Abdominal Inspection: Normal Distension: No distension Bowel sounds: Normal Tenderness: Nontender Organomegaly: No organomegaly - Back Back: Normal, Nontender, Deformity/step-off, Vertebra tenderness. No: CVA tenderness - Bilaterally - Extremities General upper extremity: Normal inspection, Nontender, Normal color, Normal ROM, Normal temperature General lower extremity: Normal inspection, Nontender, Normal color, Normal ROM, Normal temperature, Normal weight bearing. No: Lawrence's sign - Neurological Neuro grossly intact: Yes Cognition: Normal Orientation: AAOx4 [place] Coma Scale Eye Opening: Spontaneous [place] Coma Scale Verbal: Oriented [place] Coma Scale Motor: Obeys Commands [place]cas Coma Scale Total: 15 Speech: Normal Motor strength normal: LUE, RUE, LLE, RLE Sensory: Normal - Psychological Associated symptoms: Normal affect, Normal mood - Skin Skin Temperature: Warm Skin Moisture: Dry Skin Color: Normal Course - Re-evaluation Re-evalutation: Patient is generally well-appearing and nontoxic. Initial vitals notable for elevated blood pressure. Patient states that her shortness of breath has w orsened. Labs and chest x-ray ordered from triage. CBC does not show significant leukocytosis or left hip. H&H stable. CMP limits. Chest x-ray shows cardiomegaly with [place] edema. No evidence of pneumonia. UA is UTI. However the patient does not have costovertebral tenderness on physical examination to suggest pyelonephritis. Patient was given 3 DuoNeb's on initial evaluation for her likely COPD exacerbation. She is also given Solu-Medrol, and 2 g magnesium sulfate. 07/05/19 23:55 Reassessed patient. Wheezing is completely resolved. She is breathing more comfortably. 07/05/19 23:57 Patient given ceftriaxone for her UTI. Patient will be discharged with Keflex for her UTIs remaining course. She will also be given prednisone daily for her COPD exacerbation. Given return precautions and instructed to regularly use her BiPAP machine. - Vital Signs Vital signs: Temp Pulse Resp BP Pulse Ox 99.0 F 61 17 118/64 98 07/05/19 18:33 07/05/19 17:25 07/05/19 21:01 07/05/19 21:01 07/05/19 18:33 - Laboratory Result Diagrams: 07/05/19 18:18 07/05/19 18:18 Laboratory results interpreted by me: 07/05/19 07/05/19 18:18 18:18 Hgb 11.5 L MCV 72 L MCH 22.8 L MCHC 31.7 L RDW 15.7 H Urine Blood SMALL H Urine Nitrite (Reflex) POSITIVE H Urine Urobilinogen 2.0 H Leukocyte Esterase Rfl LARGE H Discharge - Discharge Clinical Impression: COPD exacerbation, UTI (urinary tract infection), URI (upper respiratory infection) Condition: Good Disposition: HOME, SELF-CARE Instructions: Cephalexin ([facility]), Upper Respiratory Illness ([facility]), Viral Syndrome ([facility]), Urinary Tract Infection ([facility]), Chronic Obstructive Lung Disease ([facility]) Prescriptions: Prednisone [Deltasone 20 mg Tablet] 3 tab PO DAILY 5 Days tablet Cephalexin Monohydrate [Keflex 500 mg Capsule] 500 mg PO TID 7 Days capsule Referrals: TALHA RUSSO MD [ACTIVE STAFF] - Follow up as needed
[2019-07-06] MEDS ORDERED: CEFTRIAXONE 1 GM/D5W RTU 1 GM/50 ML RTUPB IV ONE (01:00)
[2019-07-06 01:43] VITALS: BP 126/65
== END 2019-07-06 01:41 | disposition home or self-care (01) ==
LOC: ER 17:13
DX: J44.1 Chronic obstructive pulmonary disease with (acute) exacerbation (principal); J06.9 Acute upper respiratory infection, unspecified; N39.0 Urinary tract infection, site not specified; I11.9 Hypertensive heart disease without heart failure; G47.33 Obstructive sleep apnea (adult) (pediatric); R05 Cough; R06.02 Shortness of breath; Z87.891 Personal history of nicotine dependence; M54.9 Dorsalgia, unspecified; R68.83 Chills (without fever); R11.0 Nausea; E11.9 Type 2 diabetes mellitus without complications; K46.9 Unspecified abdominal hernia without obstruction or gangrene; Z79.899 Other long term (current) drug therapy; Z79.51 Long term (current) use of inhaled steroids; Z87.01 Personal history of pneumonia (recurrent); Z85.43 Personal history of malignant neoplasm of ovary; Z85.528 Personal history of other malignant neoplasm of kidney; Z91.041 Radiographic dye allergy status; Z88.1 Allergy status to other antibiotic agents; Z88.8 Allergy status to other drugs, medicaments and biological substances
CPT/HCPCS: 36415; 87040; 85025; 80053; 81001; 87804; 71046; J2930; J3475; J0696; J7620; 87086; 87088; 87186; 94640; 96365; 96367; 96375; 99285